=== PATIENT | male | born 1935 | race Caucasian/White ===

== ENCOUNTER 2019-11-15 03:15 | Observation (INO) | payer MEDICARE, SELFPAY ==
[2019-11-15] VITALS (13 sets, daily range): BP systolic 105–142; BP diastolic 51–79; PULSE 83–120; RESP 15–22; TEMP 36.4–37; O2SAT 94–99; BMI 28.0
--- NOTE | ~2019-11-15 | US_ITS ---
EXAMINATION: US carotid duplex BI DATE: 11/15/2019 09:50 INDICATION: Syncope. TECHNIQUE: Grayscale, color Doppler, and pulsed Doppler images of the cervical carotid arteries were obtained. The degree of vessel stenosis is placed in one of the following categories: normal, <50%, 5 0-69%, >=70% but less than near-occlusion, near-occlusion, or total occlusion. Note that percent sten osis relative to normal distal artery lumen diameter is indirectly measured from velocity measurement s as described by Papito, et al. Radiology 2003; 229:340-346. COMPARISON: None. FINDINGS: RIGHT: The right common carotid artery (CCA) peak systolic velocity (PSV) is 105 cm/s. The right internal ca rotid artery (ICA) PSV is 543 cm/s. The right ICA end-diastolic velocity (EDV) is 119 cm/s. The right ICA/CCA PSV ratio is 5.2. Grayscale and color Doppler images yield an estimate of >=50% diameter red uction from plaque in the ICA. There is antegrade flow in the right vertebral artery. LEFT: The left CCA PSV is 145 cm/s. The left ICA PSV is 115 cm/s. The left ICA EDV is 24 cm/s. The left ICA /CCA PSV ratio is 0.8. Grayscale and color Doppler images yield an estimate of <50% diameter reductio n from plaque in the ICA. There is antegrade flow in the left vertebral artery. IMPRESSION: 1. 50-69% stenosis in the right internal carotid artery. 2. <50% stenosis in the left internal carotid artery. Reviewed, dictated and finalized at location A. UP
--- NOTE | ~2019-11-15 | CT_ITS ---
EXAMINATION: CT brain wo con DATE: 11/15/2019 04:05 INDICATION: Syncope. Head injury. TECHNIQUE: Computed tomography (CT) of the head was performed without intravenous contrast. The mA wa s adjusted according to patient size. Iterative reconstruction technique was employed. The dose-lengt h product was 605.33 mGy-cm. COMPARISON: None FINDINGS: There are scattered areas of low attenuation in the cerebral white matter. There is an old lacunar infarct in left caudate nucleus. There is no intracranial hemorrhage, acute infarction, or ab normal intracranial mass lesion. The ventricles are normal in size. There is mucosal thickening in th e paranasal sinuses with thickening and sclerosis of some of the sinus gonzalez, consistent with chronic sinusitis. The mastoid air cells are normal. There are likely changes of ocular lens replacement graciela geries. IMPRESSION: 1. 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 2. Moderate nonspecific cerebral white matter disease, which likely represents chronic small vessel i schemic disease. 3. Chronic sinusitis. Reviewed, dictated and finalized at location A. ER HELPER IMPRESSION: 1. 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 2. Moderate nonspecific cerebral white matter disease, which likely represents chronic small vessel ischemic disease. 3. Chronic sinusitis.
--- NOTE | ~2019-11-15 | XR_ITS ---
EXAMINATION: XR chest 1V portable DATE: 11/15/2019 04:22 INDICATION: Chest pain. TECHNIQUE: A single frontal view of the chest was obtained. COMPARISON: Chest 2 views 03/31/2016, CT abdomen and pelvis 10/09/2017 FINDINGS: The chest demonstrates clear lungs without pneumonia, pleural effusion, or pneumothorax. Th e heart size is normal. There are old healed right rib fractures. IMPRESSION: 1. No acute cardiopulmonary disease. Reviewed, dictated and finalized at location A. E BREAKER
--- NOTE | ~2019-11-15 | XR_ITS ---
EXAMINATION: XR hip LT 2V w AP pelvis DATE: 11/15/2019 04:23 INDICATION: Left hip pain. Fall. TECHNIQUE: An anteroposterior view of the pelvis and 3 views of left hip were obtained. COMPARISON: CT abdomen and pelvis 10/09/2017 FINDINGS: Bone alignment is normal. No fracture. There is severe lower lumbar spondylosis. There is m ild osteoarthritis of the hips. IMPRESSION: 1. Mild osteoarthritis of the hips. Reviewed, dictated and finalized at location A. CLEARER
--- NOTE | 2019-11-15 03:38 | ECG_ITS ---
Measurements Intervals [place] Rate: 80 P: OR: 0 QRS: 34 QRSD: 98 T: 46 QT: 393 QTc: 455 Interpretive Statements ATRIAL FIBRILLATION LOW QRS VOLTAGE IN LIMB LEADS ABNORMAL ECG Electronically Signed On 11-15-2019 8:56:27 EMERGENCY ROOM TECH by Chaitanya Henrdon D.O.
--- NOTE | 2019-11-15 03:43 | ED.SYNCOPE ---
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 Pt c/o sob when EMS arrived, I have severe COPD , was given 2 duonebs, feeling better upon arrival to the ER. Pt also c/o left hip pain. Pt is on Xarelto for atrial fib. Denies neck pain, back pain, chest pain or abd pain. Denies speech or visual disturbance, focal weakness, or numbness. MD complaint: loss of consciousness Related Data Home Medications Medication Instructions Recorded Confirmed tiotropium bromide 2.5 2 inhalation INHALATION QAM 10/30/19 mcg/actuation mist for inhalation albuterol sulfate 90 mcg/actuation 1 inhalation INHALATION Q4H 11/02/19 aerosol inhaler doxazosin 4 mg tablet 4 mg PO DAILY 11/02/19 finasteride 5 mg tablet 5 mg PO DAILY 11/02/19 furosemide 40 mg tablet 40 mg PO QAM 11/02/19 ranitidine HCl 150 mg capsule 150 mg PO DAILY 11/02/19 rivaroxaban 20 mg tablet 20 mg PO DAILY 11/02/19 Allergies Allergy/AdvReac Type Severity Reaction Status Date / Time sucralfate Allergy Unknown unk Verified 11/15/19 04:36 Review of Systems Review of Systems: All systems reviewed & are unremarkable except as noted in HPI and below Constitutional: Constitutional: Denies body ache(s), Denies chills, Denies excessive sweating, Denies fatigue, Denies fever(s), Denies headache(s), Denies lethargy, Denies malaise, Denies weakness and Denies weight loss Eyes: Eyes: Denies blurry vision, Denies change in vision and Denies loss of vision ENT: Denies dizziness, Denies ear discharge, Denies headache(s), Denies lip swelling, Denies epistaxis, Denies nasal congestion, Denies neck pain, Denies throat swelling and Denies tongue swelling Cardiovascular: Cardiovascular: Denies chest pain, Denies chest pain at rest, Denies chest pain with activity, Denies diaphoresis, Denies rapid heart rate, Denies edema, Denies irregular heart rhythm, Denies lightheadedness, Denies palpitations, Denies dyspnea and Denies dyspnea on exertion Respiratory: Respiratory: Denies chest congestion, Denies cough, Denies hemoptysis, Reports dyspnea and Denies dyspnea on exertion Gastrointestinal: Gastrointestinal: Denies abdominal pain, Denies melena, Denies hematochezia, Denies diarrhea, Denies nausea, Denies vomiting and Denies hematemesis Musculoskeletal: Musculoskeletal: Denies abnormal gait, Denies deformity, Denies joint swelling, Denies limited range of motion, Denies neck pain and Denies numbness Neurologic: Denies Abnormal speech present, Denies abnormal gait, Denies confusion, Denies dizziness, Denies headache(s), Denies focal weakness, Denies loss of vision, Denies numbness, Denies Other visual disturbances, Denies Sensory deficit (Neuro) and Denies weakness Psychiatric: Psychiatric: Denies confusion, Denies depression, Denies auditory hallucinations, Denies homicidal ideation and Denies suicidal ideation Endocrine: Endocrine: Denies cold intolerance, Denies excessive sweating, Denies fatigue, Denies heat intolerance and Denies palpitations Hematologic/Lymphatic: Hematologic/Lymphatic: Denies easy bleeding and Denies easy bruising Allergic/Immunologic: Allergic/Immunologic: Denies lip swelling, Denies throat swelling and Denies tongue swelling PMF Past Medical History Medical History (Updated 11/15/19 @ 05:32 by Demarcus Arora MD) COPD with exacerbation Moderate persistent asthma without complication Pneumonia of both lungs due to infectious organism Family History Family History (Updated 07/08/14 @ 07:13 by DOCTOR UNKNOWN) Mother Cerebrovascular accident Father Family history of Alzheimer's disease Patient's father is Social History Social History (Updated 11/02/19 @ 10:39 by Lauren Garza
--- NOTE | 2019-11-15 03:52 | PC.NURSE ---
pt to CT & xray at this time via stretcher
[2019-11-15] MEDS: methylPREDNISolone SOD SUCC 125 MG VIAL IV PUSH (04:19)
[2019-11-15] MEDS: SODIUM CHLORIDE 0.9% IV 1,000 ML 999 ML IV CONT (04:19)
[2019-11-15 04:40] LABS: Basophils Percent Auto 0.3 % (0.2-1.2); Eosinophils Absolute Auto 0.2 K/mm3 (0-0.3); Eosinophils Percent Auto 1.8 % (0-4.4); Hematocrit 39.7 % (42.0-52.0); Hemoglobin 13.1 g/dL (14.0-18.0); Immature Granulocyte Absolute 0.04 K/mm3 (0.00-0.031); Immature Granulocyte Percent A 0.4 % (0-0.5); Lymphocytes Absolute Auto 1.36 K/mm3 (0.9-3.2); Lymphocytes Percent Auto 14.9 % (18.3-44.2); Mean Corpuscular Hemoglobin 31.4 pg (26-34); Mean Corpuscular Volume 95.2 fl (80-100); Mean Platelet Volume 9.9 fl (7.4-10.4); Monocytes Absolute Auto 0.5 K/mm3 (0.1-0.6); Monocytes Percent Auto 5.4 % (2.6-8.5); Neutrophils Percent Auto 77.2 % (45.5-73.1); Platelet Count Result 164 k/mm3 (150-375); Red Blood Count 4.17 M/mm3 (4.6-6.20); Red Cell Distribution Width 12.9 % (11.5-14.5); White Blood Count 9.1 K/mm3 (4.5-10.0)
[2019-11-15 04:50] LABS: INR 2.1; Partial Thromboplastin Time 37.5 SECONDS (22.3-36.8); Prothrombin Time 23.2 Seconds (11.1-14.7)
[2019-11-15 04:52] LABS: Blood Urea Nitrogen 20 mg/dL (9-20); Calcium 8.3 mg/dL (8.4-10.2); Carbon Dioxide 27 mmol/L (22-30); Chloride 104 mmol/L (98-107); Estimated Glomerular Filt Rate > 60; Glucose 109 mg/dL (75-110); Potassium 4.3 mmol/L (3.4-5.0); Sodium 138 mmol/L (137-145)
[2019-11-15 05:04] LABS: Troponin I < 0.012 ng/mL (0.000-0.034)
--- NOTE | 2019-11-15 06:43 | PC.NURSE ---
this RN just called [employer] to order pt breakfast, claire states theyd send it to [phone].
--- NOTE | 2019-11-15 06:56 | ADMGEN ---
This patient, Edmundo English, was admitted to [facility] at 0654. Patient/family oriented to hospital policies and general routines including ID bracelet, bed and alarms, visiting hours, pain management, procedures, bathroom and other care routines, personal items, smoking policy, room service/diet, and visiting hours. Valuables list has been completed. Information on how to activate the Rapid Response Team has been discussed. Patient/Family are encouraged to report perceived risks to care and to ask questions if they do not understand what they are told or what they should do.
--- NOTE | 2019-11-15 13:32 | PM.IMPN ---
Subjective Date/time seen: 11/15/19 1130 Objective Data Vital Signs Vital Signs: Vital Signs - 24 hr 11/15/19 03:17 11/15/19 04:41 11/15/19 05:20 Temperature 97.6 F Pulse Rate 93 83 92 Respiratory Rate 22 H 19 15 Blood Pressure 135/66 127/74 133/70 Pulse Oximetry 99 99 97 11/15/19 05:56 11/15/19 06:45 11/15/19 08:30 Temperature 97.5 F L Pulse Rate 98 105 H 106 H Respiratory Rate 16 16 18 Blood Pressure 142/59 H 124/79 125/65 Pulse Oximetry 97 97 96 11/15/19 12:00 Temperature Pulse Rate 120 H Respiratory Rate Blood Pressure Pulse Oximetry Intake/Output Intake/Output: Intake & Output 11/12/19 11/13/19 11/14/19 11/15/19 23:59 23:59 23:59 23:59 Intake Total 1240 Balance 1240 Meds/Results Radiology Results: ITS Impressions Chest X-Ray 11/15/19 08:06 IMPRESSION: 1. No acute cardiopulmonary disease. Hip/Pelvis X-Ray 11/15/19 08:07 IMPRESSION: 1. Mild osteoarthritis of the hips. Head CT 11/15/19 08:14 IMPRESSION: 1. 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 2. Moderate nonspecific cerebral white matter disease, which likely represents chronic small vessel ischemic disease. 3. Chronic sinusitis. Carotid Doppler Study 11/15/19 09:51 IMPRESSION: 1. 50-69% stenosis in the right internal carotid artery. 2. <50% stenosis in the left internal carotid artery. Labs Labs: Laboratory Results - last 24 hr 11/15/19 11/15/19 11/15/19 04:32 04:32 04:32 WBC 9.1 RBC 4.17 L Hgb 13.1 L Hct 39.7 L MCV 95.2 MCH 31.4 MCHC 33.0 RDW 12.9 Plt Count 164 MPV 9.9 Immature Gran % (Auto) 0.4 Neut % (Auto) 77.2 H Lymph % (Auto) 14.9 L Mclennan % (Auto) 5.4 Eos % (Auto) 1.8 Baso % (Auto) 0.3 Lymph # (Auto) 1.36 Mclennan # (Auto) 0.5 Eos # (Auto) 0.2 Baso # (Auto) 0.0 Abs Immat Gran (auto) 0.04 H Absolute Neuts (auto) 7.0 H Absolute Nucleated RBC 0.0 Nucleated RBC % 0.0 PT 23.2 H INR 2.1 APTT 37.5 H Sodium 138 Potassium 4.3 Chloride 104 Carbon Dioxide 27 BUN 20 Creatinine 0.90 Estim Creat Clear Calc Not Reportable Estimated GFR > 60 Glucose 109 Calcium 8.3 L Troponin I < 0.012
--- NOTE | 2019-11-15 13:36 | PM.IMHP ---
H&P: HPI History of Present Illness Chief complaint: syncope Narrative: Date of Service 11/15/2019 Supervising physician for this history and physical is Dr. Valenzuela. Mr. English is an 84yo M with history of chronic atrial fibrillation, COPD, BPH, and bladder cancer who presented to the ED for evaluation after a syncopal episode. He reports he does not remember any of the episode, but was told he was found on the bathroom floor wedged between the toilet and the bathtub. He was told he was unconscious for several minutes, per his . His was in the other room, heard him fall, and quickly came to check on him, activated EMS. He does believe he hit his head. He denies dizziness, lightheadedness, chest pain, or shortness of breath at that time or at present. He does not remember getting up to walk to the bathroom. He describes left hip pain this morning but otherwise feels well and would like to go home. He denies any similar symptoms in the past, may have lost consciousness 1 other time ?many years ago . he describes exertional dyspnea that is chronic for him, no worse lately than his normal. He attributes his shortness of breath with activity to his advanced COPD, and he does not go anywhere without his albuterol inhaler available. He denies any headache or vision changes. He denies a history of any seizure disorder. He reports his established pecan picker is at [facility] and believes he recently underwent cardiac catheterization 3 months ago but did not get any coronary stents. He last saw his pecan picker at [place] couple weeks ago and was started on Lasix. He is unsure if he has had an echocardiogram recently. He also underwent repeat cystoscopy by Dr. Smith about 2 months ago for bladder tumor. He does follow with Dr. Cameron's office as well for his COPD. EKG showed atrial fibrillation, rate 80. Brain with an old lacunar infarct in the left caudate nucleus otherwise moderate nonspecific chronic small vessel disease. Patient was unaware he had had a stroke in the past. Left hip x-ray shows mild osteoarthritis of the hips. Chest x-ray shows no acute cardiopulmonary disease. Patient is admitted to observation for evaluation of syncope. He is agreeable to staying overnight to get an echocardiogram tomorrow. Review of Systems Review of Systems: Narrative: He describes left hip pain since his fall. He denies chest pain, dizziness, sweating, lightheadedness, headache, or vision changes. He denies nausea, vomiting, or diarrhea. Twelve systems were reviewed with pertinent positives and negatives as per HPI. [facility] Past Medical History Medical History Bladder cancer BPH (benign prostatic hyperplasia) COPD with exacerbation Moderate persistent asthma without complication Pneumonia of both lungs due to infectious organism Surgical History Surgical History H/O transurethral destruction of bladder lesion Follows with Dr Smith. TURBT removed 3 tumors per patient. Had cysto 2months ago by Dr Smith. History of nasal surgery x3. Two surgeries at [facility], one at [facility]. Family History Family History Mother Cerebrovascular accident Father Family history of Alzheimer's disease Patient's father is Social History Social History (Updated 11/15/19 @ 13:57 by Bhargavi Frias PA-C) Social History: Patient lives at home with his . He drinks about 1-2 beers per week. He smoked 1ppd cigarettes x 30 years and quit smoking in the . No substance use. His PCP is Dr Julien Dewitt. He designates his , Sade, as his surrogate decision maker. He wishes to be full code status, but would not wish to be kept on life support for a long period of time. Smoking packs per day: 0.2 Smoking cigarettes per day: 4.0 Year
[2019-11-15 13:47] LABS: Magnesium 1.9 mg/dL (1.6-2.3); Potassium 4.5 mmol/L (3.4-5.0)
[2019-11-15] MEDS: FUROSEMIDE 40 MG TABLET PO (14:38)
[2019-11-15] MEDS: FINASTERIDE 5 MG TABLET PO (14:38)
[2019-11-15] MEDS: DOXAZOSIN MESYLATE 4 MG TABLET PO (14:38)
[2019-11-15] MEDS: MONTELUKAST SODIUM 10 MG TABLET PO (14:39)
[2019-11-15] MEDS: ALBUTEROL SULFATE NEB 2.5 MG/0.5 ML INH INHALATION (20:27)
[2019-11-15] MEDS: RIVAROXABAN 20 MG TABLET PO (21:54)
[2019-11-15] MEDS: FAMOTIDINE 20 MG TABLET PO (21:54)
[2019-11-16] VITALS (9 sets, daily range): BP systolic 101–116; BP diastolic 50–60; PULSE 70–109; RESP 16–20; TEMP 36.6–36.8; O2SAT 93–96
--- NOTE | 2019-11-16 | ECHO_ITS ---
Patient Info Name: Edmundo English Age: 84 years : 1935 Gender: Male Ht: 70 in Wt: 195 lbs BSA: 2.11 m2 HR: 70 bpm BP: 116 / 50 mmHg Heart Rhythm: Atrial Fibrillation Technical Quality: Good Exam Date: 11/16/2019 10:15 AM Exam Location: [facility] Pulmonary Exam Room: 321 Patient Status: Inpatient Admit Date: 11/15/2019 Staff Ordering Physician: Bhargavi Frias PA-C Chlorine Operator: Brissa Avendaño RDCS Attending Provider: Bhargavi Frias PA-C Exam Type: CA echo doppler w bubble study Study Info Indications - SYNCOPE Complete two-dimensional, color flow and Doppler transthoracic echocardiogram is performed with agitated saline. Contrast/Agitated Saline Contrast/Ag. Saline: Agitated Saline Amount: 20.00 ml Administered By: Jasmine Alexandra RN Existing IV Access: Yes IV Access Condition: patent with no signs of infiltration Summary 1. Left ventricular chamber dimension is normal. 2. Left ventricular systolic function is normal, estimated at 55-60%. 3. Mild mitral and tricuspid insufficiency. 4. Severe biatrial dilation. 5. Saline contrast exam demonstrating no evidence of shunting. Left Ventricle Left ventricular chamber dimension is normal. Left ventricular systolic function is normal, estimated at 55-60%. Right Ventricle Right ventricular chamber dimension is normal. Left Atria Left atrial chamber dimension is severely enlarged. Right Atria Right atrial chamber dimension is severely enlarged. Aortic Valve The aortic valve is trileaflet. There is mild aortic valve sclerosis. There is no aortic valve stenosis. Pulmonic Valve The pulmonic valve is not well visualized. Mitral Valve The mitral valve has normal leaflets. There is trace mitral valve regurgitation. Tricuspid Valve The tricuspid valve leaflets are normal. There is mild tricuspid valve regurgitation. Pericardium/Pleural The pericardium appears normal. Aorta The aortic root size at the sinus of Valsalva is normal. Left Ventricular Outflow Tract Name Value Normal LVOT 2D LVOT Diameter 2.0 cm LVOT Doppler LVOT Peak Gradient 4 mmHg LVOT Mean Gradient 3 mmHg LVOT VTI 20 cm LVOT VTI/AV VTI Ratio 0.8 LVOT Stroke Volume 67 ml LVOT CO 15.2 l/min LVOT CI 7.2 l/min/m2 Pulmonic Valve Name Value Normal PV Doppler PV Peak Gradient 2 mmHg Mitral Valve Name Value Normal MV Dopp
[2019-11-16] MEDS: ALBUTEROL SULFATE NEB 2.5 MG/0.5 ML INH INHALATION ×2 (02:17→10:06)
[2019-11-16 06:33] LABS: Hematocrit 37.8 % (42.0-52.0); Hemoglobin 12.5 g/dL (14.0-18.0); Immature Granulocyte Absolute 0.04 K/mm3 (0.00-0.031); Immature Granulocyte Percent A 0.5 % (0-0.5); Lymphocytes Absolute Auto 0.76 K/mm3 (0.9-3.2); Lymphocytes Percent Auto 9.1 % (18.3-44.2); Mean Corpuscular HGB Conc 33.1 g/dl (32-36); Mean Corpuscular Hemoglobin 31.3 pg (26-34); Mean Corpuscular Volume 94.5 fl (80-100); Mean Platelet Volume 9.8 fl (7.4-10.4); Monocytes Absolute Auto 0.6 K/mm3 (0.1-0.6); Monocytes Percent Auto 6.8 % (2.6-8.5); Neutrophils Percent Auto 83.6 % (45.5-73.1); Platelet Count Result 160 k/mm3 (150-375); Red Cell Distribution Width 12.8 % (11.5-14.5); White Blood Count 8.4 K/mm3 (4.5-10.0)
[2019-11-16 06:45] LABS: Blood Urea Nitrogen 19 mg/dL (9-20); Calcium 8.8 mg/dL (8.4-10.2); Carbon Dioxide 28 mmol/L (22-30); Chloride 101 mmol/L (98-107); Estimated CRCL calculation 63 ml/min; Estimated Glomerular Filt Rate > 60; Glucose 131 mg/dL (75-110); Magnesium 2.1 mg/dL (1.6-2.3); Phosphorus 3.9 mg/dL (2.5-4.5); Sodium 136 mmol/L (137-145)
[2019-11-16] MEDS: MONTELUKAST SODIUM 10 MG TABLET PO (09:49)
[2019-11-16] MEDS: FUROSEMIDE 40 MG TABLET PO (09:49)
[2019-11-16] MEDS: FINASTERIDE 5 MG TABLET PO (09:49)
[2019-11-16] MEDS: DOXAZOSIN MESYLATE 4 MG TABLET PO (09:52)
[2019-11-16] MEDS: FAMOTIDINE 20 MG TABLET PO (10:00)
[2019-11-16] MEDS: ASPIRIN 81 MG ENTERIC TABLET PO (11:09)
--- NOTE | 2019-11-16 21:38 | PM.DS ---
DS: Diagnosis Admitting Diagnosis Admitting Diagnosis: Syncope and collapse Discharge Diagnosis (1) Syncope: Qualifiers: Syncope type: unspecified Qualified Code(s): R55 - Syncope and collapse Code(s): R55 - Syncope and collapse Status: Acute Assessment and Plan: Date of Service 11/16/19: Mr. English is an 84yo M with history of chronic atrial fibrillation, hypertension, COPD, sleep apnea, and bladder cancer who presented to the ED for evaluation after a syncopal episode at home. He reports he sustained a ground-level fall while in the bathroom and hit his head. He does not recall the event and denied denied dizziness, lightheadedness, chest pain, speech or vision changes. His syncope may have been a result of a vasovagal episode. CT brain showed an old infarct, but no acute intracranial abnormalities. Carotid dopplers showed 50-69% stenosis on the right. Patient reported he had previously been on statin therapy for many years. We discussed deferring the decision for resuming statin therapy to Dr Dewitt, PCP. His atrial fibrillation was persistent through this hospital stay; rate was controlled and he was asymptomatic. He was maintained on his home cardura and Xarelto. He was hemodynamically stable for discharge 11/16/19 and instructed to follow up with PCP and his gifts officer at [place], Dr Giordano. Patient wished to discharge prior to echocardiogam being read. He was instructed to sign medical record release so his gifts officer could have his echocardiogram results. Echo shows severe biatrial enlargement, normal systolic function EF 55-60%, mild mitral and tricuspid insufficiency, bubble study revealed no evidence of abnormal shunting. Patient presents from home after a syncopal episode at home. He did hit his head. CT brain without acute findings. Carotid dopplers show 50-69% stenosis in right internal carotid; <50% stenosis left internal carotid. Trop negative. Echo results below. (2) Atrial fibrillation: Qualifiers: Atrial fibrillation type: unspecified Qualified Code(s): I48.91 - Unspecified atrial fibrillation Code(s): I48.91 - Unspecified atrial fibrillation Status: Acute Assessment and Plan: Chronic. Continue cardura and xarelto. Telemetry shows A fib today, asymptomatic. (3) EROS (obstructive sleep apnea): Code(s): G47.33 - Obstructive sleep apnea (adult) (pediatric) Status: Acute Assessment and Plan: Reports he does not use CPAP at home, he uses a mouth piece. (4) Essential hypertension: Code(s): I10 - Essential (primary) hypertension Status: Acute Assessment and Plan: Continue home medications. BP stable. (5) Chronic obstructive pulmonary disease: Code(s): J44.9 - Chronic obstructive pulmonary disease, unspecified Status: Acute Assessment and Plan: No acute respiratory distress. He follows with Dr Cameron's office. Continue home regimen with singular, albuterol nebs if needed. (6) Bladder cancer: Code(s): C67.9 - Malignant neoplasm of bladder, unspecified Status: Acute Assessment and Plan: Under the care of urology. Patient reports he had tumors removed in 2017 and recently had another cystoscopy by Dr Smith 2mo ago. Continue follow up as scheduled. (7) DVT prophylaxis: Code(s): Z29.9 - Encounter for prophylactic measures, unspecified Status: Acute Assessment and Plan: Xarelto. DS: Summary Time Spent with Patient Time attestation: Total time spent providing and/or coordinating discharge services: 35 minutes Exam Narrative: Exam Narrative: General: Well-developed, well-nourished elderly male sitting up in bed in no acute distress. HEENT: Normocephalic, atraumatic, EOMI,
== END 2019-11-16 15:15 | disposition home or self-care (01) ==
LOC: ANHED 05:33 → ANH3MEDSUR 06:58
PROVIDERS: Physician Assistant; Admitting Provider Family Medicine; Emergency Provider Emergency Medicine; PCP Family Medicine; Visit Provider Internal Medicine
DX: R55 Syncope and collapse (principal); I65.21 Occlusion and stenosis of right carotid artery; I48.20 Chronic atrial fibrillation, unspecified; G47.33 Obstructive sleep apnea (adult) (pediatric); I10 Essential (primary) hypertension; J44.9 Chronic obstructive pulmonary disease, unspecified; J45.40 Moderate persistent asthma, uncomplicated; C67.9 Malignant neoplasm of bladder, unspecified; Z79.01 Long term (current) use of anticoagulants; Z79.899 Other long term (current) drug therapy; Z86.73 Personal history of transient ischemic attack (TIA), and cerebral infarction without residual deficits; Z87.891 Personal history of nicotine dependence; W19.XXXA Unspecified fall, initial encounter; Y93.E8 Activity, other personal hygiene
CPT/HCPCS: 36415; 70450; 71045; 73502; 73521; 80048; 83735; 84100; 84132; 84484; 85025; 85610; 85730; 93005; 93306; 93880; 94640; 96361; 96374; 96375; 99285; A9270; G0378; J2930; J7030

== ENCOUNTER 2019-12-15 01:23 | Emergency (ER) | payer MEDICARE, SELFPAY ==
--- NOTE | 2019-12-15 01:36 | ED.DIZZY ---
HPI - Dizziness General Chief Complaint: Dizziness Stated Complaint: dizzy Time Seen by Provider: 12/15/19 01:32 Source: patient and RN notes reviewed Mode of arrival: ambulatory Limitations: no limitations History of Present Illness HPI Narrative: Pt is a 84 y/o male with a Hx of COPD, who presents to the ED with c/o dizziness starting this evening. He notes that he was able to walk a significant distance earlier yesterday evening. Pt's states that she found the pt sitting on the side of his bed early this morning. She notes that he was complaining of dizziness and SOB. Pt states that he becomes dizzy, short of breath, and nauseated when he lays down. He describes his dizziness as both room spinning and lightheadedness. Pt notes that his symptoms alleviate when he sits upright. He states that he felt off-balance while walking early this morning, but denies any cough, fever, sinus congestion, otalgia, or tinnitus. He notes that he is concerned he may be having a stroke. Pt is currently taking Lasix. He notes that he was recently hospitalized following a syncopal episode several weeks ago. MD elicited complaint: dizziness Description: room spinning and lightheadedness Exacerbating factors: position/lying down Relieving factors: other (sitting up) Associated symptoms: nausea and shortness of breath Associated neuro symptoms: other (troubled balance) Related Data Home Medications Medication Instructions Recorded Confirmed albuterol sulfate 90 mcg/actuation 1 inhalation INHALATION Q4H 11/02/19 11/15/19 aerosol inhaler doxazosin 4 mg tablet 4 mg PO DAILY 11/02/19 11/15/19 finasteride 5 mg tablet 5 mg PO DAILY 11/02/19 11/15/19 furosemide 40 mg tablet 40 mg PO QAM 11/02/19 11/15/19 ranitidine HCl 150 mg capsule 150 mg PO Q12H 11/02/19 11/15/19 rivaroxaban 20 mg tablet 20 mg PO DAILY 11/02/19 12/15/19 Allergies Allergy/AdvReac Type Severity Reaction Status Date / Time sucralfate Allergy Unknown unk Verified 12/15/19 01:34 Review of Systems Review of Systems: All systems reviewed & are unremarkable except as noted in HPI and below Constitutional: Constitutional: Denies fever(s) ENT: Denies otalgia, Denies nasal congestion and Denies tinnitus Respiratory: Respiratory: Denies cough and Reports dyspnea Gastrointestinal: Gastrointestinal: Reports nausea Neurologic: Reports dizziness and Reports other (troubled balance) [facility] Past Medical History Medical History (Updated 12/15/19 @ 03:11 by Papito Maxwell MD) Arthritis Asthma Atrial fibrillation Bladder cancer BPH (benign prostatic hyperplasia) Carotid stenosis Chronic obstructive pulmonary disease COPD with exacerbation Dyslipidemia Essential hypertension Moderate persistent asthma without complication Old cerebrovascular accident (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 TURBT removed 3 tumors per patient. Had cysto 2months ago by Dr Smith. History of nasal surgery x3. Two surgeries at [facility], one at [facility]. Social History Social History Social History: Patient lives at home with his . He drinks about 1-2 beers per week. He smoked 1ppd cigarettes x 30 years and quit smoking in the . No substance use. His PCP is Dr Julien Dewitt. He designates his , Sade, as his surrogate decision maker. He wishes to be full code status, but would not wish to be kept on life support for a long period of time. Smoking packs per day: 0.2 Smoking cigarettes per day: 4.0 Years smoked: 15 Smoking pack-years: 3.00 Smoking status: Former smoker Tobacco type: cigarettes Smokeless tobacco user: chewing tobacco Smoking end date: 12/10/74 Alcohol intake: c
[2019-12-15 01:40] VITALS: BP 140/109; PULSE 104; RESP 20; TEMP 36.7; O2SAT 100
--- NOTE | 2019-12-15 01:44 | ECG_ITS ---
Measurements Intervals [place] Rate: 92 P: [place]: 0 QRS: 67 QRSD: 95 T: 30 QT: 359 QTc: 445 Interpretive Statements ATRIAL FIBRILLATION ABNORMAL ECG Electronically Signed On 12-15-2019 7:06:38 [employer] by Chaitanya Herndon D.O.
[2019-12-15 01:52] VITALS: BP 155/73; PULSE 75
[2019-12-15 01:53] VITALS: BP 138/93; PULSE 85
[2019-12-15 01:56] VITALS: BP 115/78; PULSE 85
[2019-12-15] MEDS: SODIUM CHLORIDE 0.9% IV 500 ML 999 ML IV CONT (02:00)
[2019-12-15 02:10] LABS: Basophils Percent Auto 0.8 % (0.2-1.2); Eosinophils Absolute Auto 0.2 K/mm3 (0-0.3); Eosinophils Percent Auto 4.6 % (0-4.4); Hematocrit 38.2 % (42.0-52.0); Hemoglobin 12.4 g/dL (14.0-18.0); Immature Granulocyte Absolute 0.02 K/mm3 (0.00-0.031); Immature Granulocyte Percent A 0.4 % (0-0.5); Lymphocytes Absolute Auto 1.34 K/mm3 (0.9-3.2); Lymphocytes Percent Auto 28.1 % (18.3-44.2); Mean Corpuscular HGB Conc 32.5 g/dl (32-36); Mean Corpuscular Hemoglobin 31.2 pg (26-34); Mean Corpuscular Volume 96.2 fl (80-100); Mean Platelet Volume 9.9 fl (7.4-10.4); Monocytes Absolute Auto 0.5 K/mm3 (0.1-0.6); Monocytes Percent Auto 10.3 % (2.6-8.5); Neutrophils Absolute Auto 2.7 K/mm3 (1.3-6.7); Neutrophils Percent Auto 55.8 % (45.5-73.1); Platelet Count Result 155 k/mm3 (150-375); Red Blood Count 3.97 M/mm3 (4.6-6.20); White Blood Count 4.8 K/mm3 (4.5-10.0)
[2019-12-15 02:17] VITALS: BP 143/69; PULSE 79; RESP 12; O2SAT 99
[2019-12-15 02:24] LABS: Blood Urea Nitrogen 20 mg/dL (9-20); Calcium 8.7 mg/dL (8.4-10.2); Carbon Dioxide 31 mmol/L (22-30); Chloride 100 mmol/L (98-107); Estimated CRCL calculation 56 ml/min; Estimated Glomerular Filt Rate > 60; Glucose 103 mg/dL (75-110); Potassium 4.4 mmol/L (3.4-5.0); Sodium 137 mmol/L (137-145)
[2019-12-15 02:31] LABS: Add Urine Microscopic? YES; Appearance Urine Clear (Clear); Bilirubin Urine Negative (Negative); Blood Urine 3+ (Negative); Color Urine Yellow (Yellow); Glucose Urine UA Negative (Negative); Ketones Urine Negative (Negative); Leukocyte Esterase Ur Negative LEU/UL (Negative); Mucus Urine Few /lpf; Nitrate Urine Negative (Negative); Protein Urine 1+ mg/dL (Negative); RBC Urine >75 /hpf (0-2); Specific Grav Ur 1.021 (1.001-1.035); WBC Urine 0-3 /hpf
[2019-12-15 03:00] VITALS: BP 126/77; PULSE 73; RESP 15; O2SAT 96
== END 2019-12-15 03:15 | disposition home or self-care (01) ==
PROVIDERS: Emergency Provider Emergency Medicine; PCP Family Medicine
DX: E86.0 Dehydration (principal); R42 Dizziness and giddiness; I48.91 Unspecified atrial fibrillation; Z87.891 Personal history of nicotine dependence; M19.90 Unspecified osteoarthritis, unspecified site; J45.909 Unspecified asthma, uncomplicated; J44.9 Chronic obstructive pulmonary disease, unspecified; E78.5 Hyperlipidemia, unspecified; I10 Essential (primary) hypertension; G47.30 Sleep apnea, unspecified; Z86.73 Personal history of transient ischemic attack (TIA), and cerebral infarction without residual deficits
CPT/HCPCS: 36415; 80048; 81001; 85025; 93005; 99284; J7040

== ENCOUNTER 2020-01-06 14:15 | Outpatient (CLI) | payer MEDICARE, SELFPAY ==
[2020-01-06 14:48] LABS: INR 1.4; Prothrombin Time 16.3 Seconds (11.1-14.7)
[2020-01-06 14:49] LABS: Partial Thromboplastin Time 35.2 SECONDS (22.3-36.8)
== END 2020-01-06 14:16 | disposition home or self-care (01) ==
LOC: ANHSURGERY 14:17
PROVIDERS: PCP Family Medicine; Visit Provider Urology
DX: D49.4 Neoplasm of unspecified behavior of bladder (principal)
CPT/HCPCS: 36415; 85610; 85730; 87086

== ENCOUNTER 2020-01-12 00:19 | Day surgery (SDC) | payer MEDICARE, SELFPAY ==
[2020-01-05 15:04] VITALS: BMI 28.0
[2020-01-12] VITALS (7 sets, daily range): BP systolic 116–140; BP diastolic 66–91; PULSE 74–100; RESP 12–18; TEMP 36.5–36.8; O2SAT 84–100; BMI 29.0
--- NOTE | 2020-01-12 08:13 | WPDANESEPPF ---
Anes - Initial Pre Proc Eval Procedure: Operation Date: 01/12/20 09:30 Proposed Procedures p Cystoscopy, Bladder Biopsy With Fulguration - Vinayak Smith MD s Possible Transurethral Resection Bladder Tumor - Vinayak Smith MD Date/Time: 01/12/20 08:13 Surgeon: Vinayak Smith MD Pre Op Diagnosis: Bladder Tumor Patient Data Age: 84 Gender: M Height: 1.75 m Weight: 86.18 kg Allergies Allergy/AdvReac Type Severity Reaction Status Date / Time sucralfate Allergy Unknown Hives Verified 01/05/20 13:44 Home Medications Medication Instructions Recorded Confirmed Type albuterol sulfate 2.5 mg INHALATION Q4-6H PRN #120 ml 09/22/19 01/05/20 Rx montelukast 10 mg tablet 10 mg PO DAILY #90 tablet 10/20/19 01/05/20 Rx albuterol sulfate 90 mcg/actuation 1 inhalation INHALATION Q4H PRN 11/02/19 01/05/20 History aerosol inhaler doxazosin 4 mg tablet 4 mg PO DAILY 11/02/19 01/05/20 History finasteride 5 mg tablet 5 mg PO DAILY 11/02/19 01/05/20 History ranitidine HCl 150 mg capsule 150 mg PO Q12H 11/02/19 01/05/20 History rosuvastatin 10 mg tablet 10 mg PO DAILY #30 tablet 11/20/19 01/05/20 Rx fluticasone fur. 100 mcg-umeclid 1 inhalation INHALATION DAILY #60 11/23/19 01/05/20 Rx 62.5 mcg-vilant 25 mcg each inhalat.powder rivaroxaban 20 mg tablet 20 mg PO DAILY #30 tablet 12/23/19 01/05/20 Rx calcium polycarbophil [FiberCon] 1,250 mg PO DAILY 01/05/20 01/05/20 History ECG: Date of Service: 12/15/19 Procedure(s): CA 12 lead EKG Accession Number(s): [id number] cc: ~ Measurements Intervals [place] Rate: 92 P: [place]: 0 QRS: 67 QRSD: 95 T: 30 QT: 359 QTc: 445 Interpretive Statements ATRIAL FIBRILLATION ABNORMAL ECG Electronically Signed On 12-15-2019 7:06:38 [employer] by Chaitanya Herndon D.O. Dictated By: Chaitanya Herndon DO 12/15/19 0143 Patient hx anesthesia problems: none Family hx anesthesia problems: none PMFSH Past Medical History Medical History (Updated 01/12/20 @ 08:16 by Regino Lozano MD) Arthritis Asthma Atrial fibrillation Bladder cancer BPH (benign prostatic hyperplasia) Carotid stenosis Chronic obstructive pulmonary disease COPD with exacerbation Dyslipidemia Essential hypertension Moderate persistent asthma without complication Old cerebrovascular accident (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 TURBT removed 3 tumors per patient. Had cysto 2months ago by Dr Smith. History of nasal surgery x3. Two surgeries at [facility], one at [facility]. Social History Social History Social History: Patient lives at home with his . He drinks about 1-2 beers per week. He smoked 1ppd cigarettes x 30 years and quit smoking in the . No substance use. His PCP is Dr Julien Dewitt. He designates his , Sade, as his surrogate decision maker. He wishes to be full code status, but would not wish to be kept on life support for a long period of time. Smoking packs per day: 0.2 Smoking cigarettes per day: 4.0 Years smoked: 15 Smoking pack-years: 3.00 Smoking status: Former smoker Tobacco type: cigarettes Smokeless tobacco user: chewing tobacco Smoking end date: 12/10/74 Alcohol intake: current Drinks per week: 1 Substance use: never Substance use type: does not use Gender identity (if verbalized by the patient): Male Spiritual care concerns: No Agree to blood products:
--- NOTE | 2020-01-12 08:20 | PM.IMHP ---
H&P: HPI History of Present Illness Chief complaint: Bladder Tumor Narrative: Edmundo English is a 84 year old male with history of low-grade bladder tumors. During a surveillance cystoscopy in the office he was found to have 2 tumors which each measured 1 cm along the posterior wall of the bladder. He now presents for transurethral resection of bladder tumors. Review of Systems Review of Systems: All systems reviewed & are unremarkable except as noted in HPI and below Cardiovascular: Cardiovascular: Reports no additional cardiovascular complaints PMFSH Past Medical History Medical History Arthritis Asthma Atrial fibrillation Bladder cancer BPH (benign prostatic hyperplasia) Carotid stenosis Chronic obstructive pulmonary disease COPD with exacerbation Dyslipidemia Essential hypertension Moderate persistent asthma without complication Old cerebrovascular accident (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 TURBT removed 3 tumors per patient. Had cysto 2months ago by Dr Smith. History of nasal surgery x3. Two surgeries at [facility], one at [facility]. Family History Family History Mother Cerebrovascular accident Father Family history of Alzheimer's disease Patient's father is Social History Social History Social History: Patient lives at home with his . He drinks about 1-2 beers per week. He smoked 1ppd cigarettes x 30 years and quit smoking in the . No substance use. His PCP is Dr Julien Dewitt. He designates his , Sade, as his surrogate decision maker. He wishes to be full code status, but would not wish to be kept on life support for a long period of time. Smoking packs per day: 0.2 Smoking cigarettes per day: 4.0 Years smoked: 15 Smoking pack-years: 3.00 Smoking status: Former smoker Tobacco type: cigarettes Smokeless tobacco user: chewing tobacco Smoking end date: 12/10/74 Alcohol intake: current Drinks per week: 1 Substance use: never Substance use type: does not use Gender identity (if verbalized by the patient): Male Spiritual care concerns: No Agree to blood products: Yes Meds Home Medications and Allergies Home Medications Medication Instructions Recorded Confirmed Type albuterol sulfate 2.5 mg INHALATION Q4-6H PRN #120 ml 09/22/19 01/05/20 Rx montelukast 10 mg tablet 10 mg PO DAILY #90 tablet 10/20/19 01/05/20 Rx albuterol sulfate 90 mcg/actuation 1 inhalation INHALATION Q4H PRN 11/02/19 01/05/20 History aerosol inhaler doxazosin 4 mg tablet 4 mg PO DAILY 11/02/19 01/05/20 History finasteride 5 mg tablet 5 mg PO DAILY 11/02/19 01/05/20 History ranitidine HCl 150 mg capsule 150 mg PO Q12H 11/02/19 01/05/20 History rosuvastatin 10 mg tablet 10 mg PO DAILY #30 tablet 11/20/19 01/05/20 Rx fluticasone fur. 100 mcg-umeclid 1 inhalation INHALATION DAILY #60 11/23/19 01/05/20 Rx 62.5 mcg-vilant 25 mcg each inhalat.powder rivaroxaban 20 mg tablet 20 mg PO DAILY #30 tablet 12/23/19 01/05/20 Rx calcium polycarbophil [FiberCon] 1,250 mg PO DAILY 01/05/20 01/05/20 History Allergies Allergy/AdvReac Type Severity Reaction Status Date / Time sucralfate Allergy Unknown Hives Verified 01/05/20 13:44 Exam Const: General: no acute distress HENMT: General nose exam: Normal nares present Resp: Effort & Inspection: normal respiratory effort Cardio: Rate: regular rate Rhythm: regular rhythm GI: GI Palp: Yes Soft to palpation Skin: General skin exam: normal color Neuro: Speech: normal speech
[2020-01-12] MEDS: LACTATED RINGERS 1,000 ML 30 ML IV CONT (08:45)
[2020-01-12 09:05] LABS: INR 1.1
[2020-01-12] MEDS: ceFAZolin 2 GM/D5W 50 ML 2 GM/50 ML BAG IVPB (09:31)
[2020-01-12] MEDS: LIDOCAINE HCL 2% GEL UROJET 10 ML PKG MUCOUS MEM (09:56)
--- NOTE | 2020-01-12 10:02 | P.OP_ITS ---
Procedure Note - Detailed Date of procedure: 01/12/20 Pre-op diagnosis: Bladder Tumor Post-op diagnosis: same Procedure performed: Cystoscopy with bladder biopsy and fulguration. Three distinct tumors each measuring approximately 7-9mm. Location is posterior wall and then near dome Description of procedure: Patient was taken to the operative suite and correctly identified. Once general anesthesia was obtained he was placed in the dorsal lithotomy position and prepped and draped usual sterile fashion. Twenty-two [place] scope was inserted into the bladder and direct vision. He has some mild lateral lobe hypertrophy. Was noted that he had 3 distinct tumors. There were 2 tumors near the dome measuring 8-9 mm each. Third lesion was along the posterior wall. He also some erythema near the prior resection site on the right lateral wall. Using a cold cup biopsy we retrieved the 3 papillary lesions. These are sent for pathologic review. We then fulgurated the base also fulgurated the erythematous areas along the right lateral wall. There was good hemostasis at termination of procedure. Patient is taken recovery in stable condition after 2% viscous lidocaine was inserted into the urethra. This to call for path results in a week's time. Anesthesia: GLMA Surgeon: Vinayak Smith MD Drains: No Packing: No Pathology: yes Complications: No immediate complications Condition: stable Disposition: PACU
== END 2020-01-12 11:50 | disposition home or self-care (01) ==
PROVIDERS: PCP Family Medicine; Visit Provider Urology
PROC: 0TBB8ZX Excision of Bladder, Via Natural or Artificial Opening Endoscopic, Diagnostic (ICD-10-PCS; CPT 52204; principal; 2020-01-12 09:30)
DX: C67.1 Malignant neoplasm of dome of bladder (principal); C67.4 Malignant neoplasm of posterior wall of bladder; I10 Essential (primary) hypertension; I48.91 Unspecified atrial fibrillation; E78.5 Hyperlipidemia, unspecified; J44.9 Chronic obstructive pulmonary disease, unspecified; G47.33 Obstructive sleep apnea (adult) (pediatric); N40.0 Benign prostatic hyperplasia without lower urinary tract symptoms; M19.90 Unspecified osteoarthritis, unspecified site; Z79.01 Long term (current) use of anticoagulants; Z86.73 Personal history of transient ischemic attack (TIA), and cerebral infarction without residual deficits; Z87.891 Personal history of nicotine dependence
CPT/HCPCS: 52204; 52234; 36415; 85610; 88305; J0690; J1100; J2405; J2704; J3010; J7120

== ENCOUNTER 2021-02-17 08:08 | Outpatient (CLI) | payer MEDICARE, SELFPAY ==
[2021-02-17 08:29] LABS: Basophils Percent Auto 0.6 % (0.2-1.2); Eosinophils Absolute Auto 0.2 K/mm3 (0-0.3); Eosinophils Percent Auto 3.6 % (0-4.4); Hematocrit 36.9 % (42.0-52.0); Hemoglobin 12.4 g/dL (14.0-18.0); Immature Granulocyte Absolute 0.01 K/mm3 (0.00-0.031); Immature Granulocyte Percent A 0.2 % (0-0.5); Lymphocytes Absolute Auto 1.39 K/mm3 (0.9-3.2); Lymphocytes Percent Auto 28.1 % (18.3-44.2); Mean Corpuscular HGB Conc 33.6 g/dl (32-36); Mean Corpuscular Hemoglobin 31.3 pg (26-34); Mean Corpuscular Volume 93.2 fl (80-100); Mean Platelet Volume 9.7 fl (7.4-10.4); Monocytes Absolute Auto 0.3 K/mm3 (0.1-0.6); Monocytes Percent Auto 6.5 % (2.6-8.5); Platelet Count Result 157 k/mm3 (150-375); Red Blood Count 3.96 M/mm3 (4.6-6.20)
[2021-02-17 08:40] LABS: Add Urine Microscopic? YES; Appearance Urine Cloudy (Clear); Bilirubin Urine Negative (Negative); Blood Urine Negative (Negative); Color Urine Yellow (Yellow); Glucose Urine UA Negative (Negative); Ketones Urine Negative (Negative); Leukocyte Esterase Ur Negative LEU/UL (NEGATIVE); Mucus Urine Rare /lpf; Nitrate Urine Negative (Negative); Protein Urine 1+ mg/dL (Negative); Specific Grav Ur 1.016 (1.001-1.035); Squamous Epithelial Cell Urine Rare /hpf (Few); WBC Urine 0-3 /hpf (0-3)
[2021-02-17 08:42] LABS: Alanine Aminotransferase 24 U/L (4-50); Albumin Level 3.4 g/dL (3.5-5.1); Alkaline Phosphatase 102 U/L (38-126); Anion Gap 3 mmol/L (8-16); Aspartate Amino Transferase 26 U/L (17-59); Bilirubin,Total 0.5 mg/dL (0.2-1.3); Blood Urea Nitrogen 16 mg/dL (9-20); Calcium 8.6 mg/dL (8.4-10.2); Carbon Dioxide 32 mmol/L (22-30); Chloride 106 mmol/L (98-107); Cholesterol 127 mg/dL (0-200); Estimated Glomerular Filt Rate > 60; Glucose 99 mg/dL (75-110); HDL Direct 42 mg/dL; Potassium 4.1 mmol/L (3.4-5.0); Sodium 141 mmol/L (137-145); Triglycerides 59 mg/dL (<150)
[2021-02-17 08:53] LABS: LDL Cholesterol Direct 69 mg/dL
[2021-02-17 09:11] LABS: Prostate Specific Antigen 1.1 ng/mL (< OR = 4.0)
[2021-02-17 09:30] LABS: Hemoglobin A1C 5.2 % (<5.7)
== END 2021-02-17 08:09 | disposition home or self-care (01) ==
PROVIDERS: PCP Family Medicine; Visit Provider Nurse Practitioner Family
DX: E78.2 Mixed hyperlipidemia (principal); I10 Essential (primary) hypertension; N40.0 Benign prostatic hyperplasia without lower urinary tract symptoms; R73.01 Impaired fasting glucose; Z12.5 Encounter for screening for malignant neoplasm of prostate
CPT/HCPCS: 36415; 80053; 80061; 81001; 83036; 84153; 84443; 85025; G0103

== ENCOUNTER 2021-03-13 11:14 | Outpatient (CLI) | payer MEDICARE, SELFPAY ==
--- NOTE | 2021-03-13 11:27 | ECG_ITS ---
Measurements Intervals [place] Rate: 71 P: [place]: 0 QRS: 73 QRSD: 94 T: 56 QT: 411 QTc: 449 Interpretive Statements ATRIAL FIBRILLATION DELAYED PRECORDIAL R/S TRANSITION LOW QRS VOLTAGE IN LIMB LEADS ABNORMAL ECG Electronically Signed On 03-13-2021 14:32:19 CDT by Chaitanya Herndon D.O.
[2021-03-13 11:55] LABS: INR 1.6; Prothrombin Time 19.5 Seconds (11.1-14.7)
[2021-03-13 11:56] LABS: Partial Thromboplastin Time 36.8 SECONDS (22.3-36.8)
== END 2021-03-13 11:15 | disposition home or self-care (01) ==
LOC: ANHSURGERY 11:18
PROVIDERS: PCP Family Medicine; Visit Provider Urology
DX: Z01.810 Encounter for preprocedural cardiovascular examination (principal); I10 Essential (primary) hypertension; C67.9 Malignant neoplasm of bladder, unspecified; R94.31 Abnormal electrocardiogram [ECG] [EKG]
CPT/HCPCS: 36415; 85610; 85730; 93005

== ENCOUNTER → 2021-03-18 01:57 | Outpatient (CLI) | payer MEDICARE, SELFPAY ==
[2021-03-19 14:52] LABS: SARS-CoV-2 RNA PCR Negative
== END ==
PROVIDERS: PCP Family Medicine; Visit Provider Urology
DX: Z01.812 Encounter for preprocedural laboratory examination (principal); Z20.822 Contact with and (suspected) exposure to COVID-19
CPT/HCPCS: C9803; U0003; U0005

== ENCOUNTER 2021-03-21 02:48 | Day surgery (SDC) | payer MEDICARE, SELFPAY ==
[2021-03-08 11:49] VITALS: BMI 27.1
--- NOTE | 2021-03-20 13:53 | WPDANESEPPF ---
Anes - Initial Pre Proc Eval Procedure: Operation Date: 03/21/21 08:30 Proposed Procedures p Cystoscopy Bladder Biopsy Fulgeration - Vinayak Smith MD s possible Trans Urethral Resection Bladder Tumor - Vinayak Smith MD Date/Time: 03/20/21 13:53 Surgeon: Vinayak Smith MD Pre Op Diagnosis: bladder cancer, microhematuria Patient Data Age: 85 Gender: M Height: 5 ft 10 in Weight: 86 kg Allergies Allergy/AdvReac Type Severity Reaction Status Date / Time sucralfate Allergy Unknown Hives Verified 03/21/21 06:33 Home Medications Medication Instructions Recorded Confirmed Type albuterol sulfate 2.5 mg INHALATION Q4-6H PRN #120 ml 09/22/19 03/08/21 Rx ranitidine HCl 150 mg capsule 150 mg PO Q12H 11/02/19 03/08/21 History calcium polycarbophil [FiberCon] 1,250 mg PO DAILY 01/05/20 03/21/21 History diltiazem HCl 120 mg capsule,24 120 mg PO DAILY 07/07/20 03/21/21 History hr,extended release rosuvastatin 10 mg tablet 10 mg PO DAILY #90 tablet 10/17/20 03/21/21 Rx montelukast 10 mg tablet 10 mg PO DAILY #90 tablet 10/31/20 03/21/21 Rx rivaroxaban 20 mg tablet 20 mg PO DAILY #30 tablet 01/04/21 03/21/21 Rx albuterol sulfate 2 puff INHALATION Q4-6H PRN 03/08/21 03/21/21 History doxazosin 4 mg PO DAILY 03/08/21 03/21/21 History furosemide 20 mg PO QAM 03/08/21 03/21/21 History fluticasone fur. 100 mcg-umeclid 1 inh INHALATION DAILY #60 each 03/09/21 Rx 62.5 mcg-vilant 25 mcg inhalat.powder Patient hx anesthesia problems: none Family hx anesthesia problems: none PMFSH Past Medical History Medical History (Updated 02/13/21 @ 15:36 by Birgit Vargas APN-C) Arthritis Asthma Atrial fibrillation Bladder cancer BPH (benign prostatic hyperplasia) Carotid stenosis Chronic obstructive pulmonary disease COPD with exacerbation Dyslipidemia Essential hypertension Moderate persistent asthma without complication Old cerebrovascular accident (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 TURBT removed 3 tumors per patient. Had cysto 2months ago by Dr Smith. History of nasal surgery x3. Two surgeries at [facility], one at [facility] [place]. Family History Family History Mother Cerebrovascular accident Father Family history of Alzheimer's disease Patient's father is Social History Social History (Updated 01/31/21 @ 13:11 by Nicole Mcdonald MA) Social History: Patient lives at home with his . He drinks about 1-2 beers per week. He smoked 1ppd cigarettes x 30 years and quit smoking in the . No substance use. His PCP is Dr Julien Dewitt. He designates his , Lashanda, as his surrogate decision maker. He wishes to be full code status, but would not wish to be kept on life support for a long period of time. Smoking packs per day: 0.2 Smoking cigarettes per day: 4.0 Years smoked: 15 Smoking pack-years: 3.00 Smoking status: Former smoker Tobacco type: cigarettes Smokeless tobacco user: chewing tobacco Smoking end date: 12/10/74 Alcohol intake: current Drinks per week: 1 Substance use: never Substance use type: does not use Living arrangements: with family Additional living arrangements comments: - LASHANDA Gender identity (if verbalized by the patient): Male Spiritual care concerns: No Agree to blood products: Yes Anes - Eval Final PreProcedure Day of Procedure 03/20/21 13:53 Patient weight: overweight Heart: irregular rhythm Lungs: clear to auscultation Airway: Mallampati scale class II Neurological: alert and oriented Last oral intake: >/= 8 hours ASA classification: III Emergent: no Anesthetic plan: procee
[2021-03-21] VITALS (9 sets, daily range): BP systolic 99–133; BP diastolic 45–71; PULSE 50–80; RESP 12–16; TEMP 36.1–36.3; O2SAT 96–100
[2021-03-21] MEDS: LACTATED RINGERS 1,000 ML 30 ML IV CONT ×2 (07:01→11:32)
[2021-03-21 07:32] LABS: INR 1.1; Prothrombin Time 14.9 Seconds (11.1-14.7)
--- NOTE | 2021-03-21 07:36 | WPDHPUPDATE1 ---
History and Physical Update Update Date/Time: 03/21/21 07:36 History and Physical has been reviewed, including an updated exam of the patient. There are NO changes in the patient's condition. Risks, benefits, and alternatives have been discussed and questions answered. Patient agrees to proceed with procedure. Proceed with cysto , bladder biopsy with fulguration, possible turbt
[2021-03-21] MEDS: LIDOCAINE HCL 2% GEL UROJET 10 ML PKG MUCOUS MEM (09:14)
--- NOTE | 2021-03-21 09:45 | PM.PROC ---
Procedure Note - Detailed Date of procedure: 03/21/21 Pre-op diagnosis: bladder cancer, microhematuria Post-op diagnosis: same Procedure performed: Cysto, urethral dilation, transurethral resection of small bladder tumor Description of procedure: Patient is taken the operative suite correctly identified. Once anesthesia was obtained he is placed in dorsal lithotomy position prepped draped usual sterile fashion. Urethra was dilated up to 26 [place]. Twenty-four [place] resectoscope sheath was inserted in the bladder. He had 2 lesions near the dome of the bladder. Each measured about 5-6 mm. Went ahead and resected these. The base was fulgurated. There was good hemostasis. Bladder was drained. 2% viscous lidocaine was inserted urethra patient is taken recovery stable condition. Patient will be discharged home call for the path results in a week's time. Anesthesia: GLMA Surgeon: Vinayak Smith MD Drains: No Packing: No Pathology: yes Complications: No immediate complications Condition: stable Disposition: PACU
--- NOTE | 2021-03-21 13:17 | SUR.PHASEII ---
[address] cadena on pt condition and requirements to go home. pt tried to void a couple of times but had only voided about 50 ml of blood tinged urine. dr cadena recommend to bladder scan and if results are <100ml pt is ok to be discharged. 1145 pt is on bag #2 of LR and has drank a couple of cups of water and coffee, has tried to void a couple of times since earlier and has no luck. i bladder scanned pt and had numerous results of <100ml. Post bladder scan pt was able to void about 75 of yellow colored urine. pt ok for discharge
== END 2021-03-21 12:25 | disposition home or self-care (01) ==
PROVIDERS: PCP Family Medicine; Visit Provider Urology
PROC: 0TBB8ZX Excision of Bladder, Via Natural or Artificial Opening Endoscopic, Diagnostic (ICD-10-PCS; CPT 52204; principal; 2021-03-21 08:30)
DX: C67.1 Malignant neoplasm of dome of bladder (principal); I48.91 Unspecified atrial fibrillation; N40.0 Benign prostatic hyperplasia without lower urinary tract symptoms; J44.9 Chronic obstructive pulmonary disease, unspecified; I10 Essential (primary) hypertension; E78.5 Hyperlipidemia, unspecified; J45.30 Mild persistent asthma, uncomplicated; G47.33 Obstructive sleep apnea (adult) (pediatric); Z86.73 Personal history of transient ischemic attack (TIA), and cerebral infarction without residual deficits; Z79.51 Long term (current) use of inhaled steroids; Z79.01 Long term (current) use of anticoagulants; Z87.891 Personal history of nicotine dependence
CPT/HCPCS: 52234; 36415; 85610; 85730; 88305; 93005; A9270; C9803; J1100; J2405; J2704; J3010; J7120; U0003; U0005

== ENCOUNTER 2021-08-16 08:41 | Outpatient (CLI) | payer MEDICARE, SELFPAY ==
[2021-08-16 09:04] LABS: Basophils Percent Auto 0.7 % (0.2-1.2); Eosinophils Absolute Auto 0.2 K/mm3 (0-0.3); Eosinophils Percent Auto 3.6 % (0-4.4); Hematocrit 38.4 % (42.0-52.0); Hemoglobin 12.7 g/dL (14.0-18.0); Immature Granulocyte Absolute 0.02 K/mm3 (0.00-0.031); Immature Granulocyte Percent A 0.4 % (0-0.5); Lymphocytes Absolute Auto 0.95 K/mm3 (0.9-3.2); Lymphocytes Percent Auto 17.8 % (18.3-44.2); Mean Corpuscular HGB Conc 33.1 g/dl (32-36); Mean Corpuscular Hemoglobin 31.8 pg (26-34); Mean Corpuscular Volume 96.2 fl (80-100); Mean Platelet Volume 9.3 fl (7.4-10.4); Monocytes Absolute Auto 0.5 K/mm3 (0.1-0.6); Monocytes Percent Auto 9.4 % (2.6-8.5); Neutrophils Absolute Auto 3.6 K/mm3 (1.3-6.7); Neutrophils Percent Auto 68.1 % (45.5-73.1); Platelet Count Result 141 k/mm3 (150-375); Red Blood Count 3.99 M/mm3 (4.6-6.20); Red Cell Distribution Width 12.7 % (11.5-14.5); White Blood Count 5.3 K/mm3 (4.5-10.0)
[2021-08-16 09:20] LABS: Alanine Aminotransferase 25 U/L (4-50); Albumin Level 3.6 g/dL (3.5-5.1); Alkaline Phosphatase 110 U/L (38-126); Anion Gap 5 mmol/L (8-16); Aspartate Amino Transferase 31 U/L (17-59); Bilirubin,Total 0.9 mg/dL (0.2-1.3); Blood Urea Nitrogen 18 mg/dL (9-20); Calcium 8.5 mg/dL (8.4-10.2); Carbon Dioxide 29 mmol/L (22-30); Chloride 105 mmol/L (98-107); Estimated Glomerular Filt Rate > 60; Glucose 100 mg/dL (65-110); Potassium 4.2 mmol/L (3.4-5.0); Sodium 139 mmol/L (137-145)
== END 2021-08-16 08:42 | disposition home or self-care (01) ==
PROVIDERS: PCP Family Medicine; Visit Provider Physician Assistant
DX: D64.9 Anemia, unspecified (principal); I10 Essential (primary) hypertension
CPT/HCPCS: 36415; 80053; 85025

== ENCOUNTER 2021-10-10 09:02 | Outpatient (CLI) | payer MEDICARE, SELFPAY ==
[2021-10-10 09:42] LABS: Basophils Percent Auto 0.6 % (0.2-1.2); Eosinophils Absolute Auto 0.2 K/mm3 (0-0.3); Eosinophils Percent Auto 4.4 % (0-4.4); Hematocrit 38.1 % (42.0-52.0); Hemoglobin 12.8 g/dL (14.0-18.0); Immature Granulocyte Absolute 0.02 K/mm3 (0.00-0.031); Immature Granulocyte Percent A 0.4 % (0-0.5); Lymphocytes Absolute Auto 1.55 K/mm3 (0.9-3.2); Lymphocytes Percent Auto 30.8 % (18.3-44.2); Mean Corpuscular HGB Conc 33.6 g/dl (32-36); Mean Corpuscular Hemoglobin 32.4 pg (26-34); Mean Corpuscular Volume 96.5 fl (80-100); Mean Platelet Volume 9.7 fl (7.4-10.4); Monocytes Absolute Auto 0.4 K/mm3 (0.1-0.6); Monocytes Percent Auto 7.5 % (2.6-8.5); Neutrophils Absolute Auto 2.8 K/mm3 (1.3-6.7); Neutrophils Percent Auto 56.3 % (45.5-73.1); Platelet Count Result 155 k/mm3 (150-375); Red Blood Count 3.95 M/mm3 (4.6-6.20); Red Cell Distribution Width 13.1 % (11.5-14.5)
== END 2021-10-10 09:03 | disposition home or self-care (01) ==
PROVIDERS: PCP Family Medicine; Visit Provider Physician Assistant
DX: D69.6 Thrombocytopenia, unspecified (principal)
CPT/HCPCS: 36415; 85025

== ENCOUNTER 2022-02-03 20:54 | Inpatient (IN) | payer MEDICARE, SELFPAY ==
[2022-02-03] VITALS (10 sets, daily range): BP systolic 106–149; BP diastolic 55–122; PULSE 105–119; RESP 16–22; O2SAT 92–100
--- NOTE | ~2022-02-03 | XR_ITS ---
EXAMINATION: XR chest 2V DATE: 02/03/2022 21:42 INDICATION: Shortness of breath. COPD. TECHNIQUE: PA and lateral views of the chest were obtained. COMPARISON: Chest radiograph dated 11/15/2019 FINDINGS: Opacities in the right lower lobe with bronchial wall thickening. No pleural effusion or pneumothorax . Cardiomegaly. There are bridging osteophytes at multiple levels in the spine, consistent with diffu se idiopathic skeletal hyperostosis (DISH). IMPRESSION: 1. Opacities in the right lower lobe with bronchial wall thickening which could be due to pulmonary e hina or bronchitis/pneumonia 2. Cardiomegaly. Reviewed, dictated and finalized at location A. IMPRESSION: 1. Opacities in the right lower lobe with bronchial wall thickening which could be due to pulmonary edema or bronchitis/pneumonia 2. Cardiomegaly.
--- NOTE | 2022-02-03 20:57 | ECG_ITS ---
Measurements Intervals [place] Rate: 103 P: [place]: 0 QRS: 104 QRSD: 91 T: 65 QT: 342 QTc: 449 Interpretive Statements ATRIAL FIBRILLATION WITH RAPID VENTRICULAR RESPONSE MARKED RIGHT AXIS DEVIATION [QRS AXIS > 100] LOW QRS VOLTAGE IN EXTREMITY LEADS [QRS DEFLECTION < 0.5 mV IN LIMB LEADS] NONSPECIFIC T-WAVE AT ABNORMAL ECG] COMPARED TO ECG 03/13/2021 11:35:49 HEART RATE INCREASED Electronically Signed On 02-04-2022 8:33:10 CDT by Derick Yoo M.D.
--- NOTE | 2022-02-03 21:11 | ED.SOB ---
HPI - SOB/Dyspnea General Chief Complaint: Shortness of Breath/Dyspnea Stated Complaint: productive cough and sob x 3 days Time Seen by Provider: 02/03/22 21:01 History of Present Illness HPI Narrative: 86-year-old male with a history of COPD presents to the emergency room with 4-day onset of shortness of breath, productive cough, and fatigue. Patient states symptoms started off with a nonproductive cough and have progressed over the last 4 days. Denies chest pain. Reports inability to take a deep satisfying breath. Denies fever Related Data Home Medications Medication Instructions Recorded Confirmed calcium polycarbophil [FiberCon] 1,250 mg PO DAILY 01/05/20 01/25/22 diltiazem HCl 120 mg capsule,24 120 mg PO DAILY 07/07/20 01/25/22 hr,extended release albuterol sulfate 2 puff INHALATION Q4-6H PRN 03/08/21 01/25/22 furosemide 20 mg PO QAM 03/08/21 01/25/22 Allergies Allergy/AdvReac Type Severity Reaction Status Date / Time sucralfate Allergy Unknown Hives Verified 01/25/22 09:49 Review of Systems Review of Systems: CONSTITUTIONAL: Denies fever, chills, or sweats. EYES: Denies visual changes, redness, or discharge. ENT: Denies rhinorrhea, congestion, sore throat, or otalgia. CARDIOVASCULAR: Denies chest pain, palpitations, or edema. RESPIRATORY: Reports productive cough and dyspnea GASTROINTESTINAL: Denies abdominal pain, nausea, vomiting, or diarrhea. GENITOURINARY: Denies dysuria or hematuria. SKIN: Denies rash or itching. MUSCULOSKELETAL: Denies back pain, joint pain, or myalgia. NEUROLOGIC: Denies headache, numbness, dizziness, or weakness. PSYCHIATRIC: Denies anxiety or depression. [facility] Past Medical History Medical History (Updated 02/03/22 @ 22:39 by Riaz Moeller, MENTAL HEALTH DIRECTOR) Arthritis Asthma Atrial fibrillation Bladder cancer BPH (benign prostatic hyperplasia) Carotid stenosis Chronic obstructive pulmonary disease COPD with exacerbation Dyslipidemia Essential hypertension Moderate persistent asthma without complication Old cerebrovascular accident (CVA) without late effect EROS (obstructive sleep apnea) Pneumonia of both lungs due to infectious organism Surgical History Surgical History (Updated 02/03/22 @ 23:00 by Yenni Vides NP) Cataract extraction status H/O transurethral destruction of bladder lesion Follows with Dr Smith. TURBT removed 3 tumors per patient. Had cysto 2months ago by Dr Smith. History of nasal surgery x3. Two surgeries at [facility], one at [facility]. Family History Family History Mother Cerebrovascular accident Father Family history of Alzheimer's disease Patient's father is Social History Social History Social History: Patient lives at home with his . He drinks about 1-2 beers per week. He smoked 1ppd cigarettes x 30 years and quit smoking in the . No substance use. His PCP is Dr Julien Dewitt. He designates his , Lashanda, as his surrogate decision maker. He wishes to be full code status, but would not wish to be kept on life support for a long period of time. Smoking packs per day: 0.2 Smoking cigarettes per day: 4.0 Years smoked: 15 Smoking pack-years: 3.00 Tobacco type: cigarettes Smokeless tobacco user: chewing tobacco Smoking end date: 12/10/74 Alcohol intake: current Drinks per week: 1 Substance use: never Substance use type: does not use Additional living arrangements comments: - LASHANDA Gender identity (if verbalized by the patient): Male Spiritual care concerns: No Agree to blood products: Yes Exam Narrative: GENERAL: Well-appearing, well-nourished, and in mild respiratory acute distress. HEAD: Normocephalic, atraumatic. EYES: PERRLA and EOMI. ENT: Nares clear, no rhinorrhea or epistaxis. Mucous membranes moist. NECK: Supple. No adenopathy or ma
[2022-02-03 21:27] LABS: Basophils Percent Auto 0.2 % (0.2-1.2); Eosinophils Absolute Auto 0.1 K/mm3 (0-0.3); Eosinophils Percent Auto 0.7 % (0-4.4); Hematocrit 40.5 % (42.0-52.0); Hemoglobin 13.3 g/dL (14.0-18.0); Immature Granulocyte Absolute 0.05 K/mm3 (0.00-0.031); Immature Granulocyte Percent A 0.4 % (0-0.5); Lymphocytes Absolute Auto 0.73 K/mm3 (0.9-3.2); Lymphocytes Percent Auto 6.4 % (18.3-44.2); Mean Corpuscular HGB Conc 32.8 g/dl (32-36); Mean Corpuscular Hemoglobin 31.8 pg (26-34); Mean Corpuscular Volume 96.9 fl (80-100); Mean Platelet Volume 9.8 fl (7.4-10.4); Monocytes Absolute Auto 0.6 K/mm3 (0.1-0.6); Monocytes Percent Auto 5.6 % (2.6-8.5); Neutrophils Absolute Auto 9.9 K/mm3 (1.3-6.7); Neutrophils Percent Auto 86.7 % (45.5-73.1); Platelet Count Result 152 k/mm3 (150-375); Red Blood Count 4.18 M/mm3 (4.6-6.20); Red Cell Distribution Width 13.1 % (11.5-14.5); White Blood Count 11.5 K/mm3 (4.5-10.0)
[2022-02-03] MEDS: ALBUTEROL SULFATE NEB 2.5 MG/0.5 ML INH 5 MG INHALATION (21:27)
[2022-02-03] MEDS: IPRATROPIUM BR 0.02% INH SOLN 0.5 MG/2.5 ML VIAL INHALATION (21:27)
[2022-02-03 21:35] LABS: Alanine Aminotransferase 21 U/L (4-50); Albumin Level 3.8 g/dL (3.5-5.1); Alkaline Phosphatase 116 U/L (38-126); Anion Gap 4 mmol/L (8-16); Aspartate Amino Transferase 26 U/L (17-59); Bilirubin,Total 1.4 mg/dL (0.2-1.3); Blood Urea Nitrogen 17 mg/dL (9-20); Calcium 8.4 mg/dL (8.4-10.2); Carbon Dioxide 28 mmol/L (22-30); Chloride 103 mmol/L (98-107); Estimated CRCL calculation 54 ml/min; Estimated Glomerular Filt Rate > 60; Glucose 120 mg/dL (65-110); Potassium 4.6 mmol/L (3.4-5.0); Sodium 135 mmol/L (137-145)
[2022-02-03 21:42] LABS: Lactic Acid Reflex 0.8 mmol/L (0.7-2.1)
[2022-02-03 21:47] LABS: Troponin I < 0.012 ng/mL (0.000-0.034)
--- NOTE | 2022-02-03 21:48 | PC.NURSE ---
pt placed on 2L nasal cannula per [place].
[2022-02-03 21:53] LABS: D Dimer 0.27 ug/mL (<0.48)
[2022-02-03 22:11] LABS: NT Pro B Type Natriuretic Pept 1840 pg/mL (5-100)
[2022-02-03] MEDS: dilTIAZem HCl INJ 25 MG/5 ML VIAL 10 MG IV PUSH (22:21)
[2022-02-03] MEDS: FUROSEMIDE INJ 40 MG/4 ML VIAL 20 MG IV PUSH (22:21)
[2022-02-03] MEDS: ONDANSETRON INJ 4 MG/2 ML VIAL IV PUSH (22:27)
[2022-02-03 22:29] LABS: Influenza A QL RT-PCR Negative (Negative); Influenza B QL RT-PCR Negative (Negative); SARS-CoV-2 RNA PCR Negative
--- NOTE | 2022-02-03 22:51 | PM.IMHP ---
H&P: HPI History of Present Illness Date/Time: 02/03/22 22:51 this is an 86-year-old male patient who has a history of obstructive sleep apnea as well as CHF. The patient stated that he has been coughing on and off for approximately 3-4 days. The patient stated that his sputum is mostly clear but occasionally coughs up yellow to green sputum. The patient has been using his nebulizer machine at home without much relief. The patient also stated that he only takes his Lasix every other day because it makes him urinate so much and he is up urinating quite frequently at night. He does have a history of bladder cancer with history of TURP and BPH. The patient stated he does not want to take the diuretic that often as he is constantly urinating. The patient also has sleep apnea and does not use his device. 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 He does see an oncologist at [facility] and the patient stated that he was cleared to return back in 1 year. He has a urologist Dr. Smith for the bladder cancer. The patient's he felt nauseated this morning and did not take his medication. He thinks that maybe the drainage has caused him to feel nauseated. He had not taken heel is Cardizem or Xarelto today. The patient went into AFib RVR in the emergency room and he was given 10 mg of IV push Cardizem. The patient was placed on oxygen at 2 L per nasal cannula and does not chronically wear oxygen at home and does not even have any supply source for oxygen at home. The patient stated he was having difficulty taking full deep breaths. The patient was given Zofran, Lasix, Cardizem and dual neb treatments in the emergency room. His white count is noted to be 11.5. His H&H is 13.3 and 40.5 which is his baseline. BNP is noted to be 1840. Troponin is negative. Awaiting chest x-ray read but appears to be pulmonary edema. The patient is negative for influenza A/B and COVID. The patient is being admitted to inpatient services on the date of service of 02/03/2022. Chief Complaint: Shortness of breath Review of Systems Review of Systems: All systems reviewed & are unremarkable except as noted in HPI and below Constitutional: Constitutional: Reports as per HPI and Reports no additional constitutional complaints Eyes: Eyes: Reports as per HPI and Reports no additional eye complaints ENT: Reports system reviewed and no additional complaints, except as documented and Reports Normal hearing present Cardiovascular: Cardiovascular: Reports no additional cardiovascular complaints Respiratory: Respiratory: Reports no additional respiratory complaints and Reports no additional respiratory complaints Gastrointestinal: Gastrointestinal: Reports as per HPI and Reports no additional gastrointestinal complaints Musculoskeletal: Musculoskeletal: Reports no additional musculoskeletal complaints Integumentary/Breasts: Skin/Breast: Reports system reviewed and no additional complaints, except as docu and Reports as per HPI Neurologic: Reports system reviewed and no additional complaints, except as documented, Reports as per HPI and Reports Normal hearing present Psychiatric: Psychiatric: Reports no additional psychiatric complaints and Reports as per HPI Endocrine: Endocrine: Reports no additional endocrine complaints Hematologic/Lymphatic: Hematologic/Lymphatic: Reports no additional hematologic/lymphatic complaints Allergic/Immunologic: Allergic/Immunologic: Reports no additional allergic/immunologic complaints PMFSH Past Medical History Medical History Arthritis Asthma Atrial fibrillation Bladder cancer BPH (benign prostatic hyperplasia) Carotid stenosis Chronic obstructive pulmonary disease COPD with exacerbation Dyslipidemia Essential hypertension Moderate persistent asthma without complication Old cerebrovascular accident (CVA) without late effect EROS (obstructive sleep apnea) Pneumonia of both law
[2022-02-04] VITALS (14 sets, daily range): BP systolic 96–126; BP diastolic 43–73; PULSE 66–118; RESP 15–20; TEMP 36.7–37.9; O2SAT 92–97; BMI 26.4
[2022-02-04] MEDS: DIGOXIN INJ 250 MCG/ML 2 ML AMP (*BKC) IV PUSH (00:17)
[2022-02-04] MEDS: METOCLOPRAMIDE HCL INJ 10 MG/2 ML VIAL IV PUSH (00:17)
[2022-02-04] MEDS: RIVAROXABAN 20 MG TABLET PO ×2 (01:03→16:29)
--- NOTE | 2022-02-04 02:31 | PC.NURSE ---
This patient, Edmundo English, was admitted to IMU Room 206-02. Patient/family oriented to hospital policies and general routines including ID bracelet, bed and alarms, visiting hours, pain management, procedures, bathroom and other care routines, personal items, smoking policy, room service/diet, and visiting hours. Information on how to activate the Rapid Response Team has been discussed. Patient/Family are encouraged to report perceived risks to care and to ask questions if they do not understand what they are told or what they should do.
[2022-02-04] MEDS: ACETAMINOPHEN 325 MG TABLET 650 MG PO (05:01)
[2022-02-04 05:13] LABS: Basophils Percent Auto 0.2 % (0.2-1.2); Eosinophils Percent Auto 0.1 % (0-4.4); Hematocrit 37.6 % (42.0-52.0); Hemoglobin 12.8 g/dL (14.0-18.0); Immature Granulocyte Absolute 0.03 K/mm3 (0.00-0.031); Immature Granulocyte Percent A 0.3 % (0-0.5); Lymphocytes Absolute Auto 0.91 K/mm3 (0.9-3.2); Mean Corpuscular Hemoglobin 32.2 pg (26-34); Mean Corpuscular Volume 94.5 fl (80-100); Mean Platelet Volume 9.9 fl (7.4-10.4); Monocytes Absolute Auto 0.7 K/mm3 (0.1-0.6); Neutrophils Absolute Auto 8.5 K/mm3 (1.3-6.7); Neutrophils Percent Auto 83.4 % (45.5-73.1); Platelet Count Result 147 k/mm3 (150-375); Red Blood Count 3.98 M/mm3 (4.6-6.20); White Blood Count 10.2 K/mm3 (4.5-10.0)
[2022-02-04 05:26] LABS: Alanine Aminotransferase 18 U/L (4-50); Albumin Level 3.5 g/dL (3.5-5.1); Alkaline Phosphatase 96 U/L (38-126); Anion Gap 4 mmol/L (8-16); Aspartate Amino Transferase 22 U/L (17-59); Bilirubin,Total 1.3 mg/dL (0.2-1.3); Blood Urea Nitrogen 18 mg/dL (9-20); CRP 5.6 mg/dL (<1.0); Calcium 8.2 mg/dL (8.4-10.2); Carbon Dioxide 29 mmol/L (22-30); Chloride 101 mmol/L (98-107); Estimated CRCL calculation 54 ml/min; Estimated Glomerular Filt Rate > 60; Glucose 108 mg/dL (65-110); Lactate Dehydrogenase 373 U/L (313-618); Sodium 134 mmol/L (137-145)
[2022-02-04 05:36] LABS: D Dimer 0.36 ug/mL (<0.48)
[2022-02-04] MEDS: FUROSEMIDE INJ 40 MG/4 ML VIAL 20 MG IV PUSH (08:24)
[2022-02-04] MEDS: DOXAZOSIN MESYLATE 4 MG TABLET PO (08:25)
[2022-02-04] MEDS: ROSUVASTATIN 10 MG TABLET BY MOUTH (08:25)
[2022-02-04] MEDS: FLUTICASONE/UMECLIDIN/VILANTER 100-62.5-25 MCG ELLIPTA 1 PUFF INHALATION (08:41)
--- NOTE | 2022-02-04 15:17 | PM.IMPN ---
Progress Note: A&P Assessment and Plan (1) CHF (congestive heart failure): Qualifiers: Heart failure chronicity: acute Heart failure type: unspecified Qualified Code(s): I50.9 - Heart failure, unspecified Code(s): I50.9 - Heart failure, unspecified Status: Acute Assessment and Plan: Pt bp running low after IV lasix yesterday watch Bps carefully, await echo result (2) Increasing shortness of breath: Code(s): R06.02 - Shortness of breath Status: Acute Assessment and Plan: Patient is currently on oxygen at 2 L per nasal cannula. The patient stated that he does have some lung nodules but they are staying the same size and they have been monitored outpatient. He also has COPD and does not wear any oxygen at home. continue iv abx, iv steroids and nebulisers (3) EROS (obstructive sleep apnea): Code(s): G47.33 - Obstructive sleep apnea (adult) (pediatric) Status: Acute Assessment and Plan: The patient stated that he did have a dental apparatus but it is broken. I explained to the patient that Familia dougherty her with pulmonology suggested that the patient have his obstructive sleep apnea under control. CPAP ordered for overnite use (4) Essential hypertension: Code(s): I10 - Essential (primary) hypertension Status: Acute Assessment and Plan: Patient's blood pressure is slightly low today. hold bp meds continue cardizem (5) Dyslipidemia: Code(s): E78.5 - Hyperlipidemia, unspecified Status: Acute Assessment and Plan: Continue with rosuvastatin monitor liver enzymes. (6) Atrial fibrillation: Qualifiers: Atrial fibrillation type: longstanding persistent Qualified Code(s): I48.11 - Longstanding persistent atrial fibrillation Code(s): I48.91 - Unspecified atrial fibrillation Status: Acute Assessment and Plan: continue Cardizem and beta solis in the am (7) Bladder cancer: Code(s): C67.9 - Malignant neoplasm of bladder, unspecified Status: Acute Assessment and Plan: The patient is on under the care of [facility]. The patient told me that he is not due to follow-up until next year with the [facility]. He does see Dr. Smith for his bladder cancer. (8) BPH (benign prostatic hyperplasia): Qualifiers: Lower urinary tract symptom presence: unspecified whether lower urinary tract symptoms present Qualified Code(s): N40.0 - Benign prostatic hyperplasia without lower urinary tract symptoms Code(s): N40.0 - Benign prostatic hyperplasia without lower urinary tract symptoms Status: Acute Assessment and Plan: Continue with home medication of doxazosin. (9) Nodule of right lung: Code(s): R91.1 - Solitary pulmonary nodule Status: Acute Assessment and Plan: Patient stated that he has several pulmonary nodules and this is being monitored outpatient. The patient stated that they are still the same size and are not growing. (10) COPD with exacerbation: Code(s): J44.1 - Chronic obstructive pulmonary disease with (acute) exacerbation Status: Acute Assessment and Plan: Continue Singulair. switch inhalers to nebulisers Subjective Date/time seen: 02/04/22 15:17 Interval history: 86-year-old male patient who has a history of obstructive sleep apnea as well as CHF. The patient stated that he has been coughing on and off for approximately 3-4 days. The patient stated that his sputum is mostly clear but occasionally coughs up yellow to green sputum. PT has history of copd, chf, af and bladder cancer. Today Bps are running low, continue to watch. Pt continues to be sob on 1 liter of oxygen Review of Systems Review of Systems: All systems reviewed & are unremarkable except as noted in HPI and below Exam Const: General: cooperative; No in distress Orientation/consciousness: oriented to person HENMT: Head: normal
[2022-02-04] MEDS: methylPREDNISolone SOD SUCC 40 MG VIAL 20 MG IV PUSH (16:31)
--- NOTE | 2022-02-04 17:20 | PC.NURSE ---
This patient, Edmundo English, was transferred to [[facility]- ] on 02/04/22 at 1720. Personal belongings sent with patient. Report given to [Noris ]. Appropriate documentation sent with patient.
[2022-02-05] VITALS (10 sets, daily range): BP systolic 120–133; BP diastolic 50–63; PULSE 78–102; RESP 17–20; TEMP 35.8–36.6; O2SAT 93–99
--- NOTE | 2022-02-05 | ECHO_ITS ---
Patient Info Name: Edmundo English Age: 86 years : 1935 Gender: Male Ht: 70 in Wt: 190 lbs BSA: 2.08 m2 HR: 82 bpm BP: 133 / 50 mmHg Technical Quality: Good Exam Date: 02/05/2022 11:55 AM Exam Location: [facility] Pulmonary Patient Status: Inpatient Admit Date: 02/03/2022 Staff Ordering Physician: Yenni Vides NP Flight Engineer Helicopter: Cassie Colón RDCS Attending Provider: Tita Ayala DO Referring Physician: Mahogany GREGORY; Exam Type: CA echo doppler color flow Study Info Indications - PULMONARY EDEMA Complete two-dimensional, color flow and Doppler transthoracic echocardiogram is performed. Summary 1. Complete two-dimensional, color flow and Doppler transthoracic echocardiogram is performed. 2. Left ventricular chamber dimension is normal. 3. Left ventricular systolic function is normal, estimated at 60-65%. 4. There is moderately increased left ventricular wall thickness. 5. The left ventricular diastolic function is normal. 6. E/e' 9 is minimally elevated. 7. Global longitudinal strain is normal at -17.3%. 8. Left atrial chamber dimension is moderately enlarged. 9. Right atrial chamber dimension is moderately enlarged. 10. The mitral valve has mildly calcified annulus. 11. There is mild mitral valve regurgitation. 12. There is mild tricuspid valve regurgitation. 13. No pulmonary hypertension, estimated pulmonary arterial systolic pressure is 38 mmHg. 14. There is small circumferential pericardial effusion. No cardiac tamponade. Left Ventricle E/e' 9 is minimally elevated. Global longitudinal strain is normal at -17.3%. Left ventricular chamber dimension is normal. Left ventricular systolic function is normal, estimated at 60-65%. There is moderately increased left ventricular wall thickness. The left ventricular diastolic function is normal. Right Ventricle Right ventricular systolic function is normal and with normal TAPSE 2.1 cm. Right ventricular chamber dimension is normal. Left Atria Left atrial chamber dimension is moderately enlarged. Right Atria Right atrial chamber dimension is moderately enlarged. Aortic Valve The aortic valve is trileaflet. There is no aortic valve stenosis. There is no aortic valve regurgitation. Pulmonic Valve There is no pulmonic regurgitation. Mitral Valve The mitral valve has mildly calcified annulus. There is no mitral valve stenosis. There is mild mitral valve regurgitation. Tricuspid Valve There is mild tricuspid valve regurgitation. No pulmonary hypertension, estimated pulmonary arterial systolic pressure is 38 mmHg. Pericardium/Pleural There is small circumferential pericardial effusion. No cardiac tamponade. Inferior Vena Cava Dilated inferior vena cava with >50% collapse upon inspiration consistent with normal right atrial pressure, 5 mmHg. Aorta The aortic root size at the sinus of Valsalva is normal. Left Ventricular Outflow Tract Name Value Normal LVOT 2D LVOT Diameter 2.0 cm LVOT Doppler LVOT Peak Gradient 4 mmHg LVOT Mean Gradient 2 mmHg
[2022-02-05] MEDS: DOXAZOSIN MESYLATE 4 MG TABLET PO (09:33)
[2022-02-05] MEDS: ROSUVASTATIN 10 MG TABLET BY MOUTH (09:34)
[2022-02-05] MEDS: FLUTICASONE/UMECLIDIN/VILANTER 100-62.5-25 MCG ELLIPTA 1 PUFF INHALATION (09:45)
--- NOTE | 2022-02-05 14:04 | PM.IMPN ---
Progress Note: A&P Assessment and Plan (1) Acute hypoxemic respiratory failure: Code(s): J96.01 - Acute respiratory failure with hypoxia Status: Acute Assessment and Plan: Elevated BNP on admission. CXR w/ congestion and PNA. Echo w/ EF 55-60% and biatrial enlargement. BCX with no growth so far and sputum culture pending. Of note patient with wheezing on exam concerning for COPD exacerbation caused by PNA. -Continue ceftriaxone and azithromycin -Start prednisone 40 mg po daily -Furosemide 20 mg IV x 1 (2) CHF (congestive heart failure): Qualifiers: Heart failure chronicity: acute Heart failure type: unspecified Qualified Code(s): I50.9 - Heart failure, unspecified Code(s): I50.9 - Heart failure, unspecified Status: Acute Assessment and Plan: Furosemide held due to low BP yesterday. BNP elevated on admission. Will give on dose of furosemide 20 mg IV today. (3) Increasing shortness of breath: Code(s): R06.02 - Shortness of breath Status: Acute Assessment and Plan: Will continue gentle diuresis, treatment for PNA and COPD exacerbation. Will wean oxygen as tolerated. Goal oxygen saturation > 88%. (4) EROS (obstructive sleep apnea): Code(s): G47.33 - Obstructive sleep apnea (adult) (pediatric) Status: Acute Assessment and Plan: CPAP for overnight use. (5) Essential hypertension: Code(s): I10 - Essential (primary) hypertension Status: Acute Assessment and Plan: Will give BP meds as tolerated with gentle diuresis. (6) Dyslipidemia: Code(s): E78.5 - Hyperlipidemia, unspecified Status: Acute Assessment and Plan: Continue with rosuvastatin monitor liver enzymes. (7) Atrial fibrillation: Qualifiers: Atrial fibrillation type: longstanding persistent Qualified Code(s): I48.11 - Longstanding persistent atrial fibrillation Code(s): I48.91 - Unspecified atrial fibrillation Status: Acute Assessment and Plan: continue Cardizem and beta solis as tolerated. Continue xaralto. (8) Bladder cancer: Code(s): C67.9 - Malignant neoplasm of bladder, unspecified Status: Acute Assessment and Plan: The patient is on under the care of [facility]. The patient told me that he is not due to follow-up until next year with the [facility]. He does see Dr. Smith for his bladder cancer. (9) BPH (benign prostatic hyperplasia): Qualifiers: Lower urinary tract symptom presence: unspecified whether lower urinary tract symptoms present Qualified Code(s): N40.0 - Benign prostatic hyperplasia without lower urinary tract symptoms Code(s): N40.0 - Benign prostatic hyperplasia without lower urinary tract symptoms Status: Acute Assessment and Plan: Continue with home medication of doxazosin. (10) Nodule of right lung: Code(s): R91.1 - Solitary pulmonary nodule Status: Acute Assessment and Plan: Patient stated that he has several pulmonary nodules and this is being monitored outpatient. The patient stated that they are still the same size and are not growing. (11) COPD with exacerbation: Code(s): J44.1 - Chronic obstructive pulmonary disease with (acute) exacerbation Status: Acute Assessment and Plan: Continue Singulair. switch inhalers to nebulisers Subjective Date/time seen: Date of Service 02/05/22 1300 Patient says his breathing feels better but he is still requiring oxygen. says for some time he has been short of breath with exertion having to frequently rest to catch his breath. says she has discussed him being evaluated for home oxygen use in the past but the patient declined. Previous smoker with known COPD on multiple inhalers at home. Patient says he has lost his albuterol inhaler and needs a replacement. Review of Systems Respiratory: Respiratory: Reports
[2022-02-05] MEDS: ALBUTEROL SULFATE NEB 2.5 MG/0.5 ML INH INHALATION ×2 (16:19→20:28)
[2022-02-05] MEDS: FUROSEMIDE INJ 40 MG/4 ML VIAL 20 MG IV PUSH (17:54)
[2022-02-05] MEDS: RIVAROXABAN 20 MG TABLET PO (17:55)
[2022-02-05] MEDS: predniSONE 20 MG TABLET 40 MG PO (17:55)
[2022-02-06] VITALS (8 sets, daily range): BP systolic 109–110; BP diastolic 46–73; PULSE 9–94; RESP 18–20; TEMP 36.4; O2SAT 97–99
[2022-02-06] MEDS: ACETAMINOPHEN 325 MG TABLET 650 MG PO (03:05)
[2022-02-06] MEDS: ALBUTEROL SULFATE NEB 2.5 MG/0.5 ML INH INHALATION ×3 (04:34→12:55)
[2022-02-06 05:46] LABS: Basophils Percent Auto 0.1 % (0.2-1.2); Hematocrit 38.4 % (42.0-52.0); Hemoglobin 12.7 g/dL (14.0-18.0); Immature Granulocyte Absolute 0.03 K/mm3 (0.00-0.031); Immature Granulocyte Percent A 0.3 % (0-0.5); Lymphocytes Absolute Auto 0.71 K/mm3 (0.9-3.2); Mean Corpuscular HGB Conc 33.1 g/dl (32-36); Mean Corpuscular Hemoglobin 31.8 pg (26-34); Mean Corpuscular Volume 96.2 fl (80-100); Monocytes Absolute Auto 0.3 K/mm3 (0.1-0.6); Monocytes Percent Auto 2.9 % (2.6-8.5); Neutrophils Absolute Auto 7.9 K/mm3 (1.3-6.7); Neutrophils Percent Auto 88.7 % (45.5-73.1); Platelet Count Result 151 k/mm3 (150-375); Red Blood Count 3.99 M/mm3 (4.6-6.20); Red Cell Distribution Width 12.5 % (11.5-14.5); White Blood Count 8.9 K/mm3 (4.5-10.0)
[2022-02-06 06:02] LABS: Anion Gap 5 mmol/L (8-16); Blood Urea Nitrogen 29 mg/dL (9-20); Carbon Dioxide 29 mmol/L (22-30); Chloride 99 mmol/L (98-107); Estimated CRCL calculation 54 ml/min; Estimated Glomerular Filt Rate > 60; Glucose 166 mg/dL (65-110); Potassium 4.1 mmol/L (3.4-5.0); Sodium 133 mmol/L (137-145)
--- NOTE | 2022-02-06 08:02 | WPDCDIQUERY2 ---
CDI Query Clarification Request -02/03 Hospitalist documented: Assessment and plan (1) CHF (congestive heart failure): Qualifiers: Heart failure chronicity: acute Heart failure type: unspecified Qualified Code(s): I50.9 - Heart failure, unspecified Code(s): I50.9 - Heart failure, unspecified Status: Acute Assessment and Plan: Patient stated that he has only been taking the Lasix every other day. I did order for him to have IV Lasix daily. The patient stated that he is not taking his Lasix every day because it makes him urinate so frequently. I did order an echo. - 02/04 CXR completed IMPRESSION: 1. Opacities in the right lower lobe with bronchial wall thickening which could be due to pulmonary edema or bronchitis/pneumonia 2. Cardiomegaly. For coding purposes, can you please clarify if Congestive Heart Failure is: Acute Chronic Acute on Chronic Other Unable to determine Systolic Diastolic Combined Other Unable to determine <Yessica Capellan - Last Filed: 02/06/22 08:10> Provider Comments Acute on Chronic Diastolic Heart Failure <Zakiya Leach MD - Last Filed: 02/28/22 11:19>
[2022-02-06] MEDS: predniSONE 20 MG TABLET 40 MG PO (08:39)
[2022-02-06] MEDS: ROSUVASTATIN 10 MG TABLET BY MOUTH (08:39)
[2022-02-06] MEDS: DOXAZOSIN MESYLATE 4 MG TABLET PO (08:39)
[2022-02-06] MEDS: FLUTICASONE/UMECLIDIN/VILANTER 100-62.5-25 MCG ELLIPTA 1 PUFF INHALATION (12:55)
--- NOTE | 2022-02-06 17:18 | PM.DS ---
DS: Admitting Diagnosis Discharge Date 02/06/2022 Admitting Diagnosis Hypoxia DS: Discharge Diagnosis Discharge Diagnosis (1) Acute hypoxemic respiratory failure: Code(s): J96.01 - Acute respiratory failure with hypoxia Status: Acute Assessment and Plan: Elevated BNP on admission. CXR w/ congestion and PNA. Echo w/ EF 55-60% and biatrial enlargement. BCX with no growth so far and sputum culture with normal lower respiratory tract lili so far. Wheezing resolved after treatment with albuterol schedule yesterday. Clinically improved with adequate oxygen saturation on room air. -Azithromycin completed 3rd dose 02/05 -Discharge with cefuroxime 500 mg BID x 4 days for a total of 7 days treatment for Pneumonia -Prednisone 40 mg po x 4 more days -Restart home furosemide every other day dosing (2) CHF (congestive heart failure): Qualifiers: Heart failure chronicity: acute Heart failure type: unspecified Qualified Code(s): I50.9 - Heart failure, unspecified Code(s): I50.9 - Heart failure, unspecified Status: Acute Assessment and Plan: Appears euvolemic. Will discharge with home furosemide 20 every other day (3) Increasing shortness of breath: Code(s): R06.02 - Shortness of breath Status: Acute Assessment and Plan: Now on room air with adequate oxygenation. Will complete treatment for pneumonia and continue albuterol inhaler 2 puffs q4hWA for the next 3 days plus prednisone for COPD exacerbation. (4) EROS (obstructive sleep apnea): Code(s): G47.33 - Obstructive sleep apnea (adult) (pediatric) Status: Acute Assessment and Plan: Used autotitrating CPAP machine while inpatient. (5) Essential hypertension: Code(s): I10 - Essential (primary) hypertension Status: Acute Assessment and Plan: Resume home BP medications for discharge. (6) Dyslipidemia: Code(s): E78.5 - Hyperlipidemia, unspecified Status: Acute Assessment and Plan: Continue with rosuvastatin for discharge. (7) Atrial fibrillation: Qualifiers: Atrial fibrillation type: longstanding persistent Qualified Code(s): I48.11 - Longstanding persistent atrial fibrillation Code(s): I48.91 - Unspecified atrial fibrillation Status: Acute Assessment and Plan: Xaralto, BB and cardizem for discharge. (8) Bladder cancer: Code(s): C67.9 - Malignant neoplasm of bladder, unspecified Status: Acute Assessment and Plan: The patient is on under the care of [facility]. The patient told me that he is not due to follow-up until next year with the [facility]. He does see Dr. Smith for his bladder cancer. (9) BPH (benign prostatic hyperplasia): Qualifiers: Lower urinary tract symptom presence: unspecified whether lower urinary tract symptoms present Qualified Code(s): N40.0 - Benign prostatic hyperplasia without lower urinary tract symptoms Code(s): N40.0 - Benign prostatic hyperplasia without lower urinary tract symptoms Status: Acute Assessment and Plan: Continue with home medication of doxazosin. (10) Nodule of right lung: Code(s): R91.1 - Solitary pulmonary nodule Status: Acute Assessment and Plan: Patient stated that he has several pulmonary nodules and this is being monitored outpatient. The patient stated that they are still the same size and are not growing. (11) COPD with exacerbation: Code(s): J44.1 - Chronic obstructive pulmonary disease with (acute) exacerbation Status: Acute Assessment and Plan: See treatment as noted above. DS: Summary Hospital Course Hospital Course: Patient admitted to the hospital with acute hypoxemic respiratory failure due to pneumonia causing COPD exacerbation and volume overload. Patient required 2LNC to maintain adequate oxygen saturation on admission. Echo showed EF 60-65
== END 2022-02-06 17:51 | disposition home or self-care (01) | DRG 193 ==
LOC: ANHED 22:39 → ANHIMU 23:11 → ANH3MEDSUR 02-05 10:47 → ANHIMU 02-07 09:51
PROVIDERS: Emergency Medicine; Nurse Practitioner; Admitting Provider Internal Medicine; Emergency Provider Nurse Practitioner Family; PCP Family Medicine; Visit Provider Family Medicine
DX: J18.9 Pneumonia, unspecified organism (principal); J96.01 Acute respiratory failure with hypoxia; I50.33 Acute on chronic diastolic (congestive) heart failure; J44.1 Chronic obstructive pulmonary disease with (acute) exacerbation; J44.0 Chronic obstructive pulmonary disease with (acute) lower respiratory infection; I48.11 Longstanding persistent atrial fibrillation; I11.0 Hypertensive heart disease with heart failure; G47.33 Obstructive sleep apnea (adult) (pediatric); E78.5 Hyperlipidemia, unspecified; Z20.822 Contact with and (suspected) exposure to COVID-19; C67.9 Malignant neoplasm of bladder, unspecified; R91.8 Other nonspecific abnormal finding of lung field; N40.0 Benign prostatic hyperplasia without lower urinary tract symptoms; M19.90 Unspecified osteoarthritis, unspecified site; Z86.73 Personal history of transient ischemic attack (TIA), and cerebral infarction without residual deficits; Z87.891 Personal history of nicotine dependence
CPT/HCPCS: 36415; 71046; 80048; 80053; 82728; 83605; 83615; 83735; 83880; 84443; 84484; 85025; 85380; 86140; 87040; 87070; 87205; 87502; 93005; 93306; 94640; 96374; 96375; 99285; A9270; C9803; J0456; J0696; J1160; J1940; J2405; J2765; J2920; J7512; U0003; U0005

== ENCOUNTER 2022-05-09 12:34 | Emergency (ER) | payer MEDICARE, SELFPAY ==
--- NOTE | ~2022-05-09 | XR_ITS ---
EXAMINATION: XR chest 2V Exam Date/Time: 05/09/2022 17:50 CDT HISTORY: RIGHT BACK PAIN, COPD Comparison: 02/03/2022. RESULT: Lines, tubes, and devices: None. Lungs and pleura: Reticulonodular opacities in the right anterior lower lung. Bibasilar scar/atelect asis. Emphysematous change. Cardiomediastinal silhouette: Stable cardiomediastinal silhouette. Other: No acute osseous or upper abdominal finding. IMPRESSION: Small focus of likely bronchiolitis in the anterior right lower lung. Emphysematous change. Reviewed, dictated and finalized at location K. IMPRESSION: Small focus of likely bronchiolitis in the anterior right lower lung. Emphysema tous change.
[2022-05-09 12:50] VITALS: BP 130/105; PULSE 103; RESP 18; TEMP 36.6; O2SAT 100
[2022-05-09 17:37] VITALS: PULSE 83; RESP 22; O2SAT 98
[2022-05-09 17:39] VITALS: BP 132/71; PULSE 84; PULSE 86; RESP 16; RESP 20; TEMP 36.8; O2SAT 100
[2022-05-09 17:45] VITALS: PULSE 79; RESP 14; O2SAT 98
[2022-05-09 17:46] VITALS: BP 123/68; PULSE 84; RESP 16; O2SAT 97
--- NOTE | 2022-05-09 18:28 | ED.BACK ---
HPI - Back Pain/Injury General Chief Complaint: Back Pain/Injury Stated Complaint: back pain Time Seen by Provider: 05/09/22 18:03 Source: patient History of Present Illness HPI Narrative: Patient presents with right-sided back pain. Reports that pain for the past few days is a achy constant with intermittent exacerbations with movement of his torso and upper extremities. His pain does occasionally radiate out his right arm denies any chest pain or shortness of breath denies any lightheadedness dizziness falls or recent trauma. He does report he is been working outside pulling weeds on his hands and knees over the past few days is unsure if that is a contributing factor. Patient does have a history of COPD and was concerned that his pain represent a lung issue. He has been taking ibuprofen at home with alleviation of his symptoms. Related Data Home Medications Medication Instructions Recorded Confirmed diltiazem HCl 120 mg capsule,24 120 mg PO DAILY 07/07/20 02/04/22 hr,extended release furosemide 20 mg tablet 20 mg PO EVERY OTHER DAY 03/08/21 02/04/22 psyllium husk (with sugar) 3 1 tbsp PO DAILY 02/04/22 02/04/22 gram/7 gram oral powder (Daily Fiber (psyllium-sucrose)) Allergies Allergy/AdvReac Type Severity Reaction Status Date / Time sucralfate Allergy Unknown Hives Verified 05/09/22 12:53 Review of Systems Review of Systems: CONSTITUTIONAL: Denies fever, chills, or sweats. EYES: Denies visual changes, redness, or discharge. ENT: Denies rhinorrhea, congestion, sore throat, or otalgia. CARDIOVASCULAR: Denies chest pain, palpitations, or edema. RESPIRATORY: Denies cough or dyspnea. GASTROINTESTINAL: Denies abdominal pain, nausea, vomiting, or diarrhea. GENITOURINARY: Denies dysuria or hematuria. SKIN: Denies rash or itching. MUSCULOSKELETAL: Denies joint pain, or myalgia. NEUROLOGIC: Denies headache, numbness, dizziness, or weakness. PSYCHIATRIC: Denies anxiety or depression. All systems reviewed & are unremarkable except as noted in HPI and below PMFSH Past Medical History Medical History Arthritis Asthma Atrial fibrillation Bladder cancer BPH (benign prostatic hyperplasia) Carotid stenosis Chronic obstructive pulmonary disease COPD with exacerbation Dyslipidemia Essential hypertension Moderate persistent asthma without complication Old cerebrovascular accident (CVA) without late effect EROS (obstructive sleep apnea) Pneumonia of both lungs due to infectious organism Surgical History Surgical History Cataract extraction status H/O nasal polypectomy H/O transurethral destruction of bladder lesion Follows with Dr Smith. TURBT removed 3 tumors per patient. Had cysto 2months ago by Dr Smith. History of nasal surgery x3. Two surgeries at [facility], one at [facility]. Family History Family History Mother Cerebrovascular accident Father Patient's father is Family history of Alzheimer's disease Alcohol abuse Social History Social History Social History: Patient lives at home with his . He drinks about 1 beer per day. He smoked 1ppd cigarettes x 30 years and quit smoking in the . No substance use. His PCP is Dr Julien Dewitt. He designates his , Sade, as his surrogate decision maker. He wishes to be full code status, but would not wish to be kept on life support for a long period of time. He has Four children Code status full code. Smoking packs per day: 0.2 Smoking cigarettes per day: 4.0 Years smoked: 20 Smoking pack-years: 4.00 Smoking status: Former smoker Tobacco type: cigarettes Smokeless tobacco user: snuff Smoking end date: 12/10/74 Alcohol intake: current Drinks per week: 7 Substance use: never
== END 2022-05-09 18:49 | disposition home or self-care (01) ==
PROVIDERS: Emergency Provider Emergency Medicine; PCP Family Medicine
DX: M54.6 Pain in thoracic spine (principal); M19.90 Unspecified osteoarthritis, unspecified site; J45.909 Unspecified asthma, uncomplicated; I48.91 Unspecified atrial fibrillation; I10 Essential (primary) hypertension
CPT/HCPCS: 71046; 99283

== ENCOUNTER 2022-07-14 15:28 | Emergency (ER) | payer MEDICARE, SELFPAY ==
[2022-07-14] VITALS (27 sets, daily range): BP systolic 122–152; BP diastolic 67–91; PULSE 64–103; RESP 13–30; TEMP 36.7; O2SAT 93–100
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
[2022-07-14] MEDS: TETANUS,DIPHTHERIA,AC PERTUSSIS ADULT (0.5 ML) BOOSTRIX IM (16:29)
[2022-07-14] MEDS: CEPHALEXIN 500 MG CAPSULE PO (19:41)
== END 2022-07-14 19:48 | disposition home or self-care (01) ==
PROVIDERS: Emergency Provider Emergency Medicine; PCP Family Medicine
DX: S01.441A Puncture wound with foreign body of right cheek and temporomandibular area, initial encounter (principal); S61.441A Puncture wound with foreign body of right hand, initial encounter; W34.010A Accidental discharge of airgun, initial encounter; Z23 Encounter for immunization; Z87.891 Personal history of nicotine dependence; M19.90 Unspecified osteoarthritis, unspecified site; I48.91 Unspecified atrial fibrillation; J44.9 Chronic obstructive pulmonary disease, unspecified; E78.5 Hyperlipidemia, unspecified; I10 Essential (primary) hypertension; Z86.73 Personal history of transient ischemic attack (TIA), and cerebral infarction without residual deficits; G47.33 Obstructive sleep apnea (adult) (pediatric); Z85.51 Personal history of malignant neoplasm of bladder
CPT/HCPCS: 70450; 70486; 71046; 73130; 90471; 90715; 99284; A9270

== ENCOUNTER 2022-10-15 22:38 | Observation (INO) | payer MEDICARE, SELFPAY ==
[2022-10-15] VITALS (11 sets, daily range): BP systolic 104–112; BP diastolic 51–77; PULSE 70–82; RESP 11–19; TEMP 36.8; O2SAT 96–99
--- NOTE | ~2022-10-15 | US_ITS ---
EXAMINATION: US carotid duplex BI DATE: 10/16/2022 11:37 INDICATION: EXAMINATION: US carotid duplex BI DATE: 10/16/2022 11:37 INDICATION: History of carotid stenosis. TECHNIQUE: Grayscale, color Doppler, and pulsed Doppler images of the cervical carotid arteries were obtained. The degree of vessel stenosis is placed in one of the following categories: normal, <50%, 5 0-69%, >=70% but less than near-occlusion, near-occlusion, or total occlusion. Note that percent sten osis relative to normal distal artery lumen diameter is indirectly measured from velocity measurement s as described by Papito, et al. Radiology 2003; 229:340-346. Notes: Normal: Peak systolic velocity <125 centimeters/sec and no plaque <50%. Peak systolic velocity <125 ( EDV <40; ICA/CCA PSV ratio <2.0; used these factors only a tandem lesions or low cardiac output or co ntralateral disease) 50-69 %: PSV 125-230 (EDV 40-100; ratio 2-4) >= 70% but less than near occlusion: PSV greater than 230 (EDV > 100; ratio> 4.0) Near Occlusion: PSV that is variable; markedly narrowed lumen Occlusion: Absent flow on color/spectral Doppler and no lumen on ivory scale. COMPARISON: None. FINDINGS: RIGHT: The right common carotid artery (CCA) peak systolic velocity (PSV) is 89 cm/s. The right internal car otid artery (ICA) PSV is 422 cm/s. The right ICA end-diastolic velocity (EDV) is 142 cm/s. The right ICA/CCA PSV ratio is 4.7. The external carotid artery (ECA) PSV is 120 cm/s. There is antegrade flow in the right vertebral artery. LEFT: The left CCA PSV is 117 cm/s. The left ICA PSV is 99 cm/s. The left ICA EDV is 20 cm/s. The left ICA/ CCA PSV ratio is 0.9. The ECA PSV is 103 cm/s. There is antegrade flow in the left vertebral artery. IMPRESSION: 1. Greater than or equal to 70% stenosis in the right internal carotid artery by sonographic criteria . 2. Less than 50% stenosis in the left internal carotid artery by sonographic criteria. Reviewed, dictated and finalized at location A. BIKE RACER IMPRESSION: 1. Greater than or equal to 70% stenosis in the right internal carotid artery b y sonographic criteria. 2. Less than 50% stenosis in the left internal carotid artery by sonographic cr iteria.
--- NOTE | ~2022-10-15 | CT_ITS ---
EXAMINATION: CTA brain carotid DATE: 10/16/2022 08:37 RESTORATIVE CARE TECHNICIAN INDICATION: Headache. TECHNIQUE: Computed tomographic angiography (CTA) of the head was performed without and with 100 mL O mnipaque-350 intravenous contrast. CTA of the neck was performed with intravenous contrast. The dose- length product was 1808.79 mGy-cm. Maximum intensity projection and volume rendered 3D-reconstruction s were created by the technologist on a separate workstation. COMPARISON: CT dated 07/14/2022. FINDINGS: HEAD CTA: Brain parenchymal volume is normal for age. There are scattered mild periventricular and wiley bcortical white matter changes, most likely related to small vessel ischemic disease (microangiopathy ). No ventriculomegaly or midline shift. Basilar cisterns are patent. There is mucosal thickening of the maxillary, ethmoid, right sphenoid and frontal sinuses. No depressed skull fractures. There is at herosclerosis of the internal carotid arteries. There is mild right internal carotid artery stenosis. There is moderate left mid posterior cerebral artery stenosis. No occlusion, severe stenosis or aneu rysm. The vertebral arteries are codominant. NECK CTA: There is mild stenosis at the origin of the left vertebral artery. There is stenosis at the origin of the right internal carotid artery. 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 No cervical lymphadenopathy. Groundglass opacities are identified in the left upper lobe, likely small airway disease. Evaluation for nodules limited by motion. There is 60% stenosis of the proximal right internal carotid artery relative to normal distal artery lumen diameter (NASCET criteria). There is 0% stenosis of the proximal left internal carotid artery r elative to normal distal artery lumen diameter. IMPRESSION: 1. 60% stenosis of the proximal right internal carotid artery relative to normal distal artery lumen diameter (NASCET criteria). 2. 0% stenosis of the proximal left internal carotid artery relative to normal distal artery lumen di ameter. 3: Mild right ICA stenosis. 4: Moderate left mid posterior cerebral artery stenosis. 5: Moderate sinusitis, likely chronic. Reviewed, dictated and finalized at location A. ORATIVE CARE TECHNICIAN IMPRESSION: 1. 60% stenosis of the proximal right internal carotid artery relative to yasmin l distal artery lumen diameter (NASCET criteria). 2. 0% stenosis of the proximal left internal carotid artery relative to normal distal artery lumen diameter. 3: Mild right ICA stenosis. 4: Moderate left mid posterior cerebral artery stenosis. 5: Moderate sinusitis, likely chronic.
--- NOTE | 2022-10-15 22:51 | ECG_ITS ---
Measurements Intervals Byron Rate: 70 P: DC: 0 QRS: 63 QRSD: 98 T: 51 QT: 411 QTc: 446 Interpretive Statements ATRIAL FIBRILLATION ABNORMAL RHYTHM ECG COMPARED TO ECG 02/03/2022 21:28:25 NO SIGNIFICANT CHANGES Electronically Signed On 10-16-2022 15:26:31 INDUSTRIAL PRODUCTION MANAGER by Cheryle Garrett M.D.
[2022-10-15] MEDS: METOCLOPRAMIDE HCL INJ 10 MG/2 ML VIAL IV PUSH (23:28)
[2022-10-15] MEDS: SODIUM CHLORIDE 0.9% IV 1,000 ML 999 ML IV CONT (23:28)
[2022-10-15] MEDS: diphenhydrAMINE HCl INJ 50 MG/ML VIAL 25 MG IV PUSH (23:28)
[2022-10-15 23:35] LABS: Basophils Percent Auto 0.6 % (0.2-1.2); Eosinophils Absolute Auto 0.2 K/mm3 (0-0.3); Eosinophils Percent Auto 3.5 % (0-4.4); Hematocrit 35.9 % (42.0-52.0); Immature Granulocyte Absolute 0.01 K/mm3 (0.00-0.031); Immature Granulocyte Percent A 0.2 % (0-0.5); Lymphocytes Percent Auto 22.3 % (18.3-44.2); Mean Corpuscular HGB Conc 33.4 g/dl (32-36); Mean Corpuscular Hemoglobin 32.2 pg (26-34); Mean Corpuscular Volume 96.2 fl (80-100); Mean Platelet Volume 10.2 fl (7.4-10.4); Monocytes Absolute Auto 0.4 K/mm3 (0.1-0.6); Monocytes Percent Auto 8.2 % (2.6-8.5); Neutrophils Absolute Auto 3.5 K/mm3 (1.3-6.7); Neutrophils Percent Auto 65.2 % (45.5-73.1); Platelet Count Result 141 k/mm3 (150-375); Red Blood Count 3.73 M/mm3 (4.6-6.20); Red Cell Distribution Width 12.8 % (11.5-14.5); White Blood Count 5.4 K/mm3 (4.5-10.0)
[2022-10-15 23:49] LABS: Alanine Aminotransferase 22 U/L (6-50); Albumin Level 3.5 g/dL (3.5-5.1); Alkaline Phosphatase 95 U/L (38-126); Anion Gap 5 mmol/L (8-16); Aspartate Amino Transferase 26 U/L (17-59); Bilirubin,Total 0.4 mg/dL (0.2-1.3); Blood Urea Nitrogen 21 mg/dL (9-20); Carbon Dioxide 27 mmol/L (22-30); Chloride 105 mmol/L (98-107); Estimated CRCL calculation 45 ml/min; Estimated Glomerular Filt Rate > 60; Glucose 105 mg/dL (65-110); Magnesium 2.1 mg/dL (1.6-2.3); Potassium 3.8 mmol/L (3.4-5.0); Sodium 137 mmol/L (137-145)
[2022-10-15 23:52] LABS: INR 2.7; Prothrombin Time 28.2 Seconds (11.1-14.7)
[2022-10-15 23:53] LABS: Partial Thromboplastin Time 46.8 SECONDS (22.3-36.8)
[2022-10-16] VITALS (21 sets, daily range): BP systolic 115–143; BP diastolic 43–119; PULSE 58–98; RESP 11–20; O2SAT 85–100; BMI 25.9
[2022-10-16] LABS: Troponin I < 0.012 ng/mL (0.000-0.034)
[2022-10-16 00:12] LABS: Influenza A QL RT-PCR Negative (Negative); Influenza B QL RT-PCR Negative (Negative); SARS-CoV-2 RNA PCR Negative
[2022-10-16 01:04] LABS: Appearance Urine Clear (Clear); Bilirubin Urine Negative (Negative); Blood Urine Negative (Negative); Color Urine Yellow (Yellow); Glucose Urine UA Negative (Negative); Ketones Urine Negative (Negative); Leukocyte Esterase Ur Negative LEU/UL (Negative); Nitrate Urine Negative (Negative); Protein Urine Negative (Negative); Specific Grav Ur <= 1.005 (1.001-1.035); Urobilinogen Urine 0.2 mg/dL (<2.0); pH Urine 5.5 (5.0-9.0)
[2022-10-16 01:06] LABS: Mucus Urine Rare /lpf; RBC Urine 0-2 /hpf (0-2); WBC Urine 0-3 /hpf
[2022-10-16 01:12] LABS: Add Urine Microscopic? NO
--- NOTE | 2022-10-16 01:17 | PC.NURSE ---
pt unsteady gait during ambulation trial. erp notified.
--- NOTE | 2022-10-16 01:35 | ED.GENADULT ---
HPI - General Adult General Chief complaint: Dizziness Stated complaint: HEADACHE SUDDEN ONSET, N/V, DIZZINESS Time Seen by Provider: 10/15/22 23:03 History of Present Illness HPI narrative: Patient is 87-year-old gentleman who presents emerged from with chief complaint of headache and dizziness. Patient reports for the last several days he has noticed that whenever he looks up he feels off balance and reports that he is minimal unsteady whenever he walks around. The patient also states that today he started having a frontal headache. Patient states this more throbbing like nature reports that he has no focal motor deficits in his body with these episodes. Patient reports that he talk to his about this and was concerned that he may have had a stroke and they brought him to the emergency department for evaluation. Related Data Home Medications Medication Instructions Recorded Confirmed diltiazem HCl 120 mg capsule,24 120 mg PO DAILY 07/07/20 08/09/22 hr,extended release furosemide 20 mg tablet 20 mg PO EVERY OTHER DAY 03/08/21 08/09/22 psyllium husk (with sugar) 3 1 tbsp PO DAILY 02/04/22 08/09/22 gram/7 gram oral powder (Daily Fiber (psyllium-sucrose)) Allergies Allergy/AdvReac Type Severity Reaction Status Date / Time sucralfate Allergy Unknown Hives Verified 08/09/22 10:36 Review of Systems Review of Systems: A 10 system review of systems was completed on the patient and is negative except for what is stated in the HPI. Nursing and ancillary documentation was reviewed. [facility] Past Medical History Medical History Arthritis Asthma Atrial fibrillation Bladder cancer BPH (benign prostatic hyperplasia) Carotid stenosis Chronic obstructive pulmonary disease COPD with exacerbation Dyslipidemia Essential hypertension Moderate persistent asthma without complication Old cerebrovascular accident (CVA) without late effect EROS (obstructive sleep apnea) Pneumonia of both lungs due to infectious organism Surgical History Surgical History Cataract extraction status H/O nasal polypectomy H/O transurethral destruction of bladder lesion Follows with Dr Smith. TURBT removed 3 tumors per patient. Had cysto 2months ago by Dr Smith. History of nasal surgery x3. Two surgeries at [facility], one at [facility]. Family History Family History Mother Cerebrovascular accident Father Patient's father is Family history of Alzheimer's disease Alcohol abuse Social History Social History Social History: Patient lives at home with his . He drinks about 1 beer per day. He smoked 1ppd cigarettes x 30 years and quit smoking in the . No substance use. His PCP is Dr Julien Dewitt. He designates his , Lashanda, as his surrogate decision maker. He wishes to be full code status, but would not wish to be kept on life support for a long period of time. He has Four children Code status full code. Smoking packs per day: 0.2 Smoking cigarettes per day: 4.0 Years smoked: 20 Smoking pack-years: 4.00 Smoking status: Former smoker Tobacco type: cigarettes Smokeless tobacco user: snuff Smoking end date: 12/10/74 Alcohol intake: current Drinks per week: 7 Substance use: never Substance use type: does not use Additional living arrangements comments: - LASHANDA Gender identity (if verbalized by the patient): Male Spiritual care concerns: Yes (caodaism) Agree to blood products: Yes Exam Narrative: GENERAL: Well-appearing, well-nourished, and in no acute distress. HEAD: Normocephalic, atraumatic. EYES: PERRLA and EOMI. ENT: Nares clear, no rhinorrhea or epistaxis. Mucous membranes moist. NECK: Supple.
--- NOTE | 2022-10-16 07:35 | PM.IMHP ---
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 TURBT removed 3 tumors per patient. Had cysto 2months ago by Dr Smith. History of nasal surgery x3. Two surgeries at [facility], one at [facility]. Family History Family History Mother Cerebrovascular accident Father Patient's father is Family history of Alzheimer's disease Alcohol abuse Social History Social History Social History: Patient lives at home with his . He drinks about 1 beer per day. He smoked 1ppd cigarettes x 30 years and quit smoking in the . No substance use. His PCP is Dr Julien Dewitt. He designates his , Lashanda, as his surrogate decision maker. He wishes to be full code status, but would not wish to be kept on life support for a long period of time. He has Four children Code status full code. Smoking packs per day: 0.2 Smoking cigarettes per day: 4.0 Years smoked: 20 Smoking pack-years: 4.00 Smoking status: Former smoker Tobacco type: cigarettes Smokeless tobacco user: snuff Smoking end date: 12/10/74 Alcohol intake: current Drinks per week: 7 Substance use: never Substance use type: does not use Additional living arrangements comments: - LASHANDA Gender identity (if verbalized by the patient): Male Spiritual care concerns: Yes (protestant) Agree to blood products: Yes Meds Home Medications and Allergies Home Medications Medication Instructions Recorded Confirmed Type diltiazem HCl 120 mg capsule,24 120 mg PO DAILY 07/07/20 08/09/22 History hr,extended release furosemide 20 mg tablet 20 mg PO EVERY OTHER DAY 03/08/21 08/09/22 History fluticasone fur. 100 mcg-umeclid 1 inh inhalation DAILY #60 ea 08/09/21 08/09/22 Rx 62.5 mcg-vilant 25 mcg inhalat.powder (Trelegy Ellipta) psyllium husk (with sugar) 3 1 tbsp PO DAILY 02/04/22 08/09/22 History gram/7 gram oral powder (Daily Fiber (psyllium-sucrose)) albuterol sulfate 90 mcg/actuation 2 puff inhalation Q4H PRN Dyspnea 02/06/22 08/09/22 Rx aerosol inhaler 30 days #1 g prednisone 20 mg tablet 40 mg PO DAILY@0800 4 days #8 tabs 02/06/22 08/09/22 Rx rivaroxaban 20 mg tablet (Xarelto) 20 mg PO DAILY #90 tabs 02/19/22 08/09/22 Rx cyclobenzaprine 10 mg tablet 10 mg PO TID PRN muscle spasm #30 05/09/22 08/09/22 Rx tabs lidocaine 5 % topical patch 1 patch topical DAILY #15 ea 05/09/22 08/09/22 Rx (Lidoderm) doxazosin 4 mg tablet 4 mg PO DAILY #90 tabs 07/17/22 08/09/22 Rx montelukast 10 mg tablet 10 mg PO DAILY #90 tabs 07/19/22 08/09/22 Rx rosuvastatin 10 mg tablet See Rx Instructions .Route 08/06/22 08/09/22 Rx .COMPLEX #90 tabs albuterol sulfate 2.5 mg/3 mL See Rx Instructions .Route 09/25/22 Rx (0.083 %) solution for nebulization .COMPLEX #360 mL Allergies Allergy/AdvReac Type Severity Reaction Status Date / Time sucralfate Allergy Unknown Hives Verified 08/09/22 10:36 Vital Signs Vital Signs - 24 hr 10/15/22 22:41 10/15/22 22:47 10/15/22 22:43 Temperature 98.3 F Pulse Rate 76 82 74 Respiratory Rate 14 15 Blood Pressure 112
--- NOTE | 2022-10-16 10:22 | ADMGEN ---
This patient, Edmundo English, was admitted to Virtual Bed 3rd Floor-2, CURRENTLY BOARDED IN ER 8. Patient/family oriented to hospital policies and general routines including ID bracelet, bed and alarms, visiting hours, pain management, procedures, bathroom and other care routines, personal items, smoking policy, room service/diet, and visiting hours. Information on how to activate the Rapid Response Team has been discussed. Patient/Family are encouraged to report perceived risks to care and to ask questions if they do not understand what they are told or what they should do.
[2022-10-16] MEDS: ROSUVASTATIN 10 MG TABLET 20 MG PO (10:37)
[2022-10-16] MEDS: ASPIRIN 81 MG ENTERIC TABLET PO (10:37)
--- NOTE | 2022-10-16 11:06 | PC.NURSE ---
Care assumed, pt in US at this time
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
--- NOTE | 2022-10-16 13:51 | PC.NURSE ---
Pt ambulating in little way with PT
--- NOTE | 2022-10-16 14:20 | PM.SD2 ---
Same Day Admit/Disch: HPI History of Present Illness Chief complaint: Dizziness,internal cartoid stenosis Narrative: Edmundo English is a 87 year old male with chronic atrial fibrillation on Xarelto, COPD, bladder cancer s/p TURP, hypertension, hyperlipidemia, and EROS. He presented to the ED for evaluation of dizziness, unsteadiness, and frontal headache. His is at bedside and assisting with health information. He reports for the past several days when he looks up or down, he feels unsteady. He has some unsteadiness when he walks around. He denies falls. He denies frequent headaches. He denies vision changes, changes in speech, word finding, facial droop, paresthesia, or unilateral extremity weakness. His thinks he was wandering in the yard He has not had any new or changed medications. He is complaint with medications. No known fever, chills, rigors, chest pain, abd pain, nausea, vomiting, or dysuria. His states he does not drink much water and he reports having issues with taking his water pill every day since it interferes with going out. He denies previous strokes, TIAs, or know carotid artery disease. His headache is throbbing and worse when he goes outside. In the ED, his vials were stable and he was afebrile. Orthostatic vitals were negative. CBC, CMP and UA were unremarkable. Influenza A/B and covid PCR were negative. EKG showed rate controlled atrial fibrillation 70 bpm without ischemic changes. CTA head and neck was concerning for severe occlusion of right ICA and moderate left COMPETITIVE ATHLETE stenosis. He was admitted for further evaluation of dizziness. [facility] Past Medical History Medical History (Updated 10/16/22 @ 20:59 by Eugenie Buckley APRN) Arthritis Atrial fibrillation Bladder cancer BPH (benign prostatic hyperplasia) Carotid stenosis Chronic obstructive pulmonary disease Dyslipidemia Essential hypertension Moderate persistent asthma without complication Old cerebrovascular accident (CVA) without late effect EROS (obstructive sleep apnea) Surgical History Surgical History Cataract extraction status H/O nasal polypectomy H/O transurethral destruction of bladder lesion Follows with Dr Smith. TURBT removed 3 tumors per patient. Had cysto 2months ago by Dr Smith. History of nasal surgery x3. Two surgeries at [facility], one at [facility]. Family History Family History Mother Cerebrovascular accident Father Patient's father is Family history of Alzheimer's disease Alcohol abuse Social History Social History Social History: Patient lives at home with his . He drinks about 1 beer per day. He smoked 1ppd cigarettes x 30 years and quit smoking in the . No substance use. His PCP is Dr Julien Dewitt. He designates his , Lashanda, as his surrogate decision maker. He wishes to be full code status, but would not wish to be kept on life support for a long period of time. He has Four children Code status full code. Smoking packs per day: 1 Smoking cigarettes per day: 20.0 Years smoked: 25 Smoking pack-years: 25.00 Smoking status: Former smoker Tobacco type: cigarettes and smokeless tobacco Smokeless tobacco user: chewing tobacco Second hand tobacco smoke exposure: Yes Smoking end date: 12/10/76 Alcohol intake: current Drinks per week: 4 Substance use: never Substance use type: does not use Lack of Transportation: No Lack of Food: Never True Current Housing: I Have Housing Concerned About Future Housing: No Difficulty Paying Gas/Electric Bills: No Difficulty Paying for Meds: No Currently Unemployed: No Education: High School Diploma/GED Difficulty w/ Childcare or Family Care: No Additional living arrangements comments: - LASHANDA Gender identity (if
== END 2022-10-16 15:10 | disposition home or self-care (01) ==
LOC: ANHED 10-16 01:38 → ANH3MEDSUR 10-16 13:51
PROVIDERS: Admitting Provider Internal Medicine; Emergency Provider Emergency Medicine; PCP Family Medicine; Visit Provider Family Medicine
DX: I65.21 Occlusion and stenosis of right carotid artery (principal); I66.8 Occlusion and stenosis of other cerebral arteries; M19.90 Unspecified osteoarthritis, unspecified site; J45.40 Moderate persistent asthma, uncomplicated; I48.11 Longstanding persistent atrial fibrillation; N40.0 Benign prostatic hyperplasia without lower urinary tract symptoms; J44.9 Chronic obstructive pulmonary disease, unspecified; E78.5 Hyperlipidemia, unspecified; I10 Essential (primary) hypertension; Z20.822 Contact with and (suspected) exposure to COVID-19; G47.33 Obstructive sleep apnea (adult) (pediatric); Z18.10 Retained metal fragments, unspecified; Z87.891 Personal history of nicotine dependence; Z86.73 Personal history of transient ischemic attack (TIA), and cerebral infarction without residual deficits; J32.9 Chronic sinusitis, unspecified; F10.90 Alcohol use, unspecified, uncomplicated; R94.31 Abnormal electrocardiogram [ECG] [EKG]; Z85.51 Personal history of malignant neoplasm of bladder; Z87.01 Personal history of pneumonia (recurrent); Z79.01 Long term (current) use of anticoagulants; Z79.51 Long term (current) use of inhaled steroids; Z79.899 Other long term (current) drug therapy; Z82.3 Family history of stroke; Z81.1 Family history of alcohol abuse and dependence; Z81.8 Family history of other mental and behavioral disorders
CPT/HCPCS: 36415; 70496; 70498; 80053; 81003; 83735; 84484; 85025; 85610; 85730; 87636; 93005; 93880; 96361; 96374; 96375; 97161; 97165; 99285; A9270; G0378; J1200; J2765; J7030; Q9967

== ENCOUNTER 2023-05-16 09:15 | Outpatient (CLI) | payer MEDICARE, SELFPAY ==
[2023-05-16 09:42] LABS: Basophils Percent Auto 0.7 % (0.2-1.2); Eosinophils Absolute Auto 0.2 K/mm3 (0-0.3); Eosinophils Percent Auto 4.7 % (0-4.4); Hematocrit 37.7 % (42.0-52.0); Hemoglobin 12.3 g/dL (14.0-18.0); Immature Granulocyte Absolute 0.02 K/mm3 (0.00-0.031); Immature Granulocyte Percent A 0.5 % (0-0.5); Lymphocytes Absolute Auto 1.45 K/mm3 (0.9-3.2); Mean Corpuscular HGB Conc 32.6 g/dl (32-36); Mean Corpuscular Hemoglobin 31.5 pg (26-34); Mean Corpuscular Volume 96.4 fl (80-100); Mean Platelet Volume 9.4 fl (7.4-10.4); Monocytes Absolute Auto 0.4 K/mm3 (0.1-0.6); Monocytes Percent Auto 8.7 % (2.6-8.5); Neutrophils Absolute Auto 2.2 K/mm3 (1.3-6.7); Neutrophils Percent Auto 51.4 % (45.5-73.1); Platelet Count Result 138 k/mm3 (150-375); Red Blood Count 3.91 M/mm3 (4.6-6.20); Red Cell Distribution Width 13.3 % (11.5-14.5); White Blood Count 4.3 K/mm3 (4.5-10.0)
[2023-05-16 09:55] LABS: Anion Gap 0 mmol/L (8-16); Blood Urea Nitrogen 21 mg/dL (9-20); Calcium 8.5 mg/dL (8.4-10.2); Carbon Dioxide 33 mmol/L (22-30); Chloride 104 mmol/L (98-107); Estimated Glomerular Filt Rate > 60; Glucose 92 mg/dL (65-110); Potassium 3.8 mmol/L (3.4-5.0); Sodium 137 mmol/L (137-145)
[2023-05-16 10:01] LABS: NT Pro B Type Natriuretic Pept 1610 pg/mL (19.9-100)
== END 2023-05-16 09:16 | disposition home or self-care (01) ==
PROVIDERS: PCP Family Medicine; Visit Provider Internal Medicine Cardiovascular Disease
DX: R07.9 Chest pain, unspecified (principal); E78.5 Hyperlipidemia, unspecified; R06.09 Other forms of dyspnea; I10 Essential (primary) hypertension; I48.91 Unspecified atrial fibrillation; Z79.899 Other long term (current) drug therapy
CPT/HCPCS: 36415; 80048; 83880; 85025

== ENCOUNTER 2023-12-13 10:21 | Outpatient (CLI) | payer MEDICARE, SELFPAY ==
[2023-12-13 11:05] LABS: Basophils Percent Auto 0.5 % (0.2-1.2); Eosinophils Absolute Auto 0.2 K/mm3 (0-0.3); Eosinophils Percent Auto 4.4 % (0-4.4); Hematocrit 39.2 % (42.0-52.0); Hemoglobin 12.6 g/dL (14.0-18.0); Immature Granulocyte Absolute 0.01 K/mm3 (0.00-0.031); Immature Granulocyte Percent A 0.2 % (0-0.5); Immature Platelet Fraction Pct 2.5 % (0.9-11.2); Lymphocytes Absolute Auto 1.47 K/mm3 (0.9-3.2); Mean Corpuscular HGB Conc 32.1 g/dl (32-36); Mean Corpuscular Volume 96.6 fl (80-100); Mean Platelet Volume 10.1 fl (7.4-10.4); Monocytes Absolute Auto 0.4 K/mm3 (0.1-0.6); Monocytes Percent Auto 8.3 % (2.6-8.5); Neutrophils Absolute Auto 2.3 K/mm3 (1.3-6.7); Neutrophils Percent Auto 52.6 % (45.5-73.1); Platelet Count Result 138 k/mm3 (150-375); Red Blood Count 4.06 M/mm3 (4.6-6.20); Red Cell Distribution Width 13.4 % (11.5-14.5); White Blood Count 4.3 K/mm3 (4.5-10.0)
[2023-12-13 11:17] LABS: Iron 104 ug/dL (49-181)
[2023-12-13 11:19] LABS: Alanine Aminotransferase 19 U/L (6-50); Albumin Level 3.5 g/dL (3.5-5.1); Alkaline Phosphatase 105 U/L (38-126); Anion Gap 4 mmol/L (8-16); Aspartate Amino Transferase 26 U/L (17-59); Bilirubin,Total 0.9 mg/dL (0.2-1.3); Blood Urea Nitrogen 25 mg/dL (9-20); Calcium 8.7 mg/dL (8.4-10.2); Carbon Dioxide 28 mmol/L (22-30); Chloride 105 mmol/L (98-107); Estimated Glomerular Filt Rate > 60; Glucose 86 mg/dL (65-110); Sodium 137 mmol/L (137-145)
[2023-12-13 11:26] LABS: Percent Iron Saturation 30 % (20-50)
[2023-12-13 12:28] LABS: Folic Acid 11.5 ng/mL (2.76->20)
== END 2023-12-13 10:22 | disposition home or self-care (01) ==
PROVIDERS: PCP Family Medicine; Visit Provider Family Medicine
DX: I48.11 Longstanding persistent atrial fibrillation (principal); E78.5 Hyperlipidemia, unspecified; D64.9 Anemia, unspecified
CPT/HCPCS: 36415; 80053; 82607; 82728; 82746; 83540; 83550; 85025; 85055

== ENCOUNTER 2025-09-14 13:38 | Outpatient (CLI) | payer MEDICARE, SELFPAY ==
--- NOTE | ~2025-09-14 | XR_ITS ---
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 Technique: 2 views obtained. Findings: COPD changes. No pneumothorax. Heart is normal size. Mediastinal and hilar contours are within normal limits. Bony thorax no acute abnormality. Impression: No acute cardiopulmonary abnormality. Reviewed, dictated and finalized at location P. COOKING MACHINE OPERATOR Impression: No acute cardiopulmonary abnormality.
== END 2025-09-14 13:39 | disposition home or self-care (01) ==
LOC: MICIMG 13:39
PROVIDERS: PCP Family Medicine
DX: R41.0 Disorientation, unspecified (principal); Z87.891 Personal history of nicotine dependence
CPT/HCPCS: 71046

== ENCOUNTER 2025-10-26 16:19 | Outpatient (CLI) | payer MEDICARE, SELFPAY ==
[2025-10-26 17:14] LABS: Influenza A QL RT-PCR Negative (Negative); Influenza B QL RT-PCR Negative (Negative); RSV RNA, RT-PCR Positive (Negative); SARS-CoV-2 RNA PCR Negative (Negative)
--- OUTSIDE RECORDS SUMMARY | 2025-10-26 18:06 | XMS_ITS | Encounter Summary ---
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 Gender Identity Not on file Sexual Orientation Not on file documented as of this encounter Plan of Treatment Not on file documented as of this encounter Procedures Procedure Name Priority Date/Time Associated Diagnosis Comments CARDIOLOGY DOCUMENT SCAN 05/01/2017 documented in this encounter Results * SCAN - CARDIOLOGY (05/01/2017) Anatomical Region Laterality Modality Other us Provider Scanning [facility] CARDIAC SERVICES PROCEDURES Final Result documented in this encounter Visit Diagnoses Not on filedocumented in this encounter Care Teams Support Services Specialist Relationship Specialty Start Date End Date Julien Dewitt MD [address] [place] [address] PCP - General 01/15/17 documented as of this encounter
--- OUTSIDE RECORDS SUMMARY | 2025-10-26 18:06 | XMS_ITS | Encounter Summary ---
Author Organization [facility] Address [address] [place] [address] Phone Care Team Providers Care Window Covering Sales Consultant Name Role Phone Julien Dewitt MD Primary Care Provider Encounter Details Date Type Department Care Team (Latest Contact Info) Description 11/15/2019 Orders Only [facility] Scanning, Provider Social History Tobacco Use Types Packs/Day Years Used Date Smoking Tobacco: Former Smokeless Tobacco: Former Alcohol Use Standard Drinks/Week Comments Yes 0 (1 standard drink = 0.6 oz pur e alcohol) occasional can of beer Sex and Gender Information Value Date Recorded Sex Assigned at Not on file 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 Gender Identity Not on file Sexual Orientation Not on file documented as of this encounter Plan of Treatment Not on file documented as of this encounter Procedures Procedure Name Priority Date/Time Associated Diagnosis Comments SCAN - RADIOLOGY/IMAGING 11/15/2019 CARDIOLOGY DOCUMENT SCAN 11/15/2019 documented in this encounter Results * SCAN - RADIOLOGY/IMAGING (11/15/2019) Anatomical Region Laterality Modality Other us Provider Scanning Edited Result - Final * SCAN - CARDIOLOGY (11/15/2019) Anatomical Region Laterality Modality Other us Provider Scanning CV CARDIAC SERVICES PROCEDURES Edited Result - Final documented in this encounter Visit Diagnoses Not on filedocumented in this encounter Care Teams Window Covering Sales Consultant Relationship Specialty Start Date End Date Julien Dewitt MD [address] [facility] [address] [place] [id number] PCP - General 01/15/17 documented as of this encounter
--- OUTSIDE RECORDS SUMMARY | 2025-10-26 18:06 | XMS_ITS | Encounter Summary ---
Author Organization [facility] Address [address] [place] [address] Phone Care Team Providers Care Inspector And Sorter Name Role Phone Julien Dewitt MD Primary Care Provider Encounter Details Date Type Department Care Team (Latest Contact Info) Description 11/24/2019 Orders Only [facility] Scanning, Provider Social History Tobacco Use Types Packs/Day Years Used Date Smoking Tobacco: Former Smokeless Tobacco: Former Alcohol Use Standard Drinks/Week Comments Yes 0 (1 standard drink = 0.6 oz pur e alcohol) occasional can of beer Sex and Gender Information Value Date Recorded Sex Assigned at Not on file Legal Sex Male 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 Gender Identity Not on file Sexual Orientation Not on file documented as of this encounter Plan of Treatment Not on file documented as of this encounter Procedures Procedure Name Priority Date/Time Associated Diagnosis Comments CARDIOLOGY DOCUMENT SCAN 11/24/2019 documented in this encounter Results * SCAN - CARDIOLOGY (11/24/2019) Anatomical Region Laterality Modality Other us Provider Scanning CV CARDIAC SERVICES PROCEDURES Final Result documented in this encounter Visit Diagnoses Not on filedocumented in this encounter Care Teams Inspector And Sorter Relationship Specialty Start Date End Date Julien Dewitt MD [address] [place], [place] [phone] PCP - General 01/15/17 documented as of this encounter
--- OUTSIDE RECORDS SUMMARY | 2025-10-26 18:06 | XMS_ITS | Encounter Summary ---
Author Organization [facility] Address [address] [place] [address] Phone Care Team Providers Care Eyeglass Fitter Name Role Phone Julien Dewitt MD Primary Care Provider Encounter Details Date Type Department Care Team (Latest Contact Info) Description 03/31/2020 Orders Only [facility] Scanning, Provider Social History Tobacco Use Types Packs/Day Years Used Date Smoking Tobacco: Former Smokeless Tobacco: Former Alcohol Use Standard Drinks/Week Comments Yes 0 (1 standard drink = 0.6 oz pur e alcohol) occasional can of beer Sex and Gender Information Value Date Recorded Sex Assigned at Not on file 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 Gender Identity Not on file Sexual Orientation Not on file documented as of this encounter Plan of Treatment Not on file documented as of this encounter Procedures Procedure Name Priority Date/Time Associated Diagnosis Comments SCAN - RADIOLOGY/IMAGING 03/31/2020 documented in this encounter Results * SCAN - RADIOLOGY/IMAGING (03/31/2020) Anatomical Region Laterality Modality Other us Provider Scanning Final Result documented in this encounter Visit Diagnoses Not on filedocumented in this encounter Care Teams Eyeglass Fitter Relationship Specialty Start Date End Date Julien Dewitt MD [address] [place] [address] PCP - General 01/15/17 documented as of this encounter
--- OUTSIDE RECORDS SUMMARY | 2025-10-26 18:06 | XMS_ITS | Encounter Summary ---
Author Organization [facility] Address [address] [place] [address] Phone Care Team Providers Care Associate Professor Of Archaeology Name Role Phone Julien Dewitt MD Primary Care Provider Encounter Details Date Type Department Care Team (Latest Contact Info) Description 08/16/2021 Orders Only [facility] Scanning, Provider Social History Tobacco Use Types Packs/Day Years Used Date Smoking Tobacco: Former Smokeless Tobacco: Former Alcohol Use Standard Drinks/Week Comments Yes 0 (1 standard drink = 0.6 oz pur e alcohol) occasional can of beer Sex and Gender Information Value Date Recorded Sex Assigned at Not on file Legal Sex Male 2:06 AM TALENT DEVELOPMENT CONSULTANT Gender Identity Not on file Sexual Orientation Not on file documented as of this encounter Plan of Treatment Not on file documented as of this encounter Procedures Procedure Name Priority Date/Time Associated Diagnosis Comments SCAN - LABS 08/16/2021 documented in this encounter Results * SCAN - LABS (08/16/2021) us Provider Scanning Final Result documented in this encounter Visit Diagnoses Not on filedocumented in this encounter Care Teams Associate Professor Of Archaeology Relationship Specialty Start Date End Date Julien Dewitt MD [address] [place], [place] [phone] PCP - General 01/15/17 documented as of this encounter
--- OUTSIDE RECORDS SUMMARY | 2025-10-26 18:06 | XMS_ITS | Encounter Summary ---
Author Organization [facility] Address [address] [place] [address] Phone Care Team Providers Care Manager Pacu Name Role Phone Julien Dewitt MD Primary Care Provider Encounter Details Date Type Department Care Team (Latest Contact Info) Description 11/15/2019 Orders Only [facility] Scanning, Provider Social History Tobacco Use Types Packs/Day Years Used Date Smoking Tobacco: Former Smokeless Tobacco: Former Alcohol Use Standard Drinks/Week Comments Yes 0 (1 standard drink = 0.6 oz pur e alcohol) occasional can of beer Sex and Gender Information Value Date Recorded Sex Assigned at Not on file 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 Gender Identity Not on file Sexual Orientation Not on file documented as of this encounter Plan of Treatment Not on file documented as of this encounter Procedures Procedure Name Priority Date/Time Associated Diagnosis Comments SCAN - RADIOLOGY/IMAGING 11/15/2019 documented in this encounter Results * SCAN - RADIOLOGY/IMAGING (11/15/2019) Anatomical Region Laterality Modality Other us Provider Scanning Edited Result - Final documented in this encounter Visit Diagnoses Not on filedocumented in this encounter Care Teams Manager Pacu Relationship Specialty Start Date End Date Julien Dewitt MD [address] [place] [address] PCP - General 01/15/17 documented as of this encounter
--- OUTSIDE RECORDS SUMMARY | 2025-10-26 18:06 | XMS_ITS | Encounter Summary ---
Author Organization 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 Gender Identity Not on file Sexual Orientation Not on file documented as of this encounter Plan of Treatment Not on file documented as of this encounter Procedures Procedure Name Priority Date/Time Associated Diagnosis Comments CARDIOLOGY DOCUMENT SCAN 03/31/2016 documented in this encounter Results * SCAN - CARDIOLOGY (03/31/2016) Anatomical Region Laterality Modality Other us Provider Scanning CV CARDIAC SERVICES PROCEDURES Final Result documented in this encounter Visit Diagnoses Not on filedocumented in this encounter Care Teams Edging Catcher Relationship Specialty Start Date End Date Julien Dewitt MD [address] [place] [address] PCP - General 01/15/17 Justin Santillan MD [address] [place] [address] PCP - General 04/02/14 01/14/17 documented as of this encounter
--- OUTSIDE RECORDS SUMMARY | 2025-10-26 18:06 | XMS_ITS | Clinical Summary ---
Author Organization [facility] Address [address] [place] [address] Care Team Providers Care Casualty Underwriter Name Role Phone Julien Dewitt MD Primary Care Provider Allergies Active Allergy Reactions Criticality Noted Date Comments Sucralfate Rash Medium 05/24/2017 Medications doxazosin (CARDURA) 4 mg tablet Take 1 tablet (4 mg total) by mouth daily 0 7 Active XARELTO tabletIndicatio ns:Venous Thrombosis Take 1 tablet (20 mg total) by mouth every morning 7 Active polycarbophil (FIBERCON) 625 mg tabletIndicatio ns:constipation Take 1 tablet (625 mg total) by mouth every morning Active rosuvastatin (CRESTOR) 10 mg tabletIndicatio ns:hyperlipidem ia Take 1 tablet (10 mg total) by mouth daily 0 Active aspirin 81 mg enteric coated tabletIndicatio ns:prevention of thrombosis Take 1 tablet (81 mg total) by mouth every morning Active albuterol 2.5 mg /3 mL (0.083 %) nebulizer solutionIndicat ions:Chronic Obstructive Pulmonary Disease Take 3 mL (2.5 mg total) by nebulization every 6 (six) hours as needed for wheezing Active dilTIAZem CD/XR/XT (dilTIAZem CD) 120 mg 24 hr capsule Take 1 capsule (120 mg total) by mouth daily 90 capsule 3 3 Active montelukast (SINGULAIR) 10 mg tablet Take 1 tablet (10 mg total) by mouth daily 4 Active furosemide (LASIX) 20 mg tabletIndicatio ns:Dyspnea on exertion TAKE 1 TABLET(20 MG) BY MOUTH EVERY OTHER DAY 45 tablet 3 5 Active ProAir HFA 90 mcg/actuation inhalerIndicati ons:Chronic Obstructive Pulmonary Disease Inhale 1 puff 4 (four) times a day 1 each 2 5 Active Trelegy Ellipta 100-62.5-25 mcg inhalerIndicati ons:Bronchospas m Prevention with COPD Inhale 1 puff daily 1 each 3 5 Active Active Problems Problem Noted Date Diagnosed Date Atrial fibrillation 11/09/2022 Assessment & Plan (11/10/2022 11:52 AM MEDICAL LAB SCIENTIST): - Managed by Dr Giordano with rate control and anticoagulation (Xarelto) - Cardizem CD 120 mg daily resumed 11/10, no beta blockers due to COPD - Currently holding xarelto, will resume on 11/11/22 at home with no additional therapeutic lovenox injections needed Carotid artery disease 11/09/2022 Shortness of breath 01/06/2019 Overview (01/06/2019): Added automatically from request for surgery [id number] Chronic obstructive pulmonary disease 01/06/2019 Overview (01/06/2019): Added automatically from request for surgery [id number] Assessment & Plan (11/09/2022 5:46 AM MEDICAL LAB SCIENTIST): - Continue home medications as able - IS, OOB when OK from surgical perspective Dyslipidemia 08/10/2017 Benign hypertension 08/10/2017 Abnormal stress test 07/05/2017 Dyspnea on exertion 07/05/2017 Pulmonary emphysema 05/24/2017 Mixed hyperlipidemia 05/24/2017 Chronic anticoagulation 05/24/2017 EROS (obstructive sleep apnea) 05/24/2017 Enlarged prostate Resolved Problems Problem Noted Date Diagnosed Date Resolved Date Bilateral carotid artery occlusion 11/01/2022 07/06/2024 Overview (11/01/2022): Added automatically from request for surgery [id number] Assessment & Plan (11/10/2022 11:51 AM MEDICAL LAB SCIENTIST): - Workup revealed significant R ICA stenosis - OR 11/09 for planned R carotid endarterectomy - SBP goal 90-150, at goal overnight without the need for antihypertensive medication - Holding home xarelto, will resume on 11/11/22 after discharge today - OU status, Q2h NV monitoring - Continue aspirin + statin Persistent atrial fibrillation 07/12/2017 01/23/2022 Paroxysmal atrial fibrillation (CMS/HCC) 05/24/2017 01/23/2022 Encounters Date Type Department Care Team Description 07/30/2025 Telephone [facility] Cardiology [address] [facility] 8th [place] [address] [place] [address] Everette Giordano MD 07/30/2025 Results Follow-Up [facility] Cardiology [address] [facility] [address] [place] [phone] Kitty Gardner RN SCAN - LABS 07/29/2025 8:00 AM CDT Office Visit [facility] Cardiology [address] [facility] [address] [place] [phone] Everette Giordano MD Permanent atrial fibrillation (HCC) (Primary Dx); Mixed hyperlipidemia 07/29/2025 Telephone [facility] Cardiology [address] [facility] [address] [place] [phone] Everette Giordano MD lab request from Last 3 Months Surgical History Surgery Date Site/Laterality Comments NASAL POLYP SURGERY BLADDER SURGERY bladder scraping for CA Medical History Medical History Date Comments Hypertension Atrial fibrillation (HCC) Asthma COPD (chronic obstructive pulmonary disease) Enlarged prostate Pulmonary emphysema 05/24/2017 Atrial fibrillation, new onset (HCC) 05/24/2017 Mixed hyperlipidemia 05/24/2017 Chronic anticoagulation 05/24/2017 EROS (obstructive sleep apnea) 05/24/2017 SUÁREZ (dyspnea on exertion) 07/05/2017 Cancer (HCC) Family History Medical History Relation Name Comments Heart attack Brother 1 Heart attack Brother 2 Family history of heart attack - (Added by TW Conv) Coronary artery disease Father Fami ly history of coronary artery disease - (Added by TW Conv) Cerebral aneurysm Mother Stroke Mother Family history of stroke - (Added by TW Conv) Diabetes Sister Family history of diabetes mellitus - (Added by TW Conv) Anesthesia problems Neg Hx Relation Name Status Comments Brother 1 Brother 2 Father Mother Sister Social History Tobacco Use Types Packs/Day Years Used Date Smoking Tobacco: Former Cigarettes Q uit: 1976 Passive Smoke Exposure: Past Smokeless Tobacco: Former Chew Quit: 1976 Tobacco Cessation:Counseling Given: Not Answered Alcohol Use Standard Drinks/Week Comments Yes 0 (1 standard drink = 0.6 oz pur e alcohol) occasional can of beer AUDIT-C Answer Date Recorded Q1: How often do you have a drink containing alcohol? 4 or more times a week 11/09/2022 Q2: How many drinks containi ng alcohol do you have on a typical day when you are drinking? 1 or 2 Q3: How often do you have si x or more drinks on one occasion? Never 11/09/2022 Sex and Gender Information Value Date Recorded Sex Assigned at Not on file Legal Sex Male 2:06 AM MEDICAL LAB SCIENTIST Gender Identity Not on file Sexual Orientation Not on file Last Filed Vital Signs Vital Sign Reading Time Taken Comments Blood Pressure 157/79 07/29/2025 7:47 AM CDT Pulse 76 07/29/2025 7:47 AM CDT Temperature 37 C (98.6 F) 07/29/2025 7:47 AM CDT Respiratory Rate 18 05/11/2025 9:25 AM CDT Oxygen Saturation 98% 07/29/2025 7:47 AM CDT Inhaled Oxygen Concentration - - Weight 79.4 kg (175 lb) 07/29/2025 7:47 AM CDT Height 175.3 cm (5' 9) 07/29/2025 7:47 AM CDT Body Mass Index 25.84 07/29/2025 7:47 AM CDT Plan of Treatment Health Maintenance Due Date Last Done Comments Depression Screening 1936 Hepatitis B Screening 1954 Zoster Vaccine (1 of 2) 1986 Well Visit 65+ 2001 DTaP/Tdap/Td Vaccine (2 - Td or Tdap) 07/08/2022 07/08/2012 Fall Risk Assessment 11/10/2023 11/10/2022 Influenza Vaccine (#1) 2025 9, 08/03/2018, 08/12/2017, Additional history exists Pneumococcal vaccine 65+ Completed 08/18/2015, 05/2015 Medical Devices Implanted Type Area Financial Services Consultant Device Identifier Shelf Expiration Date Model / Serial / Lot [employer] Vascu-Guard 8x.8cm Peripheral Patch Vascular Bovine Pericardium [id number] - S - [id number] Implanted:Qty: 1 on 11/09/2022 by Kitty Kruger MD PhD at [facility] Other - see comments Right: Carotid [employer] [id number] 06/13/2027 [id number]-[id number] / / [id number] Description:Vascular patch Insurance MEDICARE ADVANTAGE [facility] MEDICARE ADVANTAGE [employer] MEDICARE ADVANTAGE Advance Directives For more information, please contact: [phone] * Full Code (Latest Code Status on File) Date Activated Date Inactivated Comments 11/09/2022 12:45 PM 11/10/2022 5:45 PM * Full Code Date Activated Date Inactivated Comments 01/19/2019 5:50 PM 01/19/2019 11:58 PM Care Teams Casualty Underwriter Relationship Specialty Start Date End Date Julien Dewitt MD [address] [facility] [address] [place] [address] PCP - General 01/15/17
--- OUTSIDE RECORDS SUMMARY | 2025-10-26 18:06 | XMS_ITS | Encounter Summary ---
Author Organization [facility] Address [address] [place] [address] Phone Care Team Providers Care Digital Marketing Apprentice Name Role Phone Julien Dewitt MD Primary Care Provider Encounter Details Date Type Department Care Team (Latest Contact Info) Description 05/17/2025 Orders Only [facility] Kitty Gardner, RN [address] [facility] [address] [place] [address] Social History Tobacco Use Types Packs/Day Years Used Date Smoking Tobacco: Former Cigarettes Q uit: 1976 Smokeless Tobacco: Former Chew Quit: 1976 Alcohol Use Standard Drinks/Week Comments Yes 0 [...] on file Legal Sex Male 2:06 AM REWORK OPERATOR Gender Identity Not on file Sexual Orientation Not on file documented as of this encounter Plan of Treatment Not on file documented as of this encounter Procedures Procedure Name Priority Date/Time Associated Diagnosis Comments SCAN - LABS 05/17/2025 documented in this encounter Results * SCAN - LABS (05/17/2025) us Kitty Gardner RN Final Result documented in this encounter Visit Diagnoses Not on filedocumented in this encounter Care Teams Digital Marketing Apprentice Relationship Specialty Start Date End Date Julien Dewitt MD [address] [facility] [address] [place] [address] PCP - General 01/15/17 documented as of this encounter
--- OUTSIDE RECORDS SUMMARY | 2025-10-26 18:06 | XMS_ITS | Encounter Summary ---
Author Organization [facility] Address [address] [place] [address] Phone Care Team Providers Care Body Welder Name Role Phone Julien Dewitt MD Primary Care Provider Justin Santillan MD Primary Care Provider [phone] Justin Santillan MD Primary Care Provider [phone]- [phone] Encounter Details Date Type Department Care Team (Latest Contact Info) Description 03/25/2014 Orders Only [facility] Scanning, Provider Social History Tobacco Use Types Packs/Day Years Used Date Smoking Tobacco: Never Assessed Sex and Gender Information Value Date Recorded Sex Assigned at Not on file Legal Sex Male 2:06 AM WOODWORKING SHOP LABORER Gender Identity Not on file Sexual Orientation Not on file documented as of this encounter Plan of Treatment Not on file documented as of this encounter Procedures Procedure Name Priority Date/Time Associated Diagnosis Comments SCAN - RADIOLOGY/IMAGING 03/25/2014 documented in this encounter Results * SCAN - RADIOLOGY/IMAGING (03/25/2014) Anatomical Region Laterality Modality Other us Provider Scanning Final Result documented in this encounter Visit Diagnoses Not on filedocumented in this encounter Care Teams Body Welder Relationship Specialty Start Date End Date Julien Dewitt MD [address] [place] [address] PCP - General 01/15/17 Justin Santillan MD [address] [place] [address] PCP - General 04/02/14 01/14/17 Justin Santillan MD [address] [place] [address] PCP - General 03/31/14 04/01/14 documented as of this encounter
--- OUTSIDE RECORDS SUMMARY | 2025-10-26 18:06 | XMS_ITS | Encounter Summary ---
Author Organization [facility] Address [address] [place] [address] Phone Care Team Providers Care Hydroelectric Machinery Mechanic Name Role Phone Julien Dewitt MD Primary Care Provider Encounter Details Date Type Department Care Team (Latest Contact Info) Description 02/03/2022 Orders Only [facility] Scanning, Provider Social History Tobacco Use Types Packs/Day Years Used Date Smoking Tobacco: Former Smokeless Tobacco: Former Alcohol Use Standard Drinks/Week Comments Yes 0 (1 standard drink = 0.6 oz pur e alcohol) occasional can of beer Sex and Gender Information Value Date Recorded Sex Assigned at Not on file Legal Sex Male 2:06 AM ASSISTANT MANAGER AIRSIDE OPERATIONS Gender Identity Not on file Sexual Orientation Not on file documented as of this encounter Plan of Treatment Not on file documented as of this encounter Procedures Procedure Name Priority Date/Time Associated Diagnosis Comments SCAN - RADIOLOGY/IMAGING 02/03/2022 SCAN - LABS 02/03/2022 CARDIOLOGY DOCUMENT SCAN 02/03/2022 documented in this encounter Results * SCAN - LABS (02/03/2022) us Provider Scanning Final Result * CARDIOLOGY DOCUMENT SCAN (02/03/2022) Anatomical Region Laterality Modality Other us Provider Scanning CV CARDIAC SERVICES PROCEDURES Edited Result - Final * SCAN - RADIOLOGY/IMAGING (02/03/2022) Anatomical Region Laterality Modality Other us Provider Scanning Final Result documented in this encounter Visit Diagnoses Not on filedocumented in this encounter Care Teams Hydroelectric Machinery Mechanic Relationship Specialty Start Date End Date Julien Dewitt MD [address] [facility] [address] [place] [id number] PCP - General 01/15/17 documented as of this encounter
== END 2025-10-26 16:20 | disposition home or self-care (01) ==
PROVIDERS: PCP Family Medicine; Visit Provider Physician Assistant
DX: J02.9 Acute pharyngitis, unspecified (principal); Z20.822 Contact with and (suspected) exposure to COVID-19
CPT/HCPCS: 87637

== ENCOUNTER 2025-11-07 14:21 | Inpatient (IN) | payer MEDICARE, SELFPAY ==
[2025-11-07] VITALS (20 sets, daily range): BP systolic 97–129; BP diastolic 34–70; PULSE 55–82; RESP 15–22; TEMP 36.3–36.8; O2SAT 93–99; BMI 24.9; BMI 24.6
--- NOTE | ~2025-11-07 | CT_ITS ---
EXAMINATION: CT brain wo con DATE: 11/08/2025 15:10 INDICATION: Altered mental status TECHNIQUE: Computed tomography (CT) of the head was performed without intravenous contrast. Sagittal and coronal reconstructions were performed. The mA was adjusted according to patient size. Iterative reconstruction technique was employed. The dose-length product was 605.33 mGy-cm. COMPARISON: head CT dated 10/16/2022 FINDINGS: Old lacunar infarcts at the left caudate nucleus and at the left subinsular white matter. No acute intracranial hemorrhage, acute infarction or abnormal extra axial fluid collection. There is moderate scattered white matter hypoattenuation consistent with chronic small vessel ischemic disease. There is moderate scattered white matter hypoattenuation consistent with chronic small vessel ischemic disease. Symmetric prominence of the sulci and subarachnoid spaces overlying the convexities consistent with mild to moderate age- appropriate diffuse cerebral volume loss. Ventricles are normal and symmetric. No mass/mass effect. Changes of bilateral intraocular lens replacement. The orbits and mastoid air cells are normal. Complete opacification of the right sphenoid sinus with high attenuation centrally and thickened sclerotic gonzalez consistent with chronic likely fungal sinusitis. Dependent bubbly mucus in left maxillary sinus which also demonstrates thickened sclerotic gonzalez consistent with likely acute on chronic sinusitis. Mild mucosal thickening bilateral ethmoid sinuses with change of bilateral ethmoidectomies. IMPRESSION: 1. Small old lacunar infarcts at the left caudate nucleus and left subinsular white matter. No acute intracranial process. 2. Age-related changes including mild diffuse volume loss and moderate scattered white matter hypoattenuation consistent with chronic small vessel ischemic disease. 3. 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 Reviewed, dictated and finalized at location A. IDE EVENT SALES SPECIALIST IMPRESSION: 1. Small old lacunar infarcts at the left caudate nucleus and left subinsular w juvencio matter. No acute intracranial process. 2. Age-related changes including mild diffuse volume loss and moderate scattere d white matter hypoattenuation consistent with chronic small vessel ischemic di sease. 3. Chronic left maxillary and right sphenoid sinus with bubbly mucus in the lef t maxillary sinus suggesting recurrent acute sinusitis.
--- NOTE | ~2025-11-07 | CT_ITS ---
EXAMINATION: CTA chest PE protocol DATE: 11/07/2025 18:22 INDICATION: Shortness of breath. TECHNIQUE: Computed tomography angiography (CTA) of the chest was performed with 100 mL Omnipaque-350 intravenous contrast timed to evaluate the pulmonary arteries. Coronal maximum intensity projection 3D-reconstructions were created by the technologist. Automated exposure control and iterative reconstruction technique were employed. The dose-length product was 319.88 mGy-cm. COMPARISON: Chest x-ray dated 10/30/2025. FINDINGS: Centrilobular pattern of emphysema of lungs. No acute pulmonary findings are seen. No evidence of pulmonary emboli. Thoracic aorta shows atherosclerotic changes without dissection. Cardiomegaly is noted with pericardial effusion measuring up to 17 mm in width. Prominent inferior vena cava and hepatic veins suggest elevated right cardiac pressure. IMPRESSION: 1. No evidence of pulmonary emboli. Thoracic aorta shows no acute findings. 2. Emphysematous lungs. Coronary artery calcification of left main, anterior descending and right coronary arteries. 3. Cardiomegaly with left atrial, right ventricular and right atrial enlargement with pericardial effusion. Dilated inferior vena cava and hepatic veins suggestive of elevated right cardiac pressures. 4. Calcific atherosclerotic changes at the origin of renal arteries. Reviewed, dictated and finalized at location T. ROOM TECHNICIAN IMPRESSION: 1. No evidence of pulmonary emboli. Thoracic aorta shows no acute findings. 2. Emphysematous lungs. Coronary artery calcification of left main, anterior de scending and right coronary arteries. 3. Cardiomegaly with left atrial, right ventricular and right atrial enlargemen t with pericardial effusion. Dilated inferior vena cava and hepatic veins sugge stive of elevated right cardiac pressures. 4. Calcific atherosclerotic changes at the origin of renal arteries.
--- NOTE | ~2025-11-07 | XR_ITS ---
EXAMINATION: XR chest 2V DATE: 11/07/2025 16:41 INDICATION: Short of breath. TECHNIQUE: Frontal and lateral views of the chest were obtained. COMPARISON: Chest x-ray dated 09/14/2025. FINDINGS: Mild cardiomegaly. Emphysematous lungs. No acute pulmonary lesions. IMPRESSION: 1. No acute findings. Emphysematous lungs. Reviewed, dictated and finalized at location T. NDER FARM WORKER
--- NOTE | 2025-11-07 14:47 | ECG_ITS ---
Test Date: 2025-11-07 15:00:53 Measurements Intervals [place] Rate: 59 P: 0 FL: 0 QRS: 81 QRSD: 102 T: 93 QT: 442 QTc: 440 Interpretive Statements ATRIAL FIBRILLATION WITH SLOW VENTRICULAR RESPONSE INCOMPLETE RIGHT BUNDLE BRANCH BLOCK BORDERLINE ST-T WAVE ABNORMALITY- INF/HIGH LAT LEADS BASELINE ARTIFACT- I, II, III, AVR, AVL, AVF, V1-V6 ABNORMAL ECG No previous ECG available for comparison Electronically Signed On 11-08-2025 08:42:44 PROGRAMMING DIRECTOR by Chaitanya Herndon D.O.
[2025-11-07 15:02] LABS: Hematocrit 39.9 % (42.0-52.0); Hemoglobin 13.7 g/dL (14.0-18.0); Immature Granulocyte Percent A 0.9 % (0-0.5); Lymphocytes Absolute Auto 1.71 K/mm3 (0.9-3.2); Mean Corpuscular HGB Conc 34.3 g/dl (32-36); Mean Corpuscular Hemoglobin 32.1 pg (26-34); Mean Corpuscular Volume 93.4 fl (80-100); Nucleated Red Blood Cells Absolute Auto 0.000 K/mm3 (0.0-0.012); Nucleated Red Blood Cells Perc 0.0 % (0.0-0.2); Platelet Count Result 159 k/mm3 (150-375); Red Blood Count 4.27 M/mm3 (4.6-6.20); White Blood Count 7.9 K/mm3 (4.5-10.0)
[2025-11-07 15:12] LABS: INR 3.6; Prothrombin Time 34.3 Seconds (11.1-14.7)
[2025-11-07 15:13] LABS: Partial Thromboplastin Time 38.4 Seconds (22.3-36.8)
[2025-11-07 15:21] LABS: Alanine Aminotransferase 44 U/L (6-50); Albumin Level 3.1 g/dL (3.5-5.1); Alkaline Phosphatase 101 U/L (38-126); Anion Gap 3 mmol/L (4-12); Aspartate Amino Transferase 28 U/L (17-59); Bilirubin,Total 1.1 mg/dL (0.2-1.3); Blood Urea Nitrogen 20 mg/dL (9-20); Calcium 8.3 mg/dL (8.4-10.2); Carbon Dioxide 28 mmol/L (22-30); Chloride 102 mmol/L (98-107); Estimated Glomerular Filt Rate > 60; Glucose 95 mg/dL (65-110); Potassium 3.9 mmol/L (3.4-5.0); Sodium 133 mmol/L (137-145); Total Protein 5.8 g/dL (6.3-8.2)
--- OUTSIDE RECORDS SUMMARY | 2025-11-07 15:22 | XMS_ITS | Encounter Summary ---
Author Organization [facility] Address [address] [place] [address] Phone Care Team Providers Care Gusset Ripper Name Role Phone Julien Dewitt MD Primary Care Provider Encounter Details Date Type Department Care Team (Latest Contact Info) Description 05/17/2025 Orders Only [facility] Kitty Gardner, RN [address] [facility] [address] [place] [address] Social History Tobacco Use Types [...] on file Legal Sex Male 2:06 AM SWIMMING COACH OR INSTRUCTOR Gender Identity Not on file Sexual Orientation [...] on filedocumented in this encounter Care Teams Gusset Ripper Relationship Specialty Start Date End Date Julien Dewitt MD [address] [facility] [address] [place] [address] PCP - General 01/15/17 documented as of this encounter
--- OUTSIDE RECORDS SUMMARY | 2025-11-07 15:22 | XMS_ITS | Encounter Summary ---
Author Organization [facility] Address [address] [place] [address] Phone Care Team Providers Care Client Delivery Manager Name Role Phone Julien Dewitt MD Primary [...] on file Legal Sex Male 2:06 AM ELECTRIC CRANE OPERATOR Gender Identity Not on file Sexual [...] on filedocumented in this encounter Care Teams Client Delivery Manager Relationship Specialty Start Date End Date Julien Dewitt MD [address] [facility] [address] [place] [phone] PCP - General 01/15/17 documented as of this encounter
--- OUTSIDE RECORDS SUMMARY | 2025-11-07 15:22 | XMS_ITS | Encounter Summary ---
Author Organization [facility] Address [address] [place] [address] Phone Care Team Providers Care Pattern Fitter Name Role Phone Julien Dewitt MD [...] on file Legal Sex Male 2:06 AM MANAGER STYLE Gender Identity Not on file Sexual Orientation [...] on filedocumented in this encounter Care Teams Pattern Fitter Relationship Specialty Start Date End Date Julien Dewitt MD [address] [place], [place] [id number] PCP - General 01/15/17 documented as of this encounter
--- OUTSIDE RECORDS SUMMARY | 2025-11-07 15:22 | XMS_ITS | Encounter Summary ---
Author Organization [facility] Address [address] [place] [address] Phone Care Team Providers Care Painter Helper Name Role Phone Julien Dewitt MD Primary [...] on file Legal Sex Male 2:06 AM BRIDGE TEACHER Gender Identity Not on file Sexual Orientation [...] on filedocumented in this encounter Care Teams Painter Helper Relationship Specialty Start Date End Date Julien Dewitt MD [address] [facility] [address] [place] [phone] PCP - General 01/15/17 documented as of this encounter
--- OUTSIDE RECORDS SUMMARY | 2025-11-07 15:22 | XMS_ITS | Clinical Summary ---
Author Organization [facility] Address [address] [place] [address] Care Team Providers Care Chinese Teacher Name Role Phone Julien Dewitt MD Primary [...] 11/09/2022 Assessment & Plan (11/10/2022 11:52 AM MULTIPLE SPINDLE SCREW MACHINE OPERATOR): - Managed by Dr Giordano with rate [...] [id number] Assessment & Plan (11/09/2022 5:46 AM MULTIPLE SPINDLE SCREW MACHINE OPERATOR): - Continue home medications as able - [...] (11/01/2022): Added automatically from request for surgery [id number] Assessment & Plan (11/10/2022 11:51 AM MULTIPLE SPINDLE SCREW MACHINE OPERATOR): - Workup revealed significant R ICA stenosis - OR 11/09 for planned R carotid endarterectomy - SBP goal 90-150, at goal overnight without the need for antihypertensive medication - Holding home xarelto, will resume on 11/11/22 after discharge today - OU status, Q2h NV monitoring - Continue aspirin + statin Persistent atrial fibrillation 07/12/2017 01/23/2022 Paroxysmal atrial fibrillation (CMS/HCC) 05/24/2017 01/23/2022 Surgical History Surgery Date Site/Laterality Comments NASAL [...] on file Legal Sex Male 2:06 AM MULTIPLE SPINDLE SCREW MACHINE OPERATOR Gender Identity Not on file Sexual [...] 08/18/2015, 05/2015 Medical Devices Implanted Type Area Apparel Cutter Device Identifier Shelf Expiration Date Model / Serial / Lot [employer] Vascu-Guard 8x.8cm Peripheral Patch Vascular Bovine Pericardium Vg-[id number] - S - [id number] Implanted:Qty: 1 on 11/09/2022 by Kitty Kruger MD PhD at [facility] Other - see comments Right: Carotid [employer] [id number] 06/13/2027 [id number]-[id number] / / [id number]- [id number] Description:Vascular patch Insurance MEDICARE ADVANTAGE MEDICARE ADVANTAGE MEDICARE ADVANTAGE Advance Directives For more information, please contact: [phone] * Full Code (Latest Code Status on File) Date Activated Date Inactivated Comments 11/09/2022 12:45 PM 11/10/2022 5:45 PM * Full Code Date Activated Date Inactivated Comments 01/19/2019 5:50 PM 01/19/2019 11:58 PM Care Teams Chinese Teacher Relationship Specialty Start Date End Date Julien Dewitt MD [address] [place] [address] PCP - General 01/15/17
--- OUTSIDE RECORDS SUMMARY | 2025-11-07 15:22 | XMS_ITS | Encounter Summary ---
Author Organization [facility] Address [address] [place] [address] Phone Care Team Providers Care Coach Cleaner Name Role Phone Julien Dewitt MD Primary [...] on file Legal Sex Male 2:06 AM FINANCIAL ASSISTANCE ADVISOR Gender Identity Not on file Sexual Orientation [...] on filedocumented in this encounter Care Teams Coach Cleaner Relationship Specialty Start Date End Date Julien Dewitt MD [address] [place] [address] PCP - General 01/15/17 documented as of this encounter
--- OUTSIDE RECORDS SUMMARY | 2025-11-07 15:22 | XMS_ITS | Encounter Summary ---
Author Organization [facility] Address [address] [place] [address] Phone Care Team Providers Care Mercury Cell Cleaner Name Role Phone Julien Dewitt MD Primary Care Provider Justin Santillan MD Primary Care Provider [phone]- [phone] Encounter Details Date Type Department Care Team (Latest Contact Info) Description 03/31/2016 Orders Only [facility] Scanning, Provider Social History Tobacco Use Types Packs/Day Years Used Date Smoking Tobacco: Never Assessed Sex and Gender Information Value Date Recorded Sex Assigned at Not on file Legal Sex Male 2:06 AM PROGRAMS MANAGER Gender Identity Not on file Sexual [...] on filedocumented in this encounter Care Teams Mercury Cell Cleaner Relationship Specialty Start Date End Date Julien Dewitt MD [address] [place] [address] PCP - General 01/15/17 Justin Santillan MD [address] [place] [address] PCP - General 04/02/14 01/14/17 documented as of this encounter
--- OUTSIDE RECORDS SUMMARY | 2025-11-07 15:22 | XMS_ITS | Encounter Summary ---
Author Organization [facility] Address [address] [place] [address] Phone Care Team Providers Care Presiding Judge Name Role Phone Julien Dewitt MD Primary Care Provider Encounter Details Date Type Department Care Team (Latest Contact Info) Description 05/01/2017 Orders Only [facility] Scanning, Provider Social History Tobacco Use Types Packs/Day Years Used Date Smoking Tobacco: Never Assessed Sex and Gender Information Value Date Recorded Sex Assigned at Not on file Legal Sex Male 2:06 AM FISHING VESSEL MATE Gender Identity Not on file Sexual Orientation [...] on filedocumented in this encounter Care Teams Presiding Judge Relationship Specialty Start Date End Date Julien Dewitt MD [address] [place] [address] PCP - General 01/15/17 documented as of this encounter
--- OUTSIDE RECORDS SUMMARY | 2025-11-07 15:22 | XMS_ITS | Encounter Summary ---
Author Organization [facility] Address [address] [place] [address] Phone Care Team Providers Care Fiberglass Technician Name Role Phone Julien Dewitt MD Primary [...] on file Legal Sex Male 2:06 AM REHAB CARE ASSISTANT Gender Identity Not on file Sexual Orientation [...] on filedocumented in this encounter Care Teams Fiberglass Technician Relationship Specialty Start Date End Date Julien Dewitt MD [address] [place] [address] PCP - General 01/15/17 documented as of this encounter
--- OUTSIDE RECORDS SUMMARY | 2025-11-07 15:22 | XMS_ITS | Encounter Summary ---
Author Organization [facility] Address [address] [place] [address] Phone Care Team Providers Care System Administration Advisor Name Role Phone Julien Dewitt MD Primary [...] on file Legal Sex Male 2:06 AM PHARMACY CARE COORDINATOR Gender Identity Not on file Sexual [...] on filedocumented in this encounter Care Teams System Administration Advisor Relationship Specialty Start Date End Date Julien Dewitt MD [address] [place], [place] [phone] PCP - General 01/15/17 documented as of this encounter
--- OUTSIDE RECORDS SUMMARY | 2025-11-07 15:23 | XMS_ITS | Encounter Summary ---
Author Organization [facility] Address [address] [place] [address] Phone Care Team Providers Care Creative Resource Manager Name Role Phone Julien Dewitt MD Primary Care Provider Justin Santillan MD Primary Care Provider [phone] Justin Santillan MD Primary Care Provider [phone] Encounter Details Date Type Department Care Team (Latest Contact Info) Description 03/25/2014 Orders Only [facility] Scanning, Provider Social History Tobacco Use Types Packs/Day Years Used Date Smoking Tobacco: Never Assessed Sex and Gender Information Value Date Recorded Sex Assigned at Not on file Legal Sex Male 2:06 AM FLOOR PRESS OPERATOR Gender Identity Not on file Sexual [...] on filedocumented in this encounter Care Teams Creative Resource Manager Relationship Specialty Start Date End Date Julien Dewitt MD [address] [place] [address] PCP - General 01/15/17 Justin Santillan MD [address] [place] [address] PCP - General 04/02/14 01/14/17 Justin Santillan MD [address] [place] [address] PCP - General 03/31/14 04/01/14 documented as of this encounter
--- NOTE | 2025-11-07 16:06 | ED.GENADULT ---
HPI - General Adult General Chief complaint: Altered Mental Status Stated complaint: AMS per family Time Seen by Provider: 11/07/25 15:01 History of Present Illness HPI narrative: 89-year-old male presents emergency department for evaluation for increased cough congestion altered mental status. Two weeks ago patient was diagnosed with RSV patient has had worsening symptoms since then. Family states patient has had increased confusion. Home had similar symptoms but did improve. Patient has been continuing to worse. Patient does have a productive cough at time of evaluation. Patient does have history of COPD emphysema Related Data Home Medications ?Medication ?Instructions ?Recorded ?Confirmed ?Last Taken ?Type furosemide 20 mg tablet 20 mg PO EVERY OTHER DAY 03/08/21 10/26/25 10/15/22 History psyllium husk (with sugar) 3 1 tbsp PO DAILY 02/04/22 10/26/25 10/15/22 History gram/7 gram oral powder (Daily Fiber (psyllium-sucrose)) Allergies Allergy/AdvReac Type Severity Reaction Status Date / Time sucralfate Allergy Unknown Hives Verified 10/26/25 15:21 Review of Systems Review of Systems: All systems reviewed & are unremarkable except as noted in HPI and below PMFSH Past Medical History Medical History Arthritis Old cerebrovascular accident (CVA) without late effect Carotid stenosis Dyslipidemia Bladder cancer BPH (benign prostatic hyperplasia) Atrial fibrillation Chronic obstructive pulmonary disease Essential hypertension Moderate persistent asthma without complication EROS (obstructive sleep apnea) Surgical History Surgical History History of right-sided carotid endarterectomy H/O nasal polypectomy Cataract extraction status History of nasal surgery x3. Two surgeries at [facility], one at [facility]. H/O transurethral destruction of bladder lesion Follows with Dr Smith. TURBT removed 3 tumors per patient. Had cysto 2months ago by Dr Smith. Family History Family History Mother Cerebrovascular accident Father Patient's father is Family history of Alzheimer's disease Alcohol abuse Social History Social History Social History: Patient lives at home with his . He drinks about 1 beer per day. He smoked 1ppd cigarettes x 30 years and quit smoking in the . No substance use. His PCP is Dr Julien Dewitt. He designates his , Lashanda, as his surrogate decision maker. He wishes to be full code status, but would not wish to be kept on life support for a long period of time. He has Four children Code status full code. Smoking packs per day: 1 Smoking cigarettes per day: 20.0 Years smoked: 25 Smoking pack-years: 25.00 Smoking status: Former smoker Tobacco type: cigarettes and smokeless tobacco Smokeless tobacco user: chewing tobacco Second hand tobacco smoke exposure: Yes Smoking end date: 12/10/76 Alcohol intake: current Drinks per week: 4 Substance use: never Substance use type: does not use Lack of Transportation: No Lack of Food: Never True Current Housing: I Have Housing Concerned About Future Housing: No Difficulty Paying Gas/Electric Bills: No Difficulty Paying for Meds: No Currently Unemployed: No Education: High School Diploma/GED Difficulty w/ Childcare or Family Care: No Living arrangements: with family Additional living arrangements comments: - LASHANDA Occupation/Education: retired Gender identity (if verbalized by the patient): Male Spiritual care concerns: No Agree to blood products: Yes Exam Narrative: APPEARANCE: Well appearing, no pain, no distress, well-nourished. HEAD: normocephalic, atraumatic. EYES: PERRLA/EOMI, conjunctivae clear. NOSE: Normal no drainage EARS:TMS clear with good light reflex. THROAT: Pharynx clear, no exudate. NECK: Supple. No adenopathy, no masses. RESPIRATORY: Congested lung sounds bilaterally CARDIOVASCULAR: Regular rate and rhythm without murmurs rubs or gallops. ABDOMINAL: Soft, nontender, nondistended, normal bowel sounds MUSCULOSKELETAL: Moves all extremities. Strength/ROM intact, No edema, No calf tenderness. NEURO: Alert. Cranial nerves II through XII intact. Good gait. Good coordination SKIN: Warm, dry. Normal Color Course Vital Signs Vital signs: Vital Signs Temperature 97.5 F L 11/07/25 14:23 Pulse Rate 80 11/07/25 14:23 Respiratory Rate 18 11/07/25 14:23 Blood Pressure 113/56 L 11/07/25 14:23 Pulse Oximetry 95 11/07/25 14:23 Oxygen Delivery Room Air 11/07/25 14:23 Temperature 97.5 F L 11/07/25 14:23 Pulse Rate 67 11/07/25 19:31 Respiratory Rate 19 11/07/25 19:29 Blood Pressure 105/51 L 11/07/25 19:29 Pulse Oximetry 96 11/07/25 19:29 Oxygen Delivery Room Air 11/07/25 15:24 [facility] Narrative Medical decision making narrative: 89-year-old male presents emergency department for evaluation for worsening shortness of breath generalized weakness and increased confusion. Patient is currently afebrile leukocytosis a stable hemoglobin. Patient was negative for COVID influenza RSV. Chest x-ray shows no acute cardiopulmonary abnormality. CT scan did show emphysematous lungs. I do have high clinical concern for superinfection after RSV. Patient is not at his normal baseline. Patient was started on antibiotics and admitted. Patient is 89 years old does live at home with his and she is unable to care for him and this weekend state. Case was discussed with hospitalist patient was stable at time of admission. Differential Diagnosis Differential Diagnosis: COVID, RSV, influenza, CHF, COPD, pneumonia, failure to thrive Lab Data [facility] Lab Attestation statement: I personally reviewed the patient's lab results. 11/07/25 14:55 11/07/25 14:55 Labs: Lab Results 11/07/25 11/07/25 11/07/25 Range/Units 14:55 16:02 16:03 WBC 7.9 (4.5-10.0) K/mm3 RBC 4.27 L (4.6-6.20) M/mm3 Hgb 13.7 L (14.0-18.0) g/dL Hct 39.9 L (42.0-52.0) % MCV 93.4 (80-100) fl MCH 32.1 (26-34) pg MCHC 34.3 (32-36) g/dl RDW 12.9 (11.5-14.5) % Plt Count 159 (150-375) k/mm3 MPV 9.5 (7.4-10.4) fl Immature Gran % (Auto) 0.9 H (0-0.5) % Neut % (Auto) 69.0 (45.5-73.1) % Lymph % (Auto) 21.7 (18.3-44.2) % [place] % (Auto) 7.0 (2.6-8.5) % Eos % (Auto) 1.0 (0-4.4) % Baso % (Auto) 0.4 (0.2-1.2) % Lymph # (Auto) 1.71 (0.9-3.2) K/mm3 [place] # (Auto) 0.6 (0.1-0.6) K/mm3 Eos # (Auto) 0.1 (0-0.3) K/mm3 Baso # (Auto) 0.0 (0.0-0.1) K/mm3 Abs Immat Gran (auto) 0.07 H (0.00-0.031) K/mm3 Absolute Neuts (auto) 5.4 (1.3-6.7) K/mm3 Absolute Nucleated RBC 0.000 (0.0-0.012) K/mm3 Nucleated RBC % 0.0 (0.0-0.2) % PT 34.3 H (11.1-14.7) Seconds INR 3.6 APTT 38.4 H (22.3-36.8) Seconds Sodium 133 L (137-145) mmol/L Potassium 3.9 (3.4-5.0) mmol/L Chloride 102 (98-107) mmol/L Carbon Dioxide 28 (22-30) mmol/L Anion Gap 3 L (4-12) mmol/L BUN 20 (9-20) mg/dL Creatinine 0.88 (0.7-1.3) mg/dL Estim Creat Clear Calc Not Reportable Estimated GFR > 60 (59 - ) Glucose 95 (65-110) mg/dL Calcium 8.3 L (8.4-10.2) mg/dL Total Bilirubin 1.1 (0.2-1.3) mg/dL AST 28 (17-59) U/L ALT 44 (6-50) U/L Alkaline Phosphatase 101 (38-126) U/L Total Protein 5.8 L (6.3-8.2) g/dL Albumin 3.1 L (3.5-5.1) g/dL Urine Color Yellow (Yellow) Urine Appearance Cloudy H (Clear) Urine pH 5.5 (5.0-9.0) Ur Specific [place] 1.015 (1.001-1.035) Urine Protein Negative (Negative) mg/dL Urine Glucose (UA) Negative (Negative) mg/dL Urine Ketones Trace H (Negative) mg/dL Ur Blood (Man) 2+ H (Negative) Urine Nitrate Negative (Negative) Urine Bilirubin Negative (Negative) Urine Urobilinogen 1.0 (<2.0) mg/dL Leukocyte Esterase Rfl Negative (Negative) FIDEL/UL Urine RBC 11-20 H (0-2) /hpf Urine WBC 0-5 (0-3) /hpf Ur Squamous Epith Cells None seen (Few) /hpf Urine Bacteria None seen /hpf Urine Casts 0-2 Influenza A (RT-PCR) Negative (Negative) Influenza B (RT-PCR) Negative (Negative) RSV (RT-PCR) Negative (Negative) SARS-CoV-2 RNA (RT-PCR) Negative (Negative) Imaging Data Radiologist's impression: ITS Impressions Chest X-Ray 11/07/25 16:43 IMPRESSION: 1. No acute findings. Emphysematous lungs. Chest CTA 11/07/25 18:24 IMPRESSION: 1. No evidence of pulmonary emboli. Thoracic aorta shows no acute findings. 2. Emphysematous lungs. Coronary artery calcification of left main, anterior descending and right coronary arteries. 3. Cardiomegaly with left atrial, right ventricular and right atrial enlargement with pericardial effusion. Dilated inferior vena cava and hepatic veins suggestive of elevated right cardiac pressures. 4. Calcific atherosclerotic changes at the origin of renal arteries. Discharge Plan Discharge Clinical Impression: Adult failure to thrive, Pneumonia Patient Disposition: Still a Patient Condition: Serious Patient Language: Bulgarian Prescriptions: No Action prednisone 10 mg tablet 10 mg PO DAILY Qty: 30 0RF Rx Instructions: Take PO 4 tabs daily x3 days, 3 tabs daily x3 days, 2 tabs daily x3 days, 1 tab daily x3 days benzonatate 100 mg capsule 200 mg PO TID PRN (Reason: cough) Qty: 60 0RF fluticasone propionate 50 mcg/actuation spray,suspension 1 spray intranasal DAILY Qty: 16 0RF Rx Instructions: administer into each nostril cyclobenzaprine 10 mg tablet 10 mg PO TID PRN (Reason: muscle spasm) Qty: 30 0RF furosemide 20 mg tablet 20 mg PO EVERY OTHER DAY Daily Fiber (psyllium-sucrose) 3 gram/7 gram Powder 1 tbsp PO DAILY albuterol sulfate 90 mcg/actuation HFA aerosol inhaler 2 puff inhalation Q4H PRN (Reason: Dyspnea) 30 Days Qty: 1 0RF Rx Instructions: INHALE 2 PUFFS BY MOUTH EVERY 4 TO 6 HOURS NEEDED Trelegy Ellipta 100-62.5-25 mcg blister with device 1 inh INHALATION DAILY Qty: 60 11RF albuterol sulfate 2.5 mg /3 mL (0.083 %) solution for nebulization See Rx Instructions .ROUTE .COMPLEX Qty: 360 2RF Dose Instruction: USE 1 VIAL IN NEBULIZER EVERY 4 TO 6 HOURS NEEDED FOR SHORTNESS OF BREATH OR WHEEZING Rx Instructions: USE 1 VIAL IN NEBULIZER EVERY 6 HOURS NEEDED FOR SHORTNESS OF BREATH OR WHEEZING montelukast 10 mg tablet 10 mg PO DAILY Qty: 90 2RF doxazosin 4 mg tablet 4 mg PO DAILY Qty: 90 2RF Rx Instructions: TAKE 1 TABLET BY MOUTH EVERY DAY diltiazem HCl [DILT-XR] 120 mg capsule,ext.rel 24h degradable See Rx Instructions .ROUTE .COMPLEX Qty: 90 2RF Dose Instruction: TAKE 1 CAPSULE(120 MG) BY MOUTH DAILY Rx Instructions: TAKE 1 CAPSULE(120 MG) BY MOUTH DAILY Xarelto 20 mg tablet See Rx Instructions .ROUTE .COMPLEX Qty: 90 0RF Dose Instruction: TAKE 1 TABLET BY MOUTH DAILY Rx Instructions: TAKE 1 TABLET BY MOUTH DAILY rosuvastatin 10 mg tablet See Rx Instructions .ROUTE .COMPLEX Qty: 90 3RF Dose Instruction: TAKE 1 TABLET BY MOUTH DAILY Rx Instructions: TAKE 1 TABLET BY MOUTH DAILY Follow-up/Referrals: Julien Dewitt MD [Primary Care Provider, Family Practice]
[2025-11-07 16:15] LABS: Add Urine Microscopic? YES; Appearance Urine Cloudy (Clear); Glucose Urine UA Negative (Negative); Leukocyte Esterase Ur Negative LEU/UL (Negative); Nitrate Urine Negative (Negative); Non Pathogenic Casts 0-2; Specific Grav Ur 1.015 (1.001-1.035)
[2025-11-07 16:45] LABS: Influenza A QL RT-PCR Negative (Negative); Influenza B QL RT-PCR Negative (Negative); RSV RNA, RT-PCR Negative (Negative); SARS-CoV-2 RNA PCR Negative (Negative)
[2025-11-07] MEDS: ONDANSETRON INJ 4 MG/2 ML VIAL IV PUSH (18:07)
[2025-11-07] MEDS: KETOROLAC 30 MG/ML VIAL (*BKC) IV PUSH (18:08)
[2025-11-07] MEDS: cefTRIAXone 1 GM in SODIUM CHLORIDE 0.9% IV 50 ML 100 ML IVPB (19:49)
[2025-11-07] MEDS: AZITHROMYCIN IV 500 MG in SODIUM CHLORIDE 0.9% IV 250 ML IVPB (20:26)
--- NOTE | 2025-11-07 20:28 | WPCEDHO ---
ED Hand Off Checklist All vitals saved: yes IV Site documented: yes All med administrations documented: yes Triage Note Triage Note Coming from EMS, family stating 11/07/25 14:23 he has been altered for two weeks , positive for RSV on 10/26, MD put him on prednisone Family states he has been sick since 10/26, struggling with breathing, having difficulty walking pain in back and confusion 120/60, BG 113 Allergies sucralfate Allergy (Unknown, Verified 10/26/25 15:21) Hives Family History (Last Reviewed 11/07/25 @ 20:05 by Jackelin Valle RN) Mother Cerebrovascular accident Father Patient's father is Family history of Alzheimer's disease Alcohol abuse Administered/Completed Medications Discontinued Medications Ceftriaxone Sodium 1 gm/ (Sodium Chloride) 50 mls @ 100 mls/hr IVPB ONCE STA Stop: 11/07/25 19:02 Last Infusion: 11/07/25 20:25 Dose: Infused Documented By: Admin: 11/07/25 19:49 Dose: 100 mls/hr Documented By: KRISTINA Azithromycin 500 mg/ Sodium (Chloride) 250 mls @ 250 mls/hr IVPB ONCE STA Stop: 11/07/25 19:32 Last Admin: 11/07/25 20:26 Dose: 250 mls/hr Documented By: HEIDI Ketorolac Tromethamine (Ketorolac 30 Mg/Ml Vial (*Bkc)) 30 mg IV PUSH ONCE STA Stop: 11/07/25 17:56 Last Admin: 11/07/25 18:08 Dose: 30 mg Documented By: ELENA Ondansetron HCl (Ondansetron Inj 4 Mg/2 Ml Vial) 4 mg IV PUSH ONCE STA Stop: 11/07/25 18:06 Last Admin: 11/07/25 18:07 Dose: 4 mg Documented By: ELENA Ondansetron HCl (Ondansetron Inj 4 Mg/2 Ml Vial) Confirm Administered Dose 4 mg .ROUTE .STK-MED ONE Stop: 11/07/25 18:06 Last Admin: 11/07/25 18:11 Dose: Not Given Documented By: ELENA Non-Admin Reason: Duplicate Dose Interventions/Assessments Cardiac Monitoring Start: 11/07/25 14:23 Freq: Status: Active Protocol: Document 11/07/25 19:31 ACO (Rec: 11/07/25 19:31 ACO [id number]) Document Scanner Assessment EKG Rythm Sinus Rhythm Document Scanner Yes Applied Pulse Rate (60-100) 67 IV / Saline Lock, Insert Start: 11/07/25 14:47 Freq: STAT Status: Complete Protocol: Document 11/07/25 15:24 ELB (Rec: 11/07/25 15:25 ELB [id number]) IV Assessment Peripheral Access Right Forearm IV Catheter Access Initiated IV Insertion Date 11/07/25 IV Insertion Time 15:24 Catheter Gauge 18 IV Insertion 1 Attempts Ultrasound Used for No Placement IV Site Assessment WNL IV Care and WNL Maintenance PA: Cardiovascular Assessment Start: 11/07/25 14:23 Freq: Status: Active Protocol: Document 11/07/25 15:24 ELB (Rec: 11/07/25 15:25 ELB [id number]) Cardiovascular Assessment Cardiovascular Dyspnea Symptoms Heart Sounds Normal Skin Description Normal Color Jugular Vein None Distention Chest Pain Assessment Description and Dyspnea Symptoms PA: Neurological Assessment Start: 11/07/25 14:23 Freq: Status: Active Protocol: Document 11/07/25 15:24 ELB (Rec: 11/07/25 15:25 ELB [id number]) Neurological Assessment Level of Alert,Awake Consciousness Behavior Appropriate,Cooperative Patient Able to Comprehend Comprehension Memory Description Intact Arousable to Verbal PA: Respiratory Assessment Start: 11/07/25 14:23 Freq: Status: Active Protocol: Document 11/07/25 15:24 ELB (Rec: 11/07/25 15:25 ELB [id number]) Respiratory Assessment Symptoms Cough,Difficulty Clearing Secretions,Shortness of Breath at Rest,Shortness of Breath With Exertion Adult Capillary Normal/Less than 2 Seconds Refill Effort Normal Pattern Regular Depth Normal Chest Expansion Symmetrical Throughout Phase Inspiratory & Expiratory Lung Sounds Clear Cough Frequency Intermittent Cough Description Productive Oxygen Delivery Oxygen Delivery Room Air Pulse Oximetry (90- 98 100) Last Vital Signs Temperature 97.5 F L 11/07/25 14:23 Pulse Rate 71 11/07/25 20:26 Respiratory Rate 15 11/07/25 20:26 Pulse Oximetry 99 11/07/25 20:26 Blood Pressure 100/54 L 11/07/25 20:26 Blood Pressure Mean 69 11/07/25 20:26 Oxygen Delivery Room Air 11/07/25 15:24 Weight 81.8 kg 11/07/25 19:51 Last Result - Abnormals Only RBC 4.27 M/mm3 (4.6-6.20) L 11/07/25 14:55 Hgb 13.7 g/dL (14.0-18.0) L 11/07/25 14:55 Hct 39.9 % (42.0-52.0) L 11/07/25 14:55 Immature Gran % (Auto) 0.9 % (0-0.5) H 11/07/25 14:55 Abs Immat Gran (auto) 0.07 K/mm3 (0.00-0.031) H 11/07/25 14:55 PT 34.3 Seconds (11.1-14.7) H 11/07/25 14:55 APTT 38.4 Seconds (22.3-36.8) H 11/07/25 14:55 Sodium 133 mmol/L (137-145) L 11/07/25 14:55 Anion Gap 3 mmol/L (4-12) L 11/07/25 14:55 Calcium 8.3 mg/dL (8.4-10.2) L 11/07/25 14:55 Total Protein 5.8 g/dL (6.3-8.2) L 11/07/25 14:55 Albumin 3.1 g/dL (3.5-5.1) L 11/07/25 14:55 Urine Appearance Cloudy (Clear) H 11/07/25 16:03 Urine Ketones Trace mg/dL (Negative) H 11/07/25 16:03 Ur Blood (Man) 2+ (Negative) H 11/07/25 16:03 Urine RBC 11-20 /hpf (0-2) H 11/07/25 16:03 Most Recent Suicide Severity Rating Suicide Severity Rating NO RISK INDICATED 11/07/25 14:23
--- NOTE | 2025-11-07 20:47 | PM.IMHP2 ---
H&P: HPI History of Present Illness Date/Time: 11/07/25 20:47 Chief Complaint: Altered mental status Narrative: This is an 89-year-old male patient who has a history of an old CVA, carotid stenosis, atrial fibrillation and COPD. The patient came to the emergency room for increased cough, congestion and altered mental status. The patient was diagnosed with RSV approximately 2 weeks ago and had been on steroids. The and daughter at the bedside are offering history on the patient. They stated that he has had increased confusion. Patient has no improvement continues to get worse. His white count is normal. His H&H is 13.7 and 39.9 which is only slightly low. Sodium was 133. Calcium is slightly low at 8.3. Urine has trace ketones 2+ blood, 11-20 rbc's and no bacteria. The patient is negative for influenza a, influenza B, RSV, and COVID. The patient was started on Rocephin and a Zithromax sent in the emergency room. He was also given Zofran and Toradol in the ER as well. The patient is being admitted to observation status on the date of service of 11/07/2025. Review of Systems Review of Systems: Family providing history S the patient is a poor historian ROS unobtainable: Yes unobtainable due to medical condition Constitutional: Constitutional: Reports as per HPI and Reports no additional constitutional complaints Eyes: Eyes: Reports as per HPI and Reports no additional eye complaints ENT: Reports system reviewed and no additional complaints, except as documented and Reports Normal hearing present Cardiovascular: Cardiovascular: Reports no additional cardiovascular complaints Respiratory: Respiratory: Reports as per HPI and Reports no additional respiratory complaints Gastrointestinal: Gastrointestinal: Reports as per HPI and Reports no additional gastrointestinal complaints Musculoskeletal: Musculoskeletal: Reports no additional musculoskeletal complaints Integumentary/Breasts: Skin/Breast: Reports system reviewed and no additional complaints, except as docu Neurologic: Reports system reviewed and no additional complaints, except as documented and Reports Normal hearing present Psychiatric: Psychiatric: Reports no additional psychiatric complaints and Reports as per HPI Hematologic/Lymphatic: Hematologic/Lymphatic: Reports no additional hematologic/lymphatic complaints Allergic/Immunologic: Allergic/Immunologic: Reports no additional allergic/immunologic complaints [facility], [facility] Past Medical History Medical History (Updated 11/08/25 @ 00:28 by Yenni Vides, SINDHU) History of cardioversion Arthritis Old cerebrovascular accident (CVA) without late effect Carotid stenosis Dyslipidemia Bladder cancer Bladder tumors removed BPH (benign prostatic hyperplasia) Atrial fibrillation Chronic obstructive pulmonary disease Essential hypertension Moderate persistent asthma without complication EROS (obstructive sleep apnea) Non compliant with CPAP Surgical History Surgical History History of right-sided carotid endarterectomy H/O nasal polypectomy Cataract extraction status History of nasal surgery x3. Two surgeries at [facility], one at [facility]. H/O transurethral destruction of bladder lesion Follows with Dr Smith. TURBT removed 3 tumors per patient. Had cysto 2months ago by Dr Smith. Family History Family History Mother Cerebrovascular accident Father Patient's father is Family history of Alzheimer's disease Alcohol abuse Social History Social History (Updated 11/08/25 @ 00:15 by Yenni Vides APRN) Social History: Patient lives at home with his . He drinks about 1 beer per day. He smoked 1ppd cigarettes x 30 years and quit smoking in the . No substance use. His PCP is Dr Julien Dewitt. He designates his , Lashanda, as his surrogate decision maker. He wishes to be full code status, but would not wish to be kept on life support for a long period of time. He has Four children Code status full code. However the patient does not want to be trached are live on a ventilator. Smoking packs per day: 1 Smoking cigarettes per day: 20.0 Years smoked: 25 Smoking pack-years: 25.00 Smoking status: Former smoker Tobacco type: cigarettes and smokeless tobacco Smokeless tobacco user: chewing tobacco Second hand tobacco smoke exposure: Yes Smoking end date: 12/10/76 Alcohol intake: current Drinks per week: 4 Substance use: never Substance use type: does not use Lack of Transportation: No Lack of Food: Never True Current Housing: I Have Housing Concerned About Future Housing: No Difficulty Paying Gas/Electric Bills: No Difficulty Paying for Meds: No Currently Unemployed: No Education: High School Diploma/GED Difficulty w/ Childcare or Family Care: No Living arrangements: with family Additional living arrangements comments: - LASHANDA Occupation/Education: retired Gender identity (if verbalized by the patient): Male Spiritual care concerns: No Agree to blood products: Yes Meds Home Medications and Allergies Home Medications ?Medication ?Instructions ?Recorded ?Confirmed ?Type furosemide 20 mg tablet 20 mg PO EVERY OTHER DAY 03/08/21 11/07/25 History psyllium husk (with sugar) 3 1 tbsp PO DAILY 02/04/22 11/07/25 History gram/7 gram oral powder (Daily Fiber (psyllium-sucrose)) albuterol sulfate 90 mcg/actuation 2 puff inhalation Q4H PRN Dyspnea 02/06/22 11/07/25 Rx aerosol inhaler 30 days #1 g fluticasone fur. 100 mcg-umeclid 1 inh inhalation DAILY #60 ea 03/20/24 11/07/25 Rx 62.5 mcg-vilant 25 mcg inhalat.powder (Trelegy Ellipta) albuterol sulfate 2.5 mg/3 mL See Rx Instructions .Route 11/30/24 11/07/25 Rx (0.083 %) solution for nebulization .COMPLEX #360 mL montelukast 10 mg tablet 10 mg PO DAILY #90 tabs 02/21/25 11/07/25 Rx doxazosin 4 mg tablet 4 mg PO DAILY #90 tabs 07/05/25 11/07/25 Rx diltiazem HCl 120 mg See Rx Instructions .Route 07/26/25 11/07/25 Rx capsule,extended release 24 hr, .COMPLEX #90 caps controlled (DILT-XR) rivaroxaban 20 mg tablet (Xarelto) See Rx Instructions .Route 09/05/25 11/07/25 Rx .COMPLEX #90 tabs rosuvastatin 10 mg tablet See Rx Instructions .Route 10/11/25 11/07/25 Rx .COMPLEX #90 tabs fluticasone propionate 50 1 spray intranasal DAILY #16 grams 10/26/25 11/07/25 Rx mcg/actuation nasal spray,suspension Allergies Allergy/AdvReac Type Severity Reaction Status Date / Time sucralfate Allergy Unknown Hives Verified 11/07/25 21:19 Vital Signs Vital Signs - 24 hr 11/07/25 14:23 11/07/25 14:43 11/07/25 14:45 Temperature 97.5 F L Pulse Rate 80 64 55 L Respiratory Rate 18 18 16 Blood Pressure 113/56 L Pulse Oximetry 95 97 98 Oxygen Delivery Room Air 11/07/25 14:46 11/07/25 15:01 11/07/25 15:02 Temperature Pulse Rate 58 L 66 59 L Respiratory Rate 18 19 15 Blood Pressure 121/70 129/53 L Pulse Oximetry 98 97 97 Oxygen Delivery 11/07/25 15:16 11/07/25 15:17 11/07/25 15:24 Temperature Pulse Rate 64 59 L Respiratory Rate 17 16 Blood Pressure 119/60 Pulse Oximetry 99 98 98 Oxygen Delivery Room Air 11/07/25 15:58 11/07/25 16:00 11/07/25 16:03 Temperature Pulse Rate 65 71 65 Respiratory Rate 17 15 19 Blood Pressure 99/52 L Pulse Oximetry 94 94 95 Oxygen Delivery 11/07/25 16:16 11/07/25 17:00 11/07/25 19:29 Temperature Pulse Rate 71 68 70 Respiratory Rate 22 H 17 19 Blood Pressure 97/57 L 105/51 L Pulse Oximetry 96 96 96 Oxygen Delivery 11/07/25 19:31 11/07/25 20:26 Temperature 98.2 F Pulse Rate 67 71 Respiratory Rate 15 Blood Pressure 100/54 L Pulse Oximetry 99 Oxygen Delivery Exam Const: General: cooperative, healthy appearing, comfortable, no acute distress, well developed, awake, Physically active, average body habitus and well nourished Nutritional Appearance: average body habitus and well nourished Orientation/consciousness: oriented to person HENMT: Head: normal to inspection, No palpable skull fracture present, normocephalic, atraumatic and abrasion Eyes: General: appearance normal, both eyes and all related structures Alignment and Position: alignment normal Periorbital: periorbital findings normal Neck: Neck: normal visual inspection, full ROM, no lymphadenopathy and trachea midline Chest: Chest palpation & inspection: normal inspection of the chest Resp: Effort & Inspection: normal respiratory effort Auscultation: diminished lung sounds diffuse Cardio: Palpation: normal PMI Rate: regular rate Rhythm: regular rhythm Heart sounds: S1 normal heart sound present and S2 normal heart sound present Peripheral pulses: Peripheral pulses 2+ throughout GI: Inspection: normal to inspection Percussion: Yes normal to percussion Auscultation: normal bowel sounds Rectal Exam: deferred : General: Yes no CVA tenderness Back/Spine/Pelvis: Back: no CVA tenderness Cervical Spine: cervical ROM normal Skin: General skin exam: normal color Lesions: no lesions Rashes: no rashes Trauma: no lacerations or abrasions Wounds: no wounds Hair: normal Nails: normal Neuro: General: oriented to person Cranial nerves: Yes Equal, round and reactive pupils present Speech: normal speech Gait exam (Neuro): Normal gait present Extrem: General: normal to inspection Right upper extremity: normal to inspection and shoulder/upper arm Left upper extremity: normal to inspection and shoulder/upper arm Right lower extremity: normal to inspection Left lower extremity: normal to inspection Psych: Appearance: grossly normal Mental Status: mental status grossly normal Speech and movement: Normal speech and movement present Affect: normal affect Attitude: cooperative Thought process: Normal thought process present Thought content: Yes Normal thought content present Results Labs Labs: Short CBC 11/07/25 Range/Units 14:55 WBC 7.9 (4.5-10.0) K/mm3 Hgb 13.7 L (14.0-18.0) g/dL Hct 39.9 L (42.0-52.0) % Plt Count 159 (150-375) k/mm3 BMP 11/07/25 14:55 Sodium 133 L Potassium 3.9 Chloride 102 Carbon Dioxide 28 BUN 20 Creatinine 0.88 Glucose 95 Calcium 8.3 L Liver Function 11/07/25 Range/Units 14:55 Total Bilirubin 1.1 (0.2-1.3) mg/dL AST 28 (17-59) U/L ALT 44 (6-50) U/L Alkaline Phosphatase 101 (38-126) U/L Albumin 3.1 L (3.5-5.1) g/dL Urine 11/07/25 Range/Units 16:03 Urine Color Yellow (Yellow) Urine Appearance Cloudy H (Clear) Urine pH 5.5 (5.0-9.0) Ur Specific Enders 1.015 (1.001-1.035) Urine Protein Negative (Negative) mg/dL Urine Glucose (UA) Negative (Negative) mg/dL ECG Interpretation: 59 MN 0 QRSd 102 QT 442 QTc 440 --Imbler-- P 0 QRS 81 T 93 ATRIAL FIBRILLATION WITH SLOW VENTRICULAR RESPONSE MODERATE ST DEPRESSION [0.05+ mV ST DEPRESSION] No previous ECG available for comparison Imaging CT scan - head: Radiologist's impression: ITS Impressions Chest X-Ray 11/07/25 16:43 IMPRESSION: 1. No acute findings. Emphysematous lungs. Chest CTA 11/07/25 18:24 IMPRESSION: 1. No evidence of pulmonary emboli. Thoracic aorta shows no acute findings. 2. Emphysematous lungs. Coronary artery calcification of left main, anterior descending and right coronary arteries. 3. Cardiomegaly with left atrial, right ventricular and right atrial enlargement with pericardial effusion. Dilated inferior vena cava and hepatic veins suggestive of elevated right cardiac pressures. 4. Calcific atherosclerotic changes at the origin of renal arteries. Quality VTE Prophylaxis VTE prophylaxis: pharmacologic ordered Assessment and Plan Assessment and plan (1) Chronic obstructive pulmonary disease: Qualifiers: COPD type: unspecified COPD Qualified Code(s): J44.9 - Chronic obstructive pulmonary disease, unspecified Code(s): J44.9 - Chronic obstructive pulmonary disease, unspecified Status: Chronic Assessment and Plan: -the patient was recently on steroids. -his O2 saturation is 92% on room air. -his lung sounds diminished. -continue with Mucinex -continue with DuoNebs. -the patient was empirically started on azithromycin and Rocephin. -sputum and blood cultures are pending. -may consider pulmonary consult. -Chest CTA 11/07/25 18:24 IMPRESSION: 1. No evidence of pulmonary emboli. Thoracic aorta shows no acute findings. 2. Emphysematous lungs. Coronary artery calcification of left main, anterior descending and right coronary arteries. 3. Cardiomegaly with left atrial, right ventricular and right atrial enlargement with pericardial effusion. Dilated inferior vena cava and hepatic veins suggestive of elevated right cardiac pressures. 4. Calcific atherosclerotic changes at the origin of renal arteries. -continue with Singulair (2) Atrial fibrillation: Qualifiers: Atrial fibrillation type: longstanding persistent Qualified Code(s): I48.11 - Longstanding persistent atrial fibrillation Code(s): I48.91 - Unspecified atrial fibrillation Status: Chronic Assessment and Plan: The patient is in AFib. He has had a past history of having a cardioversion in the past. -rate is controlled at this time -continue with diltiazem -continue with Xarelto (3) BPH (benign prostatic hyperplasia): Qualifiers: Lower urinary tract symptom presence: unspecified whether lower urinary tract symptoms present Qualified Code(s): N40.0 - Benign prostatic hyperplasia without lower urinary tract symptoms Code(s): N40.0 - Benign prostatic hyperplasia without lower urinary tract symptoms Status: Acute Assessment and Plan: -continue doxazosin (4) Essential hypertension: Code(s): I10 - Essential (primary) hypertension Status: Chronic Assessment and Plan: -continue with Lasix, doxazosin, Cardizem, and Lasix (5) Dyslipidemia: Code(s): E78.5 - Hyperlipidemia, unspecified Status: Chronic Assessment and Plan: -continue with rosuvastatin (6) Pericardial effusion: Code(s): I31.39 - Other pericardial effusion (noninflammatory) Status: Acute Assessment and Plan: -cardiology has been consulted. -echo has been ordered. -Chest CTA 11/07/25 18:24 IMPRESSION: 1. No evidence of pulmonary emboli. Thoracic aorta shows no acute findings. 2. Emphysematous lungs. Coronary artery calcification of left main, anterior descending and right coronary arteries. 3. Cardiomegaly with left atrial, right ventricular and right atrial enlargement with pericardial effusion. Dilated inferior vena cava and hepatic veins suggestive of elevated right cardiac pressures. 4. Calcific atherosclerotic changes at the origin of renal arteries. -continue with Lasix -the patient recently had a viral infection RSV which could have caused the pericardial effusion.
--- NOTE | 2025-11-07 21:43 | ADMGEN ---
This patient, Edmundo English, was admitted to 2 Medical Room 241-. Patient/family oriented to hospital policies and general routines including ID bracelet, bed and alarms, visiting hours, pain management, procedures, bathroom and other care routines, personal items, smoking policy, room service/diet, and visiting hours. Information on how to activate the Rapid Response Team has been discussed. Patient/Family are encouraged to report perceived risks to care and to ask questions if they do not understand what they are told or what they should do.
[2025-11-08] VITALS (17 sets, daily range): BP systolic 100–138; BP diastolic 48–82; PULSE 61–108; RESP 16–20; TEMP 36.4; O2SAT 91–94
--- NOTE | 2025-11-08 | ECHO_ITS ---
Patient Info Name: Edmundo English Age: 89 years : 1935 Gender: Male Ht: 68 in Wt: 162 lbs BSA: 1.89 m2 HR: 75 bpm BP: 122 / 67 mmHg Technical Quality: Good Exam Date: 11/08/2025 10:01 AM Patient Status: I Admit Date: 11/08/2025 Exam Type: CA echo doppler color flow Complete two-dimensional, color flow and Doppler transthoracic echocardiogram is performed. Staff Referring Physician: Yenni Vides CREDIT RISK REVIEW OFFICER [employer] Supervisor: Edmundo Soto III Attending Provider: Kate Brambila Summary 1. Complete two-dimensional, color flow and Doppler transthoracic echocardiogram is performed. 2. Left ventricular systolic function is normal, estimated at 60-65. 3. Right ventricular chamber dimension is mildly enlarged. 4. Right ventricular systolic function is normal. 5. Left atrial chamber dimension is mildly enlarged. 6. Right atrial chamber dimension is moderately enlarged. Left Ventricle Left ventricular chamber dimension is normal. Left ventricular systolic function is normal, estimated at 60-65. There is no increased left ventricular wall thickness. Left ventricular septal wall motion is normal. The left ventricular diastolic function is abnormal. Right Ventricle Right ventricular chamber dimension is mildly enlarged. Right ventricular systolic function is normal. Left Atria Left atrial chamber dimension is mildly enlarged. Right Atria Right atrial chamber dimension is moderately enlarged. Aortic Valve The aortic valve is trileaflet. There is no aortic valve sclerosis. There is no aortic valve stenosis. There is no aortic valve regurgitation. There is mild aortic valve calcification. Pulmonic Valve The pulmonic valve is normal. There is no pulmonic valve stenosis. There is no pulmonic regurgitation. Mitral Valve The mitral valve has normal leaflets. There is no mitral valve stenosis. There is no mitral valve regurgitation. Tricuspid Valve The tricuspid valve leaflets are normal. There is no significant tricuspid valve stenosis. There is no tricuspid valve regurgitation. Pericardium/Pleural The pericardium appears normal. There is small pericardial effusion. Inferior Vena Cava Normal inferior vena cava with >50% collapse upon inspiration consistent with normal right atrial pressure, 5 mmHg. Aorta The aortic root size at the sinus of Valsalva is normal. The prox ascending aorta size is normal. Left Ventricular Outflow Tract Name Value Normal LVOT 2D LVOT Diameter 2.2 cm LVOT Doppler LVOT Peak Velocity 104 cm/s LVOT Peak Gradient 4 mmHg LVOT Mean Gradient 2 mmHg LVOT VTI 16 cm LVOT VTI/AV VTI Ratio 0.7 LVOT Stroke Volume 60 ml LVOT CO 6.8 l/min LVOT CI 3.6 l/min/m2 Pulmonic Valve Name Value Normal PV Doppler PV Peak Velocity 100 cm/s PV Peak Gradient 4 mmHg PV Mean Gradient 2 mmHg Mitral Valve Name Value Normal MV Doppler MV Peak Gradient 4 mmHg MV Mean Gradient 2 mmHg MV Area (Cont Eq VTI) 3.3 cm2 MV Diastolic Function MV E Peak Velocity 92 cm/s MV Decel Time (PW) 160 ms MV Annular TDI MV E/e' (Septal) 10.4 MV E/e' (Lateral) 9.1 MV E/e' (Average) 9.8 Tricuspid Valve Name Value Normal Estimated PAP/RSVP RA Pressure 5 mmHg <=5 TV Annular TDI TV Lateral Jackelin s' Velocity 14.6 cm/s >=9.5 Aortic Valve Name Value Normal AV Doppler AV Peak Velocity 149 cm/s AV Peak Gradient 9 mmHg AV Mean Gradient 5 mmHg AV VTI 25 cm AV Area (Cont Eq VTI) 2.4 cm2 >=3.0 AV Area (Cont Eq Gómez) 2.5 cm2 AV DI (Gómez) 0.70 AV Regurgitation 2D LVOT Area 3.6 cm2 Ventricles Name Value Normal LV Dimensions 2D/MM IVS Diastolic Thickness (2D) 1.0 cm 0.6-1.0 LVID Diastole (2D) 4.3 cm 4.2-5.8 LVIW Diastolic Thickness (2D) 0.9 cm 0.6-1.0 LVID Systole (2D) 3.0 cm 2.5-4.0 LVOT Diameter 2.2 cm LV Mass (2D Cubed) 137.02 g 88.00-224.00 LV Mass Index (2D Cubed) 73 g/m2 49-115 Relative Wall Thickness (2D) 0.42 <=0.42 LV Fractional Shortening/Ejection Fraction 2D/MM LV Fractional Shortening (2D) 30 % 25-43 LV EF (2D Teichholz) 58 % LV Diastolic Volume (4C MOD) 71 ml LV EF (4C MOD) 61 % LV Diastolic Volume (2C MOD) 57 ml LV EF (2C MOD) 66 % LV Diastolic Volume (BP MOD) 64 ml 62-150 LV Diastolic Volume Index (BP MOD) 34 ml/m2 34-74 LV Systolic Volume (BP MOD) 24 ml 21-61 LV Systolic Volume Index (BP MOD) 13 ml/m2 11-31 LV EF (BP MOD) 62 % 52-72 LV Diastolic Length (4C) 7.6 cm LV Systolic Length (4C) 5.6 cm LV Stroke Volume (4C MOD) 43 ml Atria Name Value Normal LA Dimensions LA Volume (4C A-L) 65 ml LA Volume (BP A-L) 72 ml RA Dimensions RA Systolic Major [place] Length (4C) 6.5 cm 2.1-2.7 RA Area (4C) 31.6 cm2 <=18.0 Report Signatures
[2025-11-08] MEDS: IPRATROPIUM 0.5 MG/ALBUTEROL SULFATE 2.5 MG (BASE) AMPUL.NEB 3 ML INHALATION ×4 (02:51→19:58)
[2025-11-08 04:56] LABS: Hematocrit 40.4 % (42.0-52.0); Hemoglobin 13.3 g/dL (14.0-18.0); Mean Corpuscular HGB Conc 32.9 g/dl (32-36); Mean Corpuscular Hemoglobin 31.4 pg (26-34); Mean Corpuscular Volume 95.5 fl (80-100); Platelet Count Result 170 k/mm3 (150-375); Red Blood Count 4.23 M/mm3 (4.6-6.20); White Blood Count 10.3 K/mm3 (4.5-10.0)
[2025-11-08 05:20] LABS: Anion Gap 3 mmol/L (4-12); Blood Urea Nitrogen 22 mg/dL (9-20); Calcium 8.5 mg/dL (8.4-10.2); Carbon Dioxide 31 mmol/L (22-30); Chloride 101 mmol/L (98-107); Estimated CRCL calculation 42 ml/min; Estimated Glomerular Filt Rate > 60; Glucose 78 mg/dL (65-110); Potassium 4.0 mmol/L (3.4-5.0); Sodium 135 mmol/L (137-145)
--- NOTE | 2025-11-08 07:07 | PM.IMPN2 ---
Assessment and Plan Assessment and Plan (1) Chronic obstructive pulmonary disease: Qualifiers: COPD type: unspecified COPD Qualified Code(s): J44.9 - Chronic obstructive pulmonary disease, unspecified Code(s): J44.9 - Chronic obstructive pulmonary disease, unspecified Status: Chronic Assessment and Plan: -his O2 saturation is 92% on room air. -his lung sounds diminished, very little air movement -start IV solu-medrol 11/08 -continue with Mucinex -continue with DuoNebs. -the patient was empirically started on azithromycin and Rocephin. -sputum and blood cultures are pending. -may consider pulmonary consult. -Chest CTA 11/07/25 18:24 IMPRESSION: 1. No evidence of pulmonary emboli. Thoracic aorta shows no acute findings. 2. Emphysematous lungs. Coronary artery calcification of left main, anterior descending and right coronary arteries. 3. Cardiomegaly with left atrial, right ventricular and right atrial enlargement with pericardial effusion. Dilated inferior vena cava and hepatic veins suggestive of elevated right cardiac pressures. 4. Calcific atherosclerotic changes at the origin of renal arteries. -continue with Singulair (2) Atrial fibrillation: Qualifiers: Atrial fibrillation type: longstanding persistent Qualified Code(s): I48.11 - Longstanding persistent atrial fibrillation Code(s): I48.91 - Unspecified atrial fibrillation Status: Chronic Assessment and Plan: The patient is in AFib. He has had a past history of having a cardioversion in the past. -rate is controlled at this time -continue with diltiazem -continue with Xarelto (3) BPH (benign prostatic hyperplasia): Qualifiers: Lower urinary tract symptom presence: unspecified whether lower urinary tract symptoms present Qualified Code(s): N40.0 - Benign prostatic hyperplasia without lower urinary tract symptoms Code(s): N40.0 - Benign prostatic hyperplasia without lower urinary tract symptoms Status: Acute Assessment and Plan: -continue doxazosin (4) Essential hypertension: Code(s): I10 - Essential (primary) hypertension Status: Chronic Assessment and Plan: -continue with Lasix, doxazosin, Cardizem, and Lasix (5) Dyslipidemia: Code(s): E78.5 - Hyperlipidemia, unspecified Status: Chronic Assessment and Plan: -continue with rosuvastatin (6) Pericardial effusion: Code(s): I31.39 - Other pericardial effusion (noninflammatory) Status: Acute Assessment and Plan: -cardiology has been consulted. -echo has been ordered. -Chest CTA 11/07/25 18:24 IMPRESSION: 1. No evidence of pulmonary emboli. Thoracic aorta shows no acute findings. 2. Emphysematous lungs. Coronary artery calcification of left main, anterior descending and right coronary arteries. 3. Cardiomegaly with left atrial, right ventricular and right atrial enlargement with pericardial effusion. Dilated inferior vena cava and hepatic veins suggestive of elevated right cardiac pressures. 4. Calcific atherosclerotic changes at the origin of renal arteries. -continue with Lasix -the patient recently had a viral infection RSV which could have caused the pericardial effusion. (7) AMS (altered mental status): Code(s): R41.82 - Altered mental status, unspecified Status: Acute Assessment and Plan: per family patient is confused they do endorse patient is confused at times at home but this is worse head CT ordered continue IV antibiotics reorient as needed no focal deficits noted on exam Medical Record Review I have reviewed the following patient records and this information was taken into consideration when formulating the assessment and plan.: previous labs, previous ER visits and previous hospitalizations Consultations Consultations: I have discussed the care of this pt with the consulting providers. Subjective Date/time seen: 11/08/25 07:07 Interval history: Patient seen for a follow up visit. Patient lying in bed, in no acute distress. Patient denies acute pain. Family at bedside and they report patient is still confused. Head CT ordered. Patient with decreased air movement, cough, will add IV solu-medrol. Patient continues on IV azithromycin and IV ceftriaxone. Cardiology consulted. ECHO ordered and is pending. Patient with bothersome cough, will add Mucinex and tessalon pearls. Review of Systems Review of Systems: All systems reviewed & are unremarkable except as noted in HPI and below Exam Const: General: comfortable and no acute distress HENMT: Face/Nose/Sinus: Normal nares present Mouth: Yes moist mucous membranes Eyes: General: appearance normal, both eyes and all related structures Sclera: sclerae normal Neck: Neck: supple Resp: Effort & Inspection: normal respiratory effort Auscultation: diminished lung sounds Cardio: Rate: regular rate Rhythm: regular rhythm GI: GI Palp: Yes Soft to palpation Auscultation: normal bowel sounds Skin: General skin exam: normal color and no rashes or lesions noted Neuro: Speech: normal speech Motor exam (neuro): 5/5 motor strength present throughout Sensory Exam: normal sensation Other: alert and oriented x 2 to self Extrem: General: normal to inspection Psych: Mental Status: mental status grossly normal Affect: normal affect Objective Data Vital Signs Vital Signs: Vital Signs - 24 hr 11/07/25 14:23 11/07/25 14:43 11/07/25 14:45 Temperature 97.5 F L Pulse Rate 80 64 55 L Respiratory Rate 18 18 16 Blood Pressure 113/56 L Pulse Oximetry 95 97 98 Oxygen Delivery Room Air Fraction of Inspired Oxygen 11/07/25 14:46 11/07/25 15:01 11/07/25 15:02 Temperature Pulse Rate 58 L 66 59 L Respiratory Rate 18 19 15 Blood Pressure 121/70 129/53 L Pulse Oximetry 98 97 97 Oxygen Delivery Fraction of Inspired Oxygen 11/07/25 15:16 11/07/25 15:17 11/07/25 15:24 Temperature Pulse Rate 64 59 L Respiratory Rate 17 16 Blood Pressure 119/60 Pulse Oximetry 99 98 98 Oxygen Delivery Room Air Fraction of Inspired Oxygen 11/07/25 15:58 11/07/25 16:00 11/07/25 16:03 Temperature Pulse Rate 65 71 65 Respiratory Rate 17 15 19 Blood Pressure 99/52 L Pulse Oximetry 94 94 95 Oxygen Delivery Fraction of Inspired Oxygen 11/07/25 16:16 11/07/25 17:00 11/07/25 19:29 Temperature Pulse Rate 71 68 70 Respiratory Rate 22 H 17 19 Blood Pressure 97/57 L 105/51 L Pulse Oximetry 96 96 96 Oxygen Delivery Fraction of Inspired Oxygen 11/07/25 19:31 11/07/25 20:26 11/07/25 20:52 Temperature 98.2 F 98.2 F Pulse Rate 67 71 71 Respiratory Rate 15 15 Blood Pressure 100/54 L 100/54 L Pulse Oximetry 99 99 Oxygen Delivery Fraction of Inspired Oxygen 11/07/25 20:57 11/07/25 21:02 11/08/25 02:51 Temperature 97.4 F L Pulse Rate 82 74 71 Respiratory Rate 16 18 Blood Pressure 109/34 L 122/67 Pulse Oximetry 93 Oxygen Delivery Fraction of Inspired Oxygen 11/08/25 02:55 11/08/25 02:59 11/08/25 06:31 Temperature 97.6 F Pulse Rate 71 75 62 Respiratory Rate 18 16 Blood Pressure 113/64 Pulse Oximetry 91 91 Oxygen Delivery Room Air Fraction of Inspired Oxygen 21 Intake/Output Intake/Output: Intake & Output 11/05/25 11/06/25 11/07/25 11/08/25 23:59 23:59 23:59 23:59 Intake Total 50 Balance 50 Meds/Results Medications: Active Medications Generic Name Dose Route Start Last Admin Trade Name Freq PRN Reason Stop Dose Admin Albuterol/Ipratropium 3 ml 11/08/25 02:00 11/08/25 02:51 Ipratropium 0.5 Mg/Albuterol Sulfate 2.5 Mg (Base) Ampul.Neb 3 Ml INHALATION 3 ml Q6HRT SOCORRO Administration Diltiazem HCl 120 mg 11/08/25 09:00 Diltiazem Hcl Cd 120 Mg Cap.24hr BY MOUTH DAILY SOC[facility]RO Doxazosin Mesylate 4 mg 11/08/25 09:00 Doxazosin Mesylate 4 Mg Tablet PO DAILY SOCORRO Fluticasone Propionate 2 spray 11/08/25 09:00 Fluticasone Propionate 0.05% Na Spr 16 Gm Btl (*Bkc) NASAL DAILY SOCORRO Fluticasone/Umeclidinium/Vilanterol 1 puff 11/08/25 08:00 Fluticasone/Umeclidin/Vilanter 100-62.5-25 Mcg Ellipta INHALATION DAILYRT SOCORRO Furosemide 20 mg 11/09/25 09:00 Furosemide 20 Mg Tablet PO Q48H [facility]RO Guaifenesin/Dextromethorphan 10 ml 11/08/25 00:20 Guaifenesin/Dextromethorphan 10 Ml Udc PO Q4H PRN Cough Ceftriaxone Sodium 1 gm/ 50 mls @ 100 mls/hr 11/08/25 20:00 Sodium Chloride IVPB Q24H SOC[facility]RO Azithromycin 500 mg/ Sodium 250 mls @ 250 mls/hr 11/08/25 21:00 Chloride IVPB 11/11/25 21:59 Q24H SOC[facility]RO Montelukast Sodium 10 mg 11/08/25 09:00 Montelukast Sodium 10 Mg Tablet PO DAILY SOCORRO Perflutren Lipid Microsphere 0 ml 11/08/25 00:23 Perflutren Lipid Microspheres 1.5 Ml Vial Diluted To 10 Ml Total Volume IV PUSH 11/11/25 00:23 ONCE PRN adequate visualization Protocol Rivaroxaban 20 mg 11/08/25 17:00 Rivaroxaban 20 Mg Tablet BY MOUTH DAILY@1700 [facility] Rosuvastatin Calcium 10 mg 11/08/25 09:00 Rosuvastatin 10 Mg Tablet BY MOUTH DAILY [facility] Radiology Results: ITS Impressions Chest X-Ray 11/07/25 16:43 IMPRESSION: 1. No acute findings. Emphysematous lungs. Chest CTA 11/07/25 18:24 IMPRESSION: 1. No evidence of pulmonary emboli. Thoracic aorta shows no acute findings. 2. Emphysematous lungs. Coronary artery calcification of left main, anterior descending and right coronary arteries. 3. Cardiomegaly with left atrial, right ventricular and right atrial enlargement with pericardial effusion. Dilated inferior vena cava and hepatic veins suggestive of elevated right cardiac pressures. 4. Calcific atherosclerotic changes at the origin of renal arteries. Labs Labs: Laboratory Results - last 24 hr 11/07/25 11/07/25 11/07/25 14:55 16:02 16:03 WBC 7.9 RBC 4.27 L Hgb 13.7 L Hct 39.9 L MCV 93.4 MCH 32.1 MCHC 34.3 RDW 12.9 Plt Count 159 MPV 9.5 Immature Gran % (Auto) 0.9 H Neut % (Auto) 69.0 Lymph % (Auto) 21.7 [place] % (Auto) 7.0 Eos % (Auto) 1.0 Baso % (Auto) 0.4 Lymph # (Auto) 1.71 [place] # (Auto) 0.6 Eos # (Auto) 0.1 Baso # (Auto) 0.0 Abs Immat Gran (auto) 0.07 H Absolute Neuts (auto) 5.4 Absolute Nucleated RBC 0.000 Nucleated RBC % 0.0 PT 34.3 H INR 3.6 APTT 38.4 H Sodium 133 L Potassium 3.9 Chloride 102 Carbon Dioxide 28 Anion Gap 3 L BUN 20 Creatinine 0.88 Estim Creat Clear Calc Not Reportable Estimated GFR > 60 Glucose 95 Calcium 8.3 L Total Bilirubin 1.1 AST 28 ALT 44 Alkaline Phosphatase 101 Total Protein 5.8 L Albumin 3.1 L Urine Color Yellow Urine Appearance Cloudy H Urine pH 5.5 Ur Specific [place] 1.015 Urine Protein Negative Urine Glucose (UA) Negative Urine Ketones Trace H Ur Blood (Man) 2+ H Urine Nitrate Negative Urine Bilirubin Negative Urine Urobilinogen 1.0 Leukocyte Esterase Rfl Negative Urine RBC 11-20 H Urine WBC 0-5 Ur Squamous Epith Cells None seen Urine Bacteria None seen Urine Casts 0-2 Influenza A (RT-PCR) Negative Influenza B (RT-PCR) Negative RSV (RT-PCR) Negative SARS-CoV-2 RNA (RT-PCR) Negative 11/08/25 04:20 WBC 10.3 H RBC 4.23 L Hgb 13.3 L Hct 40.4 L MCV 95.5 MCH 31.4 MCHC 32.9 RDW 13.1 Plt Count 170 MPV 9.7 Immature Gran % (Auto) Neut % (Auto) Lymph % (Auto) [place] % (Auto) Eos % (Auto) Baso % (Auto) Lymph # (Auto) [place] # (Auto) Eos # (Auto) Baso # (Auto) Abs Immat Gran (auto) Absolute Neuts (auto) Absolute Nucleated RBC Nucleated RBC % PT INR APTT Sodium 135 L Potassium 4.0 Chloride 101 Carbon Dioxide 31 H Anion Gap 3 L BUN 22 H Creatinine 1.02 Estim Creat Clear Calc 42 Estimated GFR > 60 Glucose 78 Calcium 8.5 Total Bilirubin AST ALT Alkaline Phosphatase Total Protein Albumin Urine Color Urine Appearance Urine pH Ur Specific [place] Urine Protein Urine Glucose (UA) Urine Ketones Ur Blood (Man) Urine Nitrate Urine Bilirubin Urine Urobilinogen Leukocyte Esterase Rfl Urine RBC Urine WBC Ur Squamous Epith Cells Urine Bacteria Urine Casts Influenza A (RT-PCR) Influenza B (RT-PCR) RSV (RT-PCR) SARS-CoV-2 RNA (RT-PCR) Quality VTE Prophylaxis VTE prophylaxis: pharmacologic ordered
[2025-11-08] MEDS: FLUTICASONE/UMECLIDIN/VILANTER 100-62.5-25 MCG ELLIPTA 1 PUFF INHALATION (08:11)
[2025-11-08] MEDS: ROSUVASTATIN 10 MG TABLET BY MOUTH (08:54)
[2025-11-08] MEDS: dilTIAZem HCL CD 120 MG CAP.24HR BY MOUTH (08:54)
[2025-11-08] MEDS: MONTELUKAST SODIUM 10 MG TABLET PO (08:55)
[2025-11-08] MEDS: DOXAZOSIN MESYLATE 4 MG TABLET PO (08:55)
[2025-11-08] MEDS: FLUTICASONE PROPIONATE 0.05% NA SPR 16 GM BTL (*BKC) 2 SPRAY NASAL (08:55)
--- NOTE | 2025-11-08 09:25 | PM.CNCAR ---
Assessment and Plan Assessment and plan (1) Pericardial effusion: Code(s): I31.39 - Other pericardial effusion (noninflammatory) Status: Acute (2) Atrial fibrillation: Qualifiers: Atrial fibrillation type: longstanding persistent Qualified Code(s): I48.11 - Longstanding persistent atrial fibrillation Code(s): I48.91 - Unspecified atrial fibrillation Status: Chronic (3) Essential hypertension: Code(s): I10 - Essential (primary) hypertension Status: Chronic Plan -pericardial effusion -atrial fibrillation, persistent -hypertension -recent RV SV infection -acute chronic COPD exacerbation -regards to pericardial effusion, patient had RSV infection on October 26 came back to the hospital because of increasing dyspnea on exertion increasing cough and altered mental status. CT scan shows moderate pericardial effusion. Patient currently on room air this. Blood pressure is soft. Obtain echocardiogram to assess. -in regards to atrial fibrillation, rate controlled. Seems to be persistent. Continue rate control with diltiazem. -in regards to acute on chronic COPD exacerbation, treatment per primary team -regards to hypertension, continue doxazosin and diltiazem which he takes at home and History of Present Illness History of Present Illness Consult date/time: Date of service 11/08/25 09:25 Requesting physician: Yenni Vides APRN Consult reason: Other (Pericardial effusion) Reason For Visit: SOB Narrative: This is a 89-year-old patient with past medical history of CVA, carotid stenosis, atrial fibrillation and COPD. The patient came to the emergency room for increased cough, congestion and altered mental status. The patient was diagnosed with RSV approximately 2 weeks ago and had been on steroids. The and daughter at the bedside are offering history on the patient. They stated that he has had increased confusion. He is being treated with IV antibiotics for presumptive pneumonia. Stated has increasing cough. Dyspnea exertion. Denies extremity chest syncope. Blood pressures upper 90s and low 100s. CTA ruled out pulmonary embolism and showed emphysematous lungs, coronary calcification, enlarged atria, ventricle with pericardial effusion measuring 17 mm. EKG reviewed and shows AFib with slow ventricular response. Last echo 2021 ejection fraction 60%, moderate LVH, moderate biatrial enlargement. Review of Systems Constitutional: Constitutional: Denies chills, Denies fever(s) and Denies poor appetite Eyes: Eyes: Denies eye discharge, Denies loss of vision and Denies eye pain ENT: Denies dizziness, Denies epistaxis, Denies nasal congestion and Denies sore throat Cardiovascular: Cardiovascular: Denies chest pain, Denies syncope, Denies pedal edema, Denies leg edema, Denies palpitations, Reports dyspnea, Reports dyspnea on exertion and Denies orthopnea Respiratory: Respiratory: Reports cough, Reports dyspnea, Reports dyspnea on exertion and Denies wheezing Gastrointestinal: Gastrointestinal: Denies abdominal pain, Denies diarrhea, Denies nausea and Denies vomiting Genitourinary: Genitourinary: Denies hematuria, Denies genital lesions and Denies dysuria Musculoskeletal: Musculoskeletal: Denies arthralgias, Denies joint swelling and Denies numbness Integumentary/Breasts: Skin/Breast: Denies pruritus and Denies rash Neurologic: Denies dizziness, Denies syncope, Denies loss of vision and Denies numbness Comments: Status Psychiatric: Psychiatric: Denies anxiety and Denies depression Comments: Altered mental status Endocrine: Endocrine: Denies cold intolerance, Denies heat intolerance and Denies palpitations Hematologic/Lymphatic: Hematologic/Lymphatic: Denies easy bleeding and Denies easy bruising Allergic/Immunologic: Allergic/Immunologic: Denies urticaria and Denies wheezing PMFSH Past Medical History Medical History History of cardioversion Arthritis Old cerebrovascular accident (CVA) without late effect Carotid stenosis Dyslipidemia Bladder cancer Bladder tumors removed BPH (benign prostatic hyperplasia) Atrial fibrillation Chronic obstructive pulmonary disease Essential hypertension Moderate persistent asthma without complication EROS (obstructive sleep apnea) Non compliant with CPAP Surgical History Surgical History History of right-sided carotid endarterectomy H/O nasal polypectomy Cataract extraction status History of nasal surgery x3. Two surgeries at [facility], one at [facility]. H/O transurethral destruction of bladder lesion Follows with Dr Smith. TURBT removed 3 tumors per patient. Had cysto 2months ago by Dr Smith. Family History Family History Mother Cerebrovascular accident Father Patient's father is Family history of Alzheimer's disease Alcohol abuse Social History Social History Social History: Patient lives at home with his . He drinks about 1 beer per day. He smoked 1ppd cigarettes x 30 years and quit smoking in the . No substance use. His PCP is Dr Julien Dewitt. He designates his , Lashanda, as his surrogate decision maker. He wishes to be full code status, but would not wish to be kept on life support for a long period of time. He has Four children Code status full code. However the patient does not want to be trached are live on a ventilator. Smoking packs per day: 1 Smoking cigarettes per day: 20.0 Years smoked: 25 Smoking pack-years: 25.00 Smoking status: Former smoker Tobacco type: cigarettes and smokeless tobacco Smokeless tobacco user: chewing tobacco Second hand tobacco smoke exposure: Yes Smoking end date: 12/10/76 Alcohol intake: current Drinks per week: 4 Substance use: never Substance use type: does not use Lack of Transportation: No Lack of Food: Never True Current Housing: I Have Housing Concerned About Future Housing: No Difficulty Paying Gas/Electric Bills: No Difficulty Paying for Meds: No Currently Unemployed: No Education: High School Diploma/GED Difficulty w/ Childcare or Family Care: No Living arrangements: with family Additional living arrangements comments: - LASHANDA Occupation/Education: retired Gender identity (if verbalized by the patient): Male Spiritual care concerns: No Agree to blood products: Yes Meds Home Medications and Allergies Home Medications ?Medication ?Instructions ?Recorded ?Confirmed ?Type furosemide 20 mg tablet 20 mg PO EVERY OTHER DAY 03/08/21 11/07/25 History psyllium husk (with sugar) 3 1 tbsp PO DAILY 02/04/22 11/07/25 History gram/7 gram oral powder (Daily Fiber (psyllium-sucrose)) albuterol sulfate 90 mcg/actuation 2 puff inhalation Q4H PRN Dyspnea 02/06/22 11/07/25 Rx aerosol inhaler 30 days #1 g fluticasone fur. 100 mcg-umeclid 1 inh inhalation DAILY #60 ea 03/20/24 11/07/25 Rx 62.5 mcg-vilant 25 mcg inhalat.powder (Trelegy Ellipta) albuterol sulfate 2.5 mg/3 mL See Rx Instructions .Route 11/30/24 11/07/25 Rx (0.083 %) solution for nebulization .COMPLEX #360 mL montelukast 10 mg tablet 10 mg PO DAILY #90 tabs 02/21/25 11/07/25 Rx doxazosin 4 mg tablet 4 mg PO DAILY #90 tabs 07/05/25 11/07/25 Rx diltiazem HCl 120 mg See Rx Instructions .Route 07/26/25 11/07/25 Rx capsule,extended release 24 hr, .COMPLEX #90 caps controlled (DILT-XR) rivaroxaban 20 mg tablet (Xarelto) See Rx Instructions .Route 09/05/25 11/07/25 Rx .COMPLEX #90 tabs rosuvastatin 10 mg tablet See Rx Instructions .Route 10/11/25 11/07/25 Rx .COMPLEX #90 tabs fluticasone propionate 50 1 spray intranasal DAILY #16 grams 10/26/25 11/07/25 Rx mcg/actuation nasal spray,suspension Allergies Allergy/AdvReac Type Severity Reaction Status Date / Time sucralfate Allergy Unknown Hives Verified 11/07/25 21:19 Vital Signs Vital Signs - 24 hr 11/07/25 14:23 11/07/25 14:43 11/07/25 14:45 Temperature 36.4 C L Pulse Rate 80 64 55 L Respiratory Rate 18 18 16 Blood Pressure 113/56 L Pulse Oximetry 95 97 98 Oxygen Delivery Room Air Fraction of Inspired Oxygen 11/07/25 14:46 11/07/25 15:01 11/07/25 15:02 Temperature Pulse Rate 58 L 66 59 L Respiratory Rate 18 19 15 Blood Pressure 121/70 129/53 L Pulse Oximetry 98 97 97 Oxygen Delivery Fraction of Inspired Oxygen 11/07/25 15:16 11/07/25 15:17 11/07/25 15:24 Temperature Pulse Rate 64 59 L Respiratory Rate 17 16 Blood Pressure 119/60 Pulse Oximetry 99 98 98 Oxygen Delivery Room Air Fraction of Inspired Oxygen 11/07/25 15:58 11/07/25 16:00 11/07/25 16:03 Temperature Pulse Rate 65 71 65 Respiratory Rate 17 15 19 Blood Pressure 99/52 L Pulse Oximetry 94 94 95 Oxygen Delivery Fraction of Inspired Oxygen 11/07/25 16:16 11/07/25 17:00 11/07/25 19:29 Temperature Pulse Rate 71 68 70 Respiratory Rate 22 H 17 19 Blood Pressure 97/57 L 105/51 L Pulse Oximetry 96 96 96 Oxygen Delivery Fraction of Inspired Oxygen 11/07/25 19:31 11/07/25 20:26 11/07/25 20:52 Temperature 36.8 C 36.8 C Pulse Rate 67 71 71 Respiratory Rate 15 15 Blood Pressure 100/54 L 100/54 L Pulse Oximetry 99 99 Oxygen Delivery Fraction of Inspired Oxygen 11/07/25 20:57 11/07/25 21:02 11/08/25 00:00 Temperature 36.3 C L Pulse Rate 82 74 61 Respiratory Rate 16 Blood Pressure 109/34 L 122/67 Pulse Oximetry 93 Oxygen Delivery Fraction of Inspired Oxygen 11/08/25 02:51 11/08/25 02:55 11/08/25 02:59 Temperature Pulse Rate 71 71 75 Respiratory Rate 18 18 Blood Pressure Pulse Oximetry 91 Oxygen Delivery Room Air Fraction of Inspired Oxygen 21 11/08/25 04:00 11/08/25 06:31 Temperature 36.4 C Pulse Rate 91 62 Respiratory Rate 16 Blood Pressure 113/64 Pulse Oximetry 91 Oxygen Delivery Fraction of Inspired Oxygen Exam Const: General: cooperative, comfortable, no acute distress, alert, awake and well nourished Nutritional Appearance: well nourished Orientation/consciousness: patient oriented x3 HENMT: Head: normal to inspection, normocephalic and atraumatic Ears: hearing grossly normal bilaterally Face/Nose/Sinus: Normal external nose present, Normal nares present, no nasal discharge noted, normal facial exam and No erythema Face and sinus: normal facial exam and no erythema Mouth: No drooling and No restricted motion Throat: uvula midline Eyes: General: appearance normal, both eyes and all related structures Alignment and Position: position normal Conjunctivae: conjunctivae normal Sclera: sclerae normal Direct Ophthalmoscopy: No photophobia Neck: Neck: normal visual inspection and no JVD Thyroid: thyroid normal Carotids: no bruits Lymphatic: lymphedema not noted Chest: Chest palpation & inspection: normal inspection of the chest and no tenderness Resp: Effort & Inspection: normal respiratory effort and no nasal flaring Auscultation: crackles, rales, wheezes and diminished lung sounds Other: Decreased air entry bilaterally Cardio: Jugular venous distension: no JVD Rate: regular rate Rhythm: abnormal rhythm Heart sounds: S1 normal heart sound present, S2 normal heart sound present, no gallops, no murmurs and no rubs GI: Inspection: non-distended GI Palp: No abdominal tenderness and No Soft to palpation Auscultation: normal bowel sounds Rectal Exam: deferred : General: No no CVA tenderness Back/Spine/Pelvis: Back: No no CVA tenderness Cervical Spine: cervical ROM normal Skin: General skin exam: normal color and rashes and/or lesions noted Neuro: General: patient oriented x3 Cranial nerves: No CN's II-XII intact bilaterally Speech: normal speech Motor exam (neuro): no tremors Extrem: General: normal to inspection and pedal edema present Psych: Appearance: grossly normal and well kempt Speech and movement: Normal speech and movement present Affect: normal affect Results Labs and Meds 11/08/25 04:20 11/08/25 04:20 Lab results: Cardiac Enzymes 11/07/25 Range/Units 14:55 AST 28 (17-59) U/L Coagulation 11/07/25 Range/Units 14:55 PT 34.3 H (11.1-14.7) Seconds APTT 38.4 H (22.3-36.8) Seconds CBC 11/07/25 11/08/25 Range/Units 14:55 04:20 WBC 7.9 10.3 H (4.5-10.0) K/mm3 RBC 4.27 L 4.23 L (4.6-6.20) M/mm3 Hgb 13.7 L 13.3 L (14.0-18.0) g/dL Hct 39.9 L 40.4 L (42.0-52.0) % Plt Count 159 170 (150-375) k/mm3 Lymph # (Auto) 1.71 (0.9-3.2) K/mm3 [place] # (Auto) 0.6 (0.1-0.6) K/mm3 Eos # (Auto) 0.1 (0-0.3) K/mm3 Baso # (Auto) 0.0 (0.0-0.1) K/mm3 Comprehensive Metabolic Panel 11/07/25 11/08/25 Range/Units 14:55 04:20 Sodium 133 L 135 L (137-145) mmol/L Potassium 3.9 4.0 (3.4-5.0) mmol/L Chloride 102 101 (98-107) mmol/L Carbon Dioxide 28 31 H (22-30) mmol/L BUN 20 22 H (9-20) mg/dL Creatinine 0.88 1.02 (0.7-1.3) mg/dL Glucose 95 78 (65-110) mg/dL Calcium 8.3 L 8.5 (8.4-10.2) mg/dL AST 28 (17-59) U/L ALT 44 (6-50) U/L Alkaline Phosphatase 101 (38-126) U/L Total Protein 5.8 L (6.3-8.2) g/dL Albumin 3.1 L (3.5-5.1) g/dL Intake and Output 11/07/25 11/08/25 11/08/25 23:59 07:59 15:59 Intake Total 50 240 Balance 50 240 Intake: IV 50 cefTRIAXone 1 gm In Sodium 50 Chloride 0.9% IV 50 ml @ 100 mls/hr IVPB ONCE STA Rx#: [id number] Oral 240
[2025-11-08] MEDS: RIVAROXABAN 20 MG TABLET BY MOUTH (17:13)
[2025-11-08] MEDS: cefTRIAXone 1 GM in SODIUM CHLORIDE 0.9% IV 50 ML 100 ML IVPB (20:37)
[2025-11-08] MEDS: guaiFENesin 600 MG/DEXTROMETHORPHAN 30 MG SR TAB 12 HR 2 TAB PO (20:53)
[2025-11-08] MEDS: AZITHROMYCIN IV 500 MG in SODIUM CHLORIDE 0.9% IV 250 ML IVPB (21:00)
[2025-11-09] VITALS (17 sets, daily range): BP systolic 115–123; BP diastolic 43–62; PULSE 63–97; RESP 18–20; TEMP 36.6; O2SAT 93–95
[2025-11-09] MEDS: IPRATROPIUM 0.5 MG/ALBUTEROL SULFATE 2.5 MG (BASE) AMPUL.NEB 3 ML INHALATION ×4 (01:36→20:23)
[2025-11-09 05:53] LABS: Hematocrit 36.9 % (42.0-52.0); Hemoglobin 12.3 g/dL (14.0-18.0); Mean Corpuscular HGB Conc 33.3 g/dl (32-36); Mean Corpuscular Hemoglobin 31.5 pg (26-34); Mean Corpuscular Volume 94.4 fl (80-100); Platelet Count Result 145 k/mm3 (150-375); Red Blood Count 3.91 M/mm3 (4.6-6.20); White Blood Count 13.1 K/mm3 (4.5-10.0)
[2025-11-09 06:25] LABS: Anion Gap 8 mmol/L (4-12); Blood Urea Nitrogen 27 mg/dL (9-20); Calcium 8.4 mg/dL (8.4-10.2); Carbon Dioxide 25 mmol/L (22-30); Chloride 101 mmol/L (98-107); Estimated CRCL calculation 46 ml/min; Estimated Glomerular Filt Rate > 60; Glucose 249 mg/dL (65-110); Potassium 4.8 mmol/L (3.4-5.0); Sodium 134 mmol/L (137-145)
--- NOTE | 2025-11-09 07:16 | P.PNIM_ITS ---
Assessment and Plan Assessment and Plan (1) Chronic obstructive pulmonary disease: Qualifiers: COPD type: unspecified COPD Qualified Code(s): J44.9 - Chronic obstructive pulmonary disease, unspecified Code(s): J44.9 - Chronic obstructive pulmonary disease, unspecified Status: Chronic Assessment and Plan: * O2 saturation 92% on room air. * start IV solu-medrol 11/08 * continue with Mucinex, DuoNebs * started on azithromycin and Rocephin * sputum and blood cultures are pending * may consider pulmonary consult -Chest CTA 11/07/25 18:24 IMPRESSION: 1. No evidence of pulmonary emboli. Thoracic aorta shows no acute findings. 2. Emphysematous lungs. Coronary artery calcification of left main, anterior descending and right coronary arteries. 3. Cardiomegaly with left atrial, right ventricular and right atrial enlargement with pericardial effusion. Dilated inferior vena cava and hepatic veins suggestive of elevated right cardiac pressures. 4. Calcific atherosclerotic changes at the origin of renal arteries. -continue with Singulair (2) Atrial fibrillation: Qualifiers: Atrial fibrillation type: longstanding persistent Qualified Code(s): I48.11 - Longstanding persistent atrial fibrillation Code(s): I48.91 - Unspecified atrial fibrillation Status: Chronic Assessment and Plan: * The patient is in AFib. He has had a past history of having a cardioversion in the past. * rate is controlled at this time * continue with diltiazem, Xarelto (3) BPH (benign prostatic hyperplasia): Qualifiers: Lower urinary tract symptom presence: unspecified whether lower urinary tract symptoms present Qualified Code(s): N40.0 - Benign prostatic hyperplasia without lower urinary tract symptoms Code(s): N40.0 - Benign prostatic hyperplasia without lower urinary tract symptoms Status: Acute Assessment and Plan: * continue doxazosin (4) Essential hypertension: Code(s): I10 - Essential (primary) hypertension Status: Chronic Assessment and Plan: * continue with Lasix, doxazosin, Cardizem, and Lasix (5) Dyslipidemia: Code(s): E78.5 - Hyperlipidemia, unspecified Status: Chronic Assessment and Plan: * continue with rosuvastatin (6) Pericardial effusion: Code(s): I31.39 - Other pericardial effusion (noninflammatory) Status: Acute Assessment and Plan: * cardiology has been consulted * echo has been ordered. -Chest CTA 11/07/25 18:24 IMPRESSION: 1. No evidence of pulmonary emboli. Thoracic aorta shows no acute findings. 2. Emphysematous lungs. Coronary artery calcification of left main, anterior descending and right coronary arteries. 3. Cardiomegaly with left atrial, right ventricular and right atrial enlargement with pericardial effusion. Dilated inferior vena cava and hepatic veins suggestive of elevated right cardiac pressures. 4. Calcific atherosclerotic changes at the origin of renal arteries. * continue with Lasix * The patient recently had a viral infection RSV which could have caused the pericardial effusion. (7) AMS (altered mental status): Code(s): R41.82 - Altered mental status, unspecified Status: Acute Assessment and Plan: * per family patient is confused at baseline, but this is worse * head CT ordered * continue IV antibiotics * reorient as needed * no focal deficits noted on exam * 11/09: Patient appears much more alert and oriented today according to daughter/, remains A&O x3 Subjective Date/time seen: 11/09/25 07:16 Interval history: 89-year-old male patient who has a history of an old CVA, carotid stenosis, atrial fibrillation and COPD. The patient came to the emergency room for increased cough, congestion and altered mental status. 11/09/2025 Patient sitting comfortably in bed at time of examination. Denies any chest pain, shortness of breath, nausea/vomiting or abdominal pain. Accompanied by and daughter who state that the patient appears much more alert and oriented today, state that he appears at his baseline mentation. Remains afebrile. Blood cultures pending. No major electrolyte abnormalities, WBC slightly elevated but recently started on methylprednisone. Patient otherwise hemodynamically stable. Review of Systems Review of Systems: Family providing history S the patient is a poor historian All systems reviewed & are unremarkable except as noted in HPI and below ROS unobtainable: Yes unobtainable due to medical condition Constitutional: Constitutional: Reports as per HPI and Reports no additional constitutional complaints Eyes: Eyes: Reports as per HPI and Reports no additional eye complaints ENT: Reports system reviewed and no additional complaints, except as documented and Reports Normal hearing present Cardiovascular: Cardiovascular: Reports no additional cardiovascular complaints Respiratory: Respiratory: Reports as per HPI and Reports no additional respiratory complaints Gastrointestinal: Gastrointestinal: Reports as per HPI and Reports no additional gastrointestinal complaints Musculoskeletal: Musculoskeletal: Reports no additional musculoskeletal complaints Integumentary/Breasts: Skin/Breast: Reports system reviewed and no additional complaints, except as docu Neurologic: Reports system reviewed and no additional complaints, except as documented and Reports Normal hearing present Psychiatric: Psychiatric: Reports no additional psychiatric complaints and Reports as per HPI Hematologic/Lymphatic: Hematologic/Lymphatic: Reports no additional hematologic/lymphatic complaints Allergic/Immunologic: Allergic/Immunologic: Reports no additional aller gic/immunologic complaints Exam Const: General: cooperative, healthy appearing, comfortable, no acute dis tress, well developed, awake, Physically active, average body habitus and well nourished Nutritional Appearance: average body habitus and well nourished Orientation/consciousness: oriented to person HENMT: Head: normal to inspection, No palpable skull fracture present, normocephalic, atraumatic and abrasion Face/Nose/Sinus: Normal nares present Mouth: Yes moist mucous membranes Eyes: General: appearance normal, both eyes and all related structures Alignment and Position: alignment normal Periorbital: periorbital findings normal Sclera: sclerae normal Pupils: Equal, round and reactive pupils present Neck: Neck: normal visual inspection, full ROM, no lymphadenopathy, trachea midline and supple Chest: Chest palpation & inspection: normal inspection of the chest Resp: Effort & Inspection: normal respiratory effort Auscultation: diminished lung sounds diffuse Cardio: Palpation: normal PMI Rate: regular rate Rhythm: regular rhythm Heart sounds: S1 normal heart sound present and S2 normal heart sound present Peripheral pulses: Peripheral pulses 2+ throughout GI: Inspection: normal to inspection Auscultation: normal bowel sounds Rectal Exam: deferred : General: Yes no CVA tenderness Back/Spine/Pelvis: Back: no CVA tenderness Cervical Spine: cervical ROM normal Skin: General skin exam: normal color and no rashes or lesions noted Lesions: no lesions Rashes: no rashes Trauma: no lacerations or abrasions Wounds: no wounds Hair: normal Nails: normal Neuro: General: oriented to person Cranial nerves: Yes Equal, round and reactive pupils present and Yes Normal hearing present Speech: normal speech Gait exam (Neuro): Normal gait present Motor exam (neuro): 5/5 motor strength present throughout Sensory Exam: normal sensation Other: alert and oriented x 2 to self Extrem: General: normal to inspection Right upper extremity: normal to inspection and shoulder/upper arm Left upper extremity: normal to inspection and shoulder/upper arm Right lower extremity: normal to inspection Left lower extremity: normal to inspection Psych: Appearance: grossly normal Mental Status: mental status grossly normal Speech and movement: Normal speech and movement present Affect: normal affect Attitude: cooperative Thought process: Normal thought process present Objective Data Vital Signs Vital Signs: Vital Signs - 24 hr 11/08/25 07:35 11/08/25 07:35 11/08/25 07:42 Temperature Pulse Rate 73 73 75 Respiratory Rate 20 20 20 Blood Pressure Pulse Oximetry 93 Oxygen Delivery Room Air Fraction of Inspired Oxygen 21 11/08/25 08:00 11/08/25 09:00 11/08/25 12:00 Temperature Pulse Rate 108 H 88 Respiratory Rate Blood Pressure Pulse Oximetry Oxygen Delivery Room Air Fraction of Inspired Oxygen 11/08/25 13:51 11/08/25 14:00 11/08/25 14:04 Temperature 97.5 F L Pulse Rate 73 72 80 Respiratory Rate 20 20 16 Blood Pressure 100/48 L Pulse Oximetry 92 Oxygen Delivery Fraction of Inspired Oxygen 11/08/25 16:00 11/08/25 20:00 11/08/25 20:00 Temperature Pulse Rate 85 73 Respiratory Rate 20 Blood Pressure Pulse Oximetry Oxygen Delivery Room Air Fraction of Inspired Oxygen 11/08/25 20:00 11/08/25 20:01 11/08/25 22:47 Temperature 97.6 F Pulse Rate 77 85 Respiratory Rate 16 Blood Pressure 138/82 Pulse Oximetry 94 92 Oxygen Delivery Room Air Fraction of Inspired Oxygen 11/09/25 00:00 11/09/25 01:37 11/09/25 04:00 Temperature Pulse Rate 75 77 88 Respiratory Rate 20 Blood Pressure Pulse Oximetry Oxygen Delivery Fraction of Inspired Oxygen 11/09/25 07:07 Temperature 97.9 F Pulse Rate 63 Respiratory Rate 18 Blood Pressure 120/62 Pulse Oximetry 95 Oxygen Delivery Fraction of Inspired Oxygen Intake/Output Intake/Output: Intake & Output 11/06/25 11/07/25 11/08/25 11/09/25 23:59 23:59 23:59 23:59 Intake Total 50 790 350 Output Total 100 250 Balance 50 690 100 Meds/Results Medications: Active Medications Generic Name Dose Route Start Last Admin Trade Name Freq PRN Reason Stop Dose Admin Albuterol/Ipratropium 3 ml 11/08/25 02:00 11/09/25 01:36 Ipratropium 0.5 Mg/Albuterol Sulfate 2.5 Mg (Base) Ampul.Neb 3 Ml INHALATION 3 ml Q6HRT [facility] Administration Benzonatate 200 mg 11/08/25 15:03 Benzonatate 100 Mg Capsule PO Q8H PRN Cough Diltiazem HCl 120 mg 11/08/25 09:00 11/08/25 08:54 Diltiazem Hcl Cd 120 Mg Cap.24hr BY MOUTH 120 mg DAILY [facility] Administration Doxazosin Mesylate 4 mg 11/08/25 09:00 11/08/25 08:55 Doxazosin Mesylate 4 Mg Tablet PO 4 mg DAILY [facility] Administration Fluticasone Propionate 2 spray 11/08/25 09:00 11/08/25 08:55 Fluticasone Propionate 0.05% Na Spr 16 Gm Btl (*Bkc) NASAL 2 spray DAILY [facility] Administration Fluticasone/Umeclidinium/Vilanterol 1 puff 11/08/25 08:00 11/08/25 08:11 Fluticasone/Umeclidin/Vilanter 100-62.5-25 Mcg Ellipta INHALATION 1 puff DAILYRT [facility] Administration Furosemide 20 mg 11/09/25 09:00 Furosemide 20 Mg Tablet PO Q48H [facility] Guaifenesin/Dextromethorphan 2 tab 11/08/25 21:00 11/08/25 20:53 Guaifenesin 600 Mg/Dextromethorphan 30 Mg Sr Tab 12 Hr PO 2 tab Q12HR [facility] Administration Ceftriaxone Sodium 1 gm/ 50 mls @ 100 mls/hr 11/08/25 20:00 11/08/25 21:07 Sodium Chloride IVPB Infused Q24H [facility] Infusion Azithromycin 500 mg/ Sodium 250 mls @ 250 mls/hr 11/08/25 21:00 11/08/25 22:00 Chloride IVPB 11/11/25 21:59 Infused Q24H [facility] Infusion Methylprednisolone Sodium Succinate 80 mg 11/08/25 18:00 11/09/25 05:44 Methylprednisolone Sod Succ 125 Mg Vial IV PUSH 80 mg Q6HR [facility] Administration Montelukast Sodium 10 mg 11/08/25 09:00 11/08/25 08:55 Montelukast Sodium 10 Mg Tablet PO 10 mg DAILY [facility] Administration Perflutren Lipid Microsphere 0 ml 11/08/25 00:23 Perflutren Lipid Microspheres 1.5 Ml Vial Diluted To 10 Ml Total Volume IV PUSH 11/11/25 00:23 ONCE PRN adequate visualization Protocol Rivaroxaban 20 mg 11/08/25 17:00 11/08/25 17:13 Rivaroxaban 20 Mg Tablet BY MOUTH 20 mg DAILY@1700 [facility] Administration Rosuvastatin Calcium 10 mg 11/08/25 09:00 11/08/25 08:54 Rosuvastatin 10 Mg Tablet BY MOUTH 10 mg DAILY [facility] Administration Radiology Results: ITS Impressions Chest X-Ray 11/07/25 16:43 IMPRESSION: 1. No acute findings. Emphysematous lungs. Chest CTA 11/07/25 18:24 IMPRESSION: 1. No evidence of pulmonary emboli. Thoracic aorta shows no acute findings. 2. Emphysematous lungs. Coronary artery calcification of left main, anterior descending and right coronary arteries. 3. Cardiomegaly with left atrial, right ventricular and right atrial enlargement with pericardial effusion. Dilated inferior vena cava and hepatic veins suggestive of elevated right cardiac pressures. 4. Calcific atherosclerotic changes at the origin of renal arteries. Head CT 11/08/25 17:06 IMPRESSION: 1. Small old lacunar infarcts at the left caudate nucleus and left subinsular white matter. No acute intracranial process. 2. Age-related changes including mild diffuse volume loss and moderate scattered white matter hypoattenuation consistent with chronic small vessel ischemic disease. 3. 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 Labs Labs: Laboratory Results - last 24 hr 11/09/25 05:05 WBC 13.1 H RBC 3.91 L Hgb 12.3 L Hct 36.9 L MCV 94.4 MCH 31.5 MCHC 33.3 RDW 13.1 Plt Count 145 L MPV 10.3 Sodium 134 L Potassium 4.8 Chloride 101 Carbon Dioxide 25 Anion Gap 8 BUN 27 H Creatinine 0.93 Estim Creat Clear Calc 46 Estimated GFR > 60 Glucose 249 H Calcium 8.4 Quality VTE Prophylaxis VTE prophylaxis: pharmacologic ordered
[2025-11-09] MEDS: FLUTICASONE/UMECLIDIN/VILANTER 100-62.5-25 MCG ELLIPTA 1 PUFF INHALATION (10:06)
[2025-11-09] MEDS: MONTELUKAST SODIUM 10 MG TABLET PO (11:10)
[2025-11-09] MEDS: guaiFENesin 600 MG/DEXTROMETHORPHAN 30 MG SR TAB 12 HR 2 TAB PO ×2 (11:11→20:33)
[2025-11-09] MEDS: ROSUVASTATIN 10 MG TABLET BY MOUTH (11:11)
[2025-11-09] MEDS: FUROSEMIDE 20 MG TABLET PO (11:11)
[2025-11-09] MEDS: dilTIAZem HCL CD 120 MG CAP.24HR BY MOUTH (11:11)
[2025-11-09] MEDS: DOXAZOSIN MESYLATE 4 MG TABLET PO (11:11)
[2025-11-09] MEDS: FLUTICASONE PROPIONATE 0.05% NA SPR 16 GM BTL (*BKC) 2 SPRAY NASAL (11:12)
--- NOTE | 2025-11-09 11:39 | P.PNCA_ITS ---
Progress Note: A&P Assessment and Plan (1) Pericardial effusion: Code(s): I31.39 - Other pericardial effusion (noninflammatory) Status: Acute (2) Atrial fibrillation: Qualifiers: Atrial fibrillation type: longstanding persistent Qualified Code(s): I48.11 - Longstanding persistent atrial fibrillation Code(s): I48.91 - Unspecified atrial fibrillation Status: Chronic (3) Essential hypertension: Code(s): I10 - Essential (primary) hypertension Status: Chronic Plan -pericardial effusion -atrial fibrillation, persistent -hypertension -recent RV SV infection -acute chronic COPD exacerbation -regards to pericardial effusion, patient had RSV infection on October 26 came back to the hospital because of increasing dyspnea on exertion increasing cough and altered mental status. CT scan shows moderate pericardial effusion. Patient currently on room air this. Blood pressure is soft. Echocardiogram reviewed and analyzed myself shows small pericardial effusion without evidence of tamponade. Continue Lasix 20 mg every 48 hours as he used to take it at home. -in regards to atrial fibrillation, rate controlled. Seems to be persistent. C ontinue rate control with diltiazem. Continue Xarelto. -in regards to acute on chronic COPD exacerbation, treatment per primary team -regards to hypertension, continue doxazosin and diltiazem which he takes at home and Subjective Date/time seen: 11/09/25 11:39 Interval history: 89-year-old male patient who has a history of an old CVA, carotid stenosis, atrial fibrillation and COPD. The patient came to the emergency room for increased cough, congestion and altered mental status. Date of service 11/09/2025-resting comfortably on the side of the bed. Feels much better. He remains room. Cough improved. Review of Systems Constitutional: Constitutional: Denies chills, Denies fever(s) and Denies poor appetite Eyes: Eyes: Denies eye discharge, Denies loss of vision, Denies eye pain and Denies photophobia ENT: Denies dizziness, Denies epistaxis, Denies nasal congestion and Denies sore throat Cardiovascular: Cardiovascular: Denies chest pain, Denies syncope, Denies pedal edema, Denies leg edema, Denies palpitations, Reports dyspnea, Reports dyspnea on exertion and Denies orthopnea Respiratory: Respiratory: Reports cough, Reports dyspnea, Reports dyspnea on exertion and Denies wheezing Gastrointestinal: Gastrointestinal: Denies abdominal pain, Denies diarrhea, Denies nausea and Denies vomiting Genitourinary: Genitourinary: Denies hematuria, Denies genital lesions and Denies dysuria Musculoskeletal: Musculoskeletal: Denies arthralgias, Denies joint swelling and Denies numbness Integumentary/Breasts: Skin/Breast: Denies pruritus and Denies rash Neurologic: Denies dizziness, Denies syncope, Denies loss of vision and Denies numbness Psychiatric: Psychiatric: Denies anxiety and Denies depression Endocrine: Endocrine: Denies cold intolerance, Denies heat intolerance and Denies palpitations Hematologic/Lymphatic: Hematologic/Lymphatic: Denies easy bleeding and Denies easy bruising Allergic/Immunologic: Allergic/Immunologic: Denies urticaria and Denies wheezing Exam Const: General: cooperative, comfortable, no acute distress, alert, awake and well nourished Nutritional Appearance: well nourished Orientation/consciousness: patient oriented x3 HENMT: Head: normal to inspection, normocephalic and atraumatic Ears: hearing grossly normal bilaterally Face/Nose/Sinus: Normal external nose present, Normal nares present, no nasal discharge noted, normal facial exam and No erythema Face and sinus: normal facial exam and no erythema Mouth: No drooling and No restricted motion Throat: uvula midline Eyes: General: appearance normal, both eyes and all related structures Alignment and Position: position normal Conjunctivae: conjunctivae normal Sclera: sclerae normal Direct Ophthalmoscopy: No photophobia Neck: Neck: normal visual inspection and no JVD Thyroid: thyroid normal Carotids: no bruits Lymphatic: lymphedema not noted Chest: Chest palpation & inspection: normal inspection of the chest and no tenderness Resp: Effort & Inspection: normal respiratory effort and no nasal flaring Auscultation: crackles, rales, wheezes and diminished lung sounds Other: Decreased air entry bilaterally Cardio: Jugular venous distension: no JVD Rate: regular rate Rhythm: abnormal rhythm Heart sounds: S1 normal heart sound present, S2 normal heart sound present, no gallops, no murmurs and no rubs GI: Inspection: non-distended Auscultation: normal bowel sounds Rectal Exam: deferred : General: No no CVA tenderness Back/Spine/Pelvis: Back: No no CVA tenderness Cervical Spine: cervical ROM normal Skin: General skin exam: normal color and rashes and/or lesions noted Neuro: General: patient oriented x3 Cranial nerves: No CN's II-XII intact bilaterally Speech: normal speech Motor exam (neuro): no tremors Extrem: General: normal to inspection and pedal edema present Psych: Appearance: grossly normal and well kempt Speech and movement: Normal speech and movement present Affect: normal affect Objective Data Vital Signs Vital Signs: Vital Signs - 24 hr 11/08/25 12:00 11/08/25 13:51 11/08/25 14:00 Temperature Pulse Rate 88 73 72 Respiratory Rate 20 20 Blood Pressure Pulse Oximetry Oxygen Delivery 11/08/25 14:04 11/08/25 16:00 11/08/25 20:00 Temperature 36.4 C L Pulse Rate 80 85 73 Respiratory Rate 16 20 Blood Pressure 100/48 L Pulse Oximetry 92 Oxygen Delivery 11/08/25 20:00 11/08/25 20:00 11/08/25 20:01 Temperature Pulse Rate 77 Respiratory Rate Blood Pressure Pulse Oximetry 94 Oxygen Delivery Room Air Room Air 11/08/25 22:47 11/09/25 00:00 11/09/25 01:37 Temperature 36.4 C Pulse Rate 85 75 77 Respiratory Rate 16 20 Blood Pressure 138/82 Pulse Oximetry 92 Oxygen Delivery 11/09/25 04:00 11/09/25 07:07 11/09/25 08:00 Temperature 36.6 C Pulse Rate 88 63 72 Respiratory Rate 18 Blood Pressure 120/62 Pulse Oximetry 95 Oxygen Delivery 11/09/25 10:06 11/09/25 10:06 11/09/25 10:15 Temperature Pulse Rate 96 92 Respiratory Rate 18 18 Blood Pressure Pulse Oximetry 94 Oxygen Delivery Room Air Intake/Output Intake/Output: Intake & Output 11/06/25 11/07/25 11/08/25 11/09/25 23:59 23:59 23:59 23:59 Intake Total 50 790 350 Output Total 100 250 Balance 50 690 100 Meds/Results Medications: Active Medications Generic Name Dose Route Start Last Admin Trade Name Freq PRN Reason Stop Dose Admin Albuterol/Ipratropium 3 ml 11/08/25 02:00 11/09/25 10:06 Ipratropium 0.5 Mg/Albuterol Sulfate 2.5 Mg (Base) Ampul.Neb 3 Ml INHALATION 3 ml Q6HRT [facility] Administration Benzonatate 200 mg 11/08/25 15:03 Benzonatate 100 Mg Capsule PO Q8H PRN Cough Diltiazem HCl 120 mg 11/08/25 09:00 11/09/25 11:11 Diltiazem Hcl Cd 120 Mg Cap.24hr BY MOUTH 120 mg DAILY [facility] Administration Doxazosin Mesylate 4 mg 11/08/25 09:00 11/09/25 11:11 Doxazosin Mesylate 4 Mg Tablet PO 4 mg DAILY [facility] Administration Fluticasone Propionate 2 spray 11/08/25 09:00 11/09/25 11:12 Fluticasone Propionate 0.05% Na Spr 16 Gm Btl (*Bkc) NASAL 2 spray DAILY [facility] Administration Fluticasone/Umeclidinium/Vilanterol 1 puff 11/08/25 08:00 11/09/25 10:06 Fluticasone/Umeclidin/Vilanter 100-62.5-25 Mcg Ellipta INHALATION 1 puff DAILYRT [facility] Administration Furosemide 20 mg 11/09/25 09:00 11/09/25 11:11 Furosemide 20 Mg Tablet PO 20 mg Q48H [facility] Administration Guaifenesin/Dextromethorphan 2 tab 11/08/25 21:00 11/09/25 11:11 Guaifenesin 600 Mg/Dextromethorphan 30 Mg Sr Tab 12 Hr PO 2 tab Q12HR [facility] Administration Ceftriaxone Sodium 1 gm/ 50 mls @ 100 mls/hr 11/08/25 20:00 11/08/25 21:07 Sodium Chloride IVPB Infused Q24H [facility] Infusion Azithromycin 500 mg/ Sodium 250 mls @ 250 mls/hr 11/08/25 21:00 11/08/25 22:00 Chloride IVPB 11/11/25 21:59 Infused Q24H [facility] Infusion Methylprednisolone Sodium Succinate 80 mg 11/08/25 18:00 11/09/25 05:44 Methylprednisolone Sod Succ 125 Mg Vial IV PUSH 80 mg Q6HR [facility] Administration Montelukast Sodium 10 mg 11/08/25 09:00 11/09/25 11:10 Montelukast Sodium 10 Mg Tablet PO 10 mg DAILY [facility] Administration Perflutren Lipid Microsphere 0 ml 11/08/25 00:23 Perflutren Lipid Microspheres 1.5 Ml Vial Diluted To 10 Ml Total Volume IV PUSH 11/11/25 00:23 ONCE PRN adequate visualization Protocol Rivaroxaban 20 mg 11/08/25 17:00 11/08/25 17:13 Rivaroxaban 20 Mg Tablet BY MOUTH 20 mg DAILY@1700 [facility] Administration Rosuvastatin Calcium 10 mg 11/08/25 09:00 11/09/25 11:11 Rosuvastatin 10 Mg Tablet BY MOUTH 10 mg DAILY [facility] Administration Radiology Results: ITS Impressions Chest X-Ray 11/07/25 16:43 IMPRESSION: 1. No acute findings. Emphysematous lungs. Chest CTA 11/07/25 18:24 IMPRESSION: 1. No evidence of pulmonary emboli. Thoracic aorta shows no acute findings. 2. Emphysematous lungs. Coronary artery calcification of left main, anterior descending and right coronary arteries. 3. Cardiomegaly with left atrial, right ventricular and right atrial enlargement with pericardial effusion. Dilated inferior vena cava and hepatic veins suggestive of elevated right cardiac pressures. 4. Calcific atherosclerotic changes at the origin of renal arteries. Head CT 11/08/25 17:06 IMPRESSION: 1. Small old lacunar infarcts at the left caudate nucleus and left subinsular white matter. No acute intracranial process. 2. Age-related changes including mild diffuse volume loss and moderate scattered white matter hypoattenuation consistent with chronic small vessel ischemic disease. 3. 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 Labs Labs: Laboratory Results - last 24 hr 11/09/25 05:05 WBC 13.1 H RBC 3.91 L Hgb 12.3 L Hct 36.9 L MCV 94.4 MCH 31.5 MCHC 33.3 RDW 13.1 Plt Count 145 L MPV 10.3 Sodium 134 L Potassium 4.8 Chloride 101 Carbon Dioxide 25 Anion Gap 8 BUN 27 H Creatinine 0.93 Estim Creat Clear Calc 46 Estimated GFR > 60 Glucose 249 H Calcium 8.4 Quality VTE Prophylaxis VTE prophylaxis: pharmacologic ordered
[2025-11-09] MEDS: RIVAROXABAN 20 MG TABLET BY MOUTH (17:38)
[2025-11-09] MEDS: AZITHROMYCIN IV 500 MG in SODIUM CHLORIDE 0.9% IV 250 ML IVPB (20:32)
[2025-11-09] MEDS: cefTRIAXone 1 GM in SODIUM CHLORIDE 0.9% IV 50 ML 100 ML IVPB (20:32)
[2025-11-09] MEDS: MELATONIN 5 MG TABLET 10 MG PO (22:02)
[2025-11-10] VITALS (14 sets, daily range): BP systolic 118–143; BP diastolic 58–67; PULSE 93–123; RESP 18–20; TEMP 36.3–36.6; O2SAT 94–95
[2025-11-10] MEDS: IPRATROPIUM 0.5 MG/ALBUTEROL SULFATE 2.5 MG (BASE) AMPUL.NEB 3 ML INHALATION ×3 (01:07→13:53)
[2025-11-10 05:35] LABS: Hematocrit 37.0 % (42.0-52.0); Hemoglobin 12.3 g/dL (14.0-18.0); Mean Corpuscular HGB Conc 33.2 g/dl (32-36); Mean Corpuscular Hemoglobin 31.4 pg (26-34); Mean Corpuscular Volume 94.4 fl (80-100); Platelet Count Result 154 k/mm3 (150-375); Red Blood Count 3.92 M/mm3 (4.6-6.20); White Blood Count 17.1 K/mm3 (4.5-10.0)
[2025-11-10 05:40] LABS: Anion Gap 8 mmol/L (4-12); Blood Urea Nitrogen 32 mg/dL (9-20); Calcium 9.2 mg/dL (8.4-10.2); Carbon Dioxide 23 mmol/L (22-30); Chloride 102 mmol/L (98-107); Estimated CRCL calculation 42 ml/min; Estimated Glomerular Filt Rate > 60; Glucose 180 mg/dL (65-110); Potassium 4.4 mmol/L (3.4-5.0); Sodium 133 mmol/L (137-145)
[2025-11-10] MEDS: FLUTICASONE/UMECLIDIN/VILANTER 100-62.5-25 MCG ELLIPTA 1 PUFF INHALATION (07:38)
[2025-11-10] MEDS: DOXAZOSIN MESYLATE 4 MG TABLET PO (08:27)
[2025-11-10] MEDS: dilTIAZem HCL CD 120 MG CAP.24HR BY MOUTH (08:27)
[2025-11-10] MEDS: ROSUVASTATIN 10 MG TABLET BY MOUTH (08:28)
[2025-11-10] MEDS: guaiFENesin 600 MG/DEXTROMETHORPHAN 30 MG SR TAB 12 HR 2 TAB PO (08:28)
[2025-11-10] MEDS: MONTELUKAST SODIUM 10 MG TABLET PO (08:28)
[2025-11-10] MEDS: FLUTICASONE PROPIONATE 0.05% NA SPR 16 GM BTL (*BKC) 2 SPRAY NASAL (08:28)
--- NOTE | 2025-11-10 14:26 | P.DS_ITS ---
DS: Admitting Diagnosis Discharge Date 11/10/25 Admitting Diagnosis COPD exacerbation, AFib DS: Discharge Diagnosis Discharge Diagnosis (1) Chronic obstructive pulmonary disease: Qualifiers: COPD type: unspecified COPD Qualified Code(s): J44.9 - Chronic obstructive pulmonary disease, unspecified Code(s): J44.9 - Chronic obstructive pulmonary disease, unspecified Status: Chronic Assessment and Plan: * O2 saturation 92% on room air. * start IV solu-medrol 11/08 * continue with Mucinex, DuoNebs * started on azithromycin and Rocephin * sputum and blood cultures are pending * may consider pulmonary consult -Chest CTA 11/07/25 18:24 IMPRESSION: 1. No evidence of pulmonary emboli. Thoracic aorta shows no acute findings. 2. Emphysematous lungs. Coronary artery calcification of left main, anterior descending and right coronary arteries. 3. Cardiomegaly with left atrial, right ventricular and right atrial enlargement with pericardial effusion. Dilated inferior vena cava and hepatic veins suggestive of elevated right cardiac pressures. 4. Calcific atherosclerotic changes at the origin of renal arteries. -continue with Singulair (2) Atrial fibrillation: Qualifiers: Atrial fibrillation type: longstanding persistent Qualified Code(s): I48.11 - Longstanding persistent atrial fibrillation Code(s): I48.91 - Unspecified atrial fibrillation Status: Chronic Assessment and Plan: * The patient is in AFib. He has had a past history of having a cardioversion in the past. * rate is controlled at this time * continue with diltiazem, Xarelto (3) BPH (benign prostatic hyperplasia): Qualifiers: Lower urinary tract symptom presence: unspecified whether lower urinary tract symptoms present Qualified Code(s): N40.0 - Benign prostatic hyperplasia without lower urinary tract symptoms Code(s): N40.0 - Benign prostatic hyperplasia without lower urinary tract symptoms Status: Acute Assessment and Plan: * continue doxazosin (4) Essential hypertension: Code(s): I10 - Essential (primary) hypertension Status: Chronic Assessment and Plan: * continue with Lasix, doxazosin, Cardizem, and Lasix (5) Dyslipidemia: Code(s): E78.5 - Hyperlipidemia, unspecified Status: Chronic Assessment and Plan: * continue with rosuvastatin (6) Pericardial effusion: Code(s): I31.39 - Other pericardial effusion (noninflammatory) Status: Acute Assessment and Plan: * cardiology has been consulted * echo has been ordered. -Chest CTA 11/07/25 18:24 IMPRESSION: 1. No evidence of pulmonary emboli. Thoracic aorta shows no acute findings. 2. Emphysematous lungs. Coronary artery calcification of left main, anterior descending and right coronary arteries. 3. Cardiomegaly with left atrial, right ventricular and right atrial enlargement with pericardial effusion. Dilated inferior vena cava and hepatic veins suggestive of elevated right cardiac pressures. 4. Calcific atherosclerotic changes at the origin of renal arteries. * continue with Lasix * The patient recently had a viral infection RSV which could have caused the pericardial effusion. (7) AMS (altered mental status): Code(s): R41.82 - Altered mental status, unspecified Status: Acute Assessment and Plan: * per family patient is confused at baseline, but this is worse * head CT ordered * continue IV antibiotics * reorient as needed * no focal deficits noted on exam * 11/09: Patient appears much more alert and oriented today according to daughter/, remains A&O x3 DS: Summary Hospital Course Reason for hospitalization: Altered mental status Hospital Course: The patient is an 89-year-old male with a history of COPD, longstanding persistent atrial fibrillation on anticoagulation, prior CVA, carotid stenosis, hypertension, and dyslipidemia who presented on 11/07/2025 with worsening cough, congestion, and acute on chronic altered mental status following a recent RSV infection treated with steroids. Initial evaluation showed stable vital signs with intermittent borderline hypotension, mild hyponatremia, mild anemia, and no leukocytosis. Infectious workup was notable for negative COVID?19, influenza, a nd RSV testing, unremarkable urinalysis for infection, and chest X-ray without acute infiltrate. He was empirically started on ceftriaxone and azithromycin for suspected COPD exacerbation with possible superimposed infection, along with bronchodilators, mucolytics, and IV methylprednisolone. CT angiography of the chest ruled out pulmonary embolism but revealed emphysematous lungs and a moderate pericardial effusion with cardiomegaly and signs of elevated right- sided pressures, prompting cardiology consultation. Transthoracic echocardiogram demonstrated a small pericardial effusion without evidence of tamponade, and conservative management with continuation of home-dose furosemide was recommended. Atrial fibrillation remained rate controlled on diltiazem, and anticoagulation with rivaroxaban was continued. Head CT showed only chronic ischemic changes without acute pathology. During hospitalization, the patient?s mental status steadily improved to baseline per family, respiratory symptoms improved, and he remained hemodynamically stable on room air. Mild leukocytosis and hyperglycemia were attributed to steroid therapy. Overall, the patient showed clinical improvement with supportive care, management of COPD exacerbation, and monitoring of the pericardial effusion without need for invasive intervention. By 11/10, patient remained alert and oriented x3 with improved lung sounds and a minimal nonproductive cough. Heart rate had decreased into the 90s and patient otherwise has no complaints or concerns at this time. Denies any shortness of breath, chest pain, nausea/vomiting, headaches/dizziness or abdominal pain. Blood cultures preliminary results showed no growth to date. We will have the patient follow-up with Cardiology in the outpatient setting to reassess pericardial effusion and to adjust any medications as needed. Will also have the patient follow-up with his primary care physician. Plan to discharge on prednisone for 5 days back to personal home. Patient will have several family members able to help him out throughout the house. Patient hemodynamically stable for discharge at this time and is amenable to discharging today. Family is also in agreement for discharge at this time. Status at Discharge Functional status at discharge: independent ambulation Overall status at discharge: patient is back to baseline Time Spent with Patient Time attestation: Total time spent providing and/or coordinating discharge services: 32 Exam Const: General: cooperative, healthy appearing, comfortable, no acute distress, well developed, awake, Physically active, average body habitus and well nourished Nutritional Appearance: average body habitus and well nourished Orientation/consciousness: oriented to person HENMT: Head: normal to inspection, No palpable skull fracture present, normocephalic, atraumatic and abrasion Face/Nose/Sinus: Normal nares present Mouth: Yes moist mucous membranes Eyes: General: appearance normal, both eyes and all related structures Alignment and Position: alignment normal Periorbital: periorbital findings normal Sclera: sclerae normal Pupils: Equal, round and reactive pupils present Neck: Neck: normal visual inspection, full ROM, no lymphadenopathy, trachea midline and supple Chest: Chest palpation & inspection: normal inspection of the chest Resp: Effort & Inspection: normal respiratory effort Auscultation: diminished lung sounds diffuse Cardio: Palpation: normal PMI Rate: regular rate Rhythm: regular rhythm Heart sounds: S1 normal heart sound present and S2 normal heart sound present Peripheral pulses: Peripheral pulses 2+ throughout GI: Inspection: normal to inspection Auscultation: normal bowel sounds Rectal Exam: deferred : General: Yes no CVA tenderness Back/Spine/Pelvis: Back: no CVA tenderness Cervical Spine: cervical ROM normal Skin: General skin exam: normal color and no rashes or lesions noted Lesions: no lesions Rashes: no rashes Trauma: no lacerations or abrasions Wounds: no wounds Hair: normal Nails: normal Neuro: General: oriented to person Cranial nerves: Yes Equal, round and reactive pupils present and Yes Normal hearing present Speech: normal speech Gait exam (Neuro): Normal gait present Motor exam (neuro): 5/5 motor strength present throughout Sensory Exam: normal sensation Other: alert and oriented x 3 Extrem: General: normal to inspection Right upper extremity: normal to inspection and shoulder/upper arm Left upper extremity: normal to inspection and shoulder/upper arm Right lower extremity: normal to inspection Left lower extremity: normal to inspection Psych: Appearance: grossly normal Mental Status: mental status grossly normal Speech and movement: Normal speech and movement present Affect: normal affect Attitude: cooperative Thought process: Normal thought process present DS: Data Data Completed and Pending Labs on day of discharge: Labs from last 24 hours 11/10/25 04:43 WBC 17.1 H RBC 3.92 L Hgb 12.3 L Hct 37.0 L MCV 94.4 MCH 31.4 MCHC 33.2 RDW 13.3 Plt Count 154 MPV 10.2 Sodium 133 L Potassium 4.4 Chloride 102 Carbon Dioxide 23 Anion Gap 8 BUN 32 H Creatinine 1.02 Estim Creat Clear Calc 42 Estimated GFR > 60 Glucose 180 H Calcium 9.2 Preliminary micro results at discharge 11/09/25 17:45 Sputum Culture - Preliminary Sputum 11/07/25 19:15 Blood Culture - Preliminary Blood 11/07/25 19:26 Blood Culture - Preliminary Blood Discharge Plan Discharge Attending physician on discharge: Kate Brambila Consulting providers: Radha Bae; Drake Aguilar Discharging Clinician: Drake Aguilar Anticipated Discharge Date/Time: 11/10/25 14:16 Patient Disposition: Home Activity: as tolerated Diet: regular Discharge Instructions: Discharge disposition: Home Take medications as prescribed. You will discharged on Prednisone to be taken once daily for 5 days. The dose is 40 mg, so take 4-10mg tablets once daily. Monitor blood pressures Take caution while standing, rising, or moving Change positions slowly taking a break between each position change If you standing feel dizzy sit back down and take a break Encouraged to continue with yearly vaccinations Return to the emergency department if you develop sudden shortness of breath, chest pain, nausea, vomiting, upset stomach or intractable diarrhea Return to the emergency department if you develop fever greater than 101.5 Follow-up with the primary care physician within 1-2 weeks Follow-up with Cardiology in 1-2 weeks to reassess your pericardial effusion and adjust medications as needed. Thank you for [facility] for your healthcare needs Patient Instructions: Antibiotic Form Patient Language: Azerbaijani Stand Alone Forms: General Discharge Information Follow-up/Referrals: Julien Dewitt MD [Primary Care Provider, Family Practice] Discharge Medications: New prednisone 10 mg tablet 40 mg PO DIRECTED Qty: 20 0RF Rx Instructions: see taper instructions Continued fluticasone propionate 50 mcg/actuation spray,suspension 1 spray intranasal DAILY Qty: 16 0RF Rx Instructions: administer into each nostril furosemide 20 mg tablet 20 mg PO EVERY OTHER DAY psyllium husk (with sugar) [Daily Fiber (psyllium-sucrose)] 3 gram/7 gram Powder 1 tbsp PO DAILY albuterol sulfate 90 mcg/actuation HFA aerosol inhaler 2 puff inhalation Q4H PRN (Reason: Dyspnea) 30 Days Qty: 1 0RF Rx Instructions: INHALE 2 PUFFS BY MOUTH EVERY 4 TO 6 HOURS NEEDED Trelegy Ellipta 100-62.5-25 mcg blister with device 1 inh INHALATION DAILY Qty: 60 11RF albuterol sulfate 2.5 mg /3 mL (0.083 %) solution for nebulization See Rx Instructions .ROUTE .COMPLEX Qty: 360 2RF Dose Instruction: USE 1 VIAL IN NEBULIZER EVERY 4 TO 6 HOURS NEEDED FOR SHORTNESS OF BREATH OR WHEEZING Rx Instructions: USE 1 VIAL IN NEBULIZER EVERY 6 HOURS NEEDED FOR SHORTNESS OF BREATH OR WHEEZING montelukast 10 mg tablet 10 mg PO DAILY Qty: 90 2RF doxazosin 4 mg tablet 4 mg PO DAILY Qty: 90 2RF Rx Instructions: TAKE 1 TABLET BY MOUTH EVERY DAY diltiazem HCl [DILT-XR] 120 mg capsule,ext.rel 24h degradable See Rx Instructions .ROUTE .COMPLEX Qty: 90 2RF Dose Instruction: TAKE 1 CAPSULE(120 MG) BY MOUTH DAILY Rx Instructions: TAKE 1 CAPSULE(120 MG) BY MOUTH DAILY Xarelto 20 mg tablet See Rx Instructions .ROUTE .COMPLEX Qty: 90 0RF Dose Instruction: TAKE 1 TABLET BY MOUTH DAILY Rx Instructions: TAKE 1 TABLET BY MOUTH DAILY rosuvastatin 10 mg tablet See Rx Instructions .ROUTE .COMPLEX Qty: 90 3RF Dose Instruction: TAKE 1 TABLET BY MOUTH DAILY Rx Instructions: TAKE 1 TABLET BY MOUTH DAILY Date of admission: 11/08/25 07:53 Primary Care Provider: Julien Dewitt Admitting Provider: Kate Brambila Attending physician on admission: Kate Brambila Condition: Stable Quality VTE Prophylaxis VTE prophylaxis: pharmacologic ordered
== END 2025-11-10 15:50 | disposition home or self-care (01) | DRG 191 ==
LOC: ANHED 19:48 → ANH3MEDSUR 19:55 → ANH2MED 20:02
PROVIDERS: Nurse Practitioner; Admitting Provider General Practice; Emergency Provider Emergency Medicine; PCP Family Medicine; Visit Provider Physician Assistant
DX: J44.1 Chronic obstructive pulmonary disease with (acute) exacerbation (principal); E87.1 Hypo-osmolality and hyponatremia; I31.39 Other pericardial effusion (noninflammatory); I48.11 Longstanding persistent atrial fibrillation; N40.0 Benign prostatic hyperplasia without lower urinary tract symptoms; E78.5 Hyperlipidemia, unspecified; I10 Essential (primary) hypertension; I65.29 Occlusion and stenosis of unspecified carotid artery; R41.82 Altered mental status, unspecified; R62.7 Adult failure to thrive; D64.9 Anemia, unspecified; M19.90 Unspecified osteoarthritis, unspecified site; Z20.822 Contact with and (suspected) exposure to COVID-19; G47.33 Obstructive sleep apnea (adult) (pediatric); Z87.09 Personal history of other diseases of the respiratory system; Z79.01 Long term (current) use of anticoagulants; Z86.73 Personal history of transient ischemic attack (TIA), and cerebral infarction without residual deficits; Z85.51 Personal history of malignant neoplasm of bladder; Z87.891 Personal history of nicotine dependence
CPT/HCPCS: 36415; 70450; 71046; 71275; 80048; 80053; 81001; 85025; 85027; 85610; 85730; 87040; 87070; 87205; 87637; 93005; 93306; 94640; 94667; 96365; 96375; 97161; 99285; A9270; G0378; J0456; J0696; J1885; J2405; J2919; J7050; Q9967